=== PATIENT | male | born 1965 | race Caucasian/White ===

== ENCOUNTER 2017-06-20 19:58 | Inpatient (IN) | payer BC ==
[~2017-06-20] VITALS: Ht 188 cm; Wt 136.2 kg
[~2017-06-20 19:58] MED LIST: AMLO-110 PO; AVN4 PO; CEPH500C PO; DIABETIC MEDS; JANUMET; LISI-725 PO; LRT5 PO; OXYC1TAB3 PO; SIMV20TA2 PO
[2017-06-20] MEDS ORDERED: SODIUM CHLORIDE 0.9% 1000ML 1,000 ML IV STA (20:17)
[2017-06-20] MEDS ORDERED: ACETAMINOPHEN 500 MG TAB PO STA (20:17)
[2017-06-20] MEDS ORDERED: INSDGIPEN SC (20:24)
[2017-06-20] MEDS ORDERED: METF-384 PO (20:24)
[2017-06-20] MEDS ORDERED: LIRA18IN SC (20:24)
[2017-06-20] MEDS ORDERED: OPTIRAY 320 IV PRN (20:30)
[2017-06-20] MEDS ORDERED: PIPERACILLIN/TAZOBACTAM 4.5 GM/100ML D5W IV STA (20:34)
[2017-06-20] MEDS ORDERED: VANCOMYCIN IV 2,800 MG in SODIUM CHLORIDE 0.9% 500ML 500 ML IV STA (20:34)
[2017-06-20] MEDS ORDERED: VANCOMYCIN CONSULT ACTIVE PRN (20:45)
[2017-06-20] MEDS ORDERED: ESCI10TA17 PO (20:48)
[2017-06-20] MEDS ORDERED: LISI-725 PO (20:48)
[2017-06-20] MEDS ORDERED: METF500T5 PO (20:48)
[2017-06-20] MEDS ORDERED: REPA2TAB12 PO (20:48)
[2017-06-20] MEDS ORDERED: EMPA1TAB3 PO (20:48)
[2017-06-20] MEDS ORDERED: AMLO-110 PO (20:48)
[2017-06-20] MEDS ORDERED: PRAV20TA PO (20:48)
[2017-06-20] MEDS ORDERED: WARF3TAB6 PO (20:48)
[2017-06-20 20:58] LABS: INR 1.8 (0.9-1.1); PTT PATIENT 33.8 SECONDS (21.0-31.0)
--- NOTE | 2017-06-20 21:07 | EMERGENCY ROOM VISIT NOTE ---
History Report prepared by Radha: Daisy Bass Under the Supervision of: Dr. Gisele Barr M.D. First contact with patient: 20:17 Chief Complaint: CARDIAC ASSESSMENT Stated Complaint: L LEG SWOLLEN, NUMBNESS IN ARM Nursing Triage Summary: patient reports pain in bilateral arm pain radiating from shoulders,left sided chest pain radiating into neck and arms,patient reports hx of DVT of left leg,left leg swelling and calf redness since this weekend,left leg pain History of Present Illness The patient is a 52 year old male who presents to the Emergency Room for a cardiac assessment. The patient states that he has had intermittent chest pain that is shooting down both his arms and radiates into his back and neck starting today. He notes that this started at the same time the pain in his left leg started. He reports that it hurts from his ankle to his groin. He states that it became red as well. The patient complains of nausea and a blister on his left big toe. The patient denies chest pain right now, history of a heart attack, and has had a stress test in the past. The patient notes a history of blood clots, staph, and diabetes. He notes that he had his INR for his Coumadin checked recently, but does not know what the results were. 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 Source of History: patient Onset: today Position: chest Quality: other (radiating) Timing: intermittent Associated Symptoms: + neck pain, + nausea, + back pain, No chest pain Note: The patient complains of left leg pain and a blister on his left big toe. Review of Systems See HPI for pertinent positives & negatives. A total of 10 systems reviewed and were otherwise negative. Past Medical & Surgical Medical Problems: (1) Chest pain (2) Diabetes (3) HTN (hypertension) (4) Hx of blood clots Family History Cancer Diabetes mellitus Heart disease Hypertension Social History Smoking Status: Never Smoker Alcohol Use: none Marital Status: Housing Status: lives with roommate Occupation Status: employed Current/Historical Medications Scheduled Amlodipine (Norvasc), 5 MG PO DAILY Empagliflozin (Jardiance), 25 MG PO DAILY Escitalopram (Lexapro), 10 MG PO DAILY Insulin Glargine (Lantus Solostar), 50 UNITS SC QAM Liraglutide (Victoza), 1.8 MG SC DAILY Lisinopril (Zestril), 20 MG PO DAILY Metformin Hcl Er (Glucophage Er), 1,000 MG PO BID Pravastatin (Pravachol ), 20 MG PO HS Repaglinide (Prandin), 2 MG PO AC Warfarin Sod (Jantoven), 6-9 MG PO DIRECTED Allergies Coded Allergies: No Known Allergies (Verified , 06/20/17) Physical Exam Vital Signs Date Time Temp Pulse Resp B/P (MAP) Pulse Ox O2 Delivery O2 Flow Rate FiO2 06/20/17 22:59 109 18 122/65 91 Room Air 06/20/17 20:19 132 06/20/17 20:03 39.0 144 20 122/73 96 Room Air Physical Exam Vital signs reviewed. Noted to be febrile and tachycardic. General: Chronically ill-appearing, in no significant distress. HEENT: No scleral icterus, PERRLA, neck supple. Atraumatic. Cardiovascular: Regular rate and rhythm, no extra sounds. Pulmonary: Clear to auscultation bilaterally, normal work of breathing. Abdomen: Soft, obese abdomen, nontender, nondistended, positive bowel sounds. Musculoskeletal: Atraumatic, left lower extremity with erythema circumferentially to the distal lower extremity centrally to the patella. No lymphangitic streaking appreciated. Blister noted to the top of the right great toe that is with open skin to the plantar surface. Serosanguineous drainage noted. No tenderness or crepitus appreciated. Neurologic: Patient awake alert and oriented x 3, full strength in all 4 extremities. Cranial nerves 2 through 12 grossly intact. Skin: Left lower extremity skin changes as noted above, sunburn to the upper back. Otherwise warm to touch. Medical Decision & Procedures ER Provider Diagnostic Interpretation: Radiology results as stated below per my review and radiologist interpretation: L FOOT MIN 3 VIEWS ROUTINE HISTORY: 52 years-old Male L foot open wound great toe,osteo chronic left foot pain with open wound of the left great toe COMPARISON: None available TECHNIQUE: 3 views of the left foot FINDINGS: Moderate soft tissue swelling with deep tissue air about the distal great toe compatible with patient history of skin ulcer. No erosive changes to suggest osteomyelitis. No acute fracture or dislocation. 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 Peripheral vascular disease. No opaque foreign body. Small plantar and moderate Achilles enthesophytes about the calcaneus. IMPRESSION: 1. Moderate soft tissue swelling with skin ulcer of the great toe. No evidence of acute osteomyelitis at this time. 2. No acute fracture or dislocation. 3. Peripheral vascular disease. The above report was generated using voice recognition software. It may contain grammatical, syntax or spelling errors. Electronically signed by: Chris La M.D. 06/20/2017 9:06 PM Dictated Date/Time: 06/20/2017 9:04 PM (CHEST FOR PE) ANGIO WITH CT DOSE: 690.73 mGy.cm HISTORY: 52 years-old Male presents with acute fever, chest pain and shortness of breath TECHNIQUE: Multiple CTA images of the chest were obtained after the intravenous administration of 99 ml Optiray 320. Coronal and sagittal MIPS were obtained from the axial data set and were submitted for review. A dose lowering technique was utilized adhering to the principles of ALARA. COMPARISON: Chest radiograph 03/26/2014 FINDINGS: CTA: Heart is normal in size without pericardial effusion. Coronary arterial calcifications are present. Left vertebral artery emanates strictly from the aortic arch. Imaged great vessels are patent. Thoracic aorta is normal in course and caliber without aneurysm or dissection. Evaluation of the pulmonary bowden is very limited secondary to contrast bolus timing and respiratory motion. No central pulmonary embolus identified. The lobar, segmental and subsegmental branches are not well seen. CT CHEST: No dominant thyroid nodule or pathologic adenopathy identified. Respiratory motion limits evaluation of the lung parenchyma. There is no pneumothorax, pleural effusion or focal airspace consolidation. No suspicious pulmonary nodules or masses. Central airways are patent. Cholelithiasis without CT evidence of acute cholecystitis. No acute process of the imaged upper abdomen. Moderate symmetric bilateral gynecomastia. Bones appear intact. Multilevel endplate spurring about the spine. IMPRESSION: 1. Limited evaluation of the pulmonary arterial tree secondary to contrast bolus timing and respiratory motion. No central pulmonary embolus identified. 2. No focal airspace consolidation or pathologic adenopathy. 3. Cholelithiasis without CT evidence of acute cholecystitis. The above report was generated using voice recognition software. It may contain grammatical, syntax or spelling errors. Electronically signed by: Chris La M.D. 06/20/2017 10:01 PM Dictated Date/Time: 06/20/2017 9:52 PM Laboratory Results Test 06/20/17 20:17 06/20/17 20:20 06/20/17 20:29 06/20/17 20:30 Erythrocyte Sedimentation Rate 1 mm/hr (0-14) Platelet Estimate NORMAL Activated Partial Thromboplast Time 33.8 SECONDS (21.0-31.0) Partial Thromboplastin Ratio 1.3 Estimated Average Glucose 174 mg/dl Hemoglobin A1c 7.7 % (4.5-5.6) Magnesium Level 2.1 mg/dl (1.8-2.4) Total Bilirubin 1.3 mg/dl (0.2-1) Direct Bilirubin 0.3 mg/dl (0-0.2) Aspartate Amino Transf (AST/SGOT) 41 U/L (15-37) Alanine Aminotransferase (ALT/SGPT) 53 U/L (12-78) Alkaline Phosphatase 99 U/L (45-117) Total Creatine Kinase 146 U/L (39-308) C-Reactive Protein 3.08 mg/dl (0-0.29) Total Protein 8.0 gm/dl (6.4-8.2) Albumin 3.9 gm/dl (3.4-5.0) Lipase 175 U/L (73-393) Beta-Hydroxybutyric Acid 2.74 mg/dL (0.2-2.81) Thyroid Stimulating Hormone (TSH) 0.493 uIu/ml (0.300-4.500) Influenza Type A (RT-PCR) Neg for Influ A (NEG) Influenza Type B (RT-PCR) Neg for Influ B (NEG) Bedside Troponin I < 0.030 ng/ml (0-0.045) Test 06/20/17 21:54 06/20/17 23:13 Urine Color YELLOW Urine Appearance CLEAR (CLEAR) Urine pH 5.0 (4.5-7.5) Urine Specific [place] 1.037 (1.000-1.030) Urine Protein NEG (NEG) Urine Glucose (UA) 3+ (NEG) Urine Ketones NEG (NEG) Urine Occult Blood NEG (NEG) Urine Nitrite NEG (NEG) Urine Bilirubin NEG (NEG) Urine Urobilinogen NEG (NEG) Urine Leukocyte Esterase NEG (NEG) Lactic Acid Level 1.5 mmol/L (0.4-2.0) Laboratory results per my review. Medications Administered Medications (Trade) Dose Ordered Sig/Navjot Route Start Time Stop Time Status Last Admin Dose Admin Sodium Chloride 1,000 ml @ 999 mls/hr Q1H1M STAT IV 06/20/17 20:17 06/20/17 21:17 DC 06/20/17 20:31 999 MLS/HR Acetaminophen (Tylenol Tab) 1,000 mg NOW STAT PO 06/20/17 20:17 06/20/17 20:20 DC 06/20/17 20:55 1,000 MG Vancomycin HCl 2800 mg/Sodium Chloride 556 ml @ 200 mls/hr ONE STAT IV 06/20/17 20:34 06/20/17 23:20 DC 06/20/17 23:01 200 MLS/HR Piperacillin Sod/ Tazobactam Sod (Zosyn Iv) 4.5 gm NOW STAT IV 06/20/17 20:34 06/20/17 20:38 DC 06/20/17 20:55 4.5 GM Insulin Human Regular (novoLIN-R U-100 PER UNIT) 10 units NOW STAT SC 06/20/17 21:38 06/20/17 21:40 DC 06/20/17 23:12 10 UNITS Sodium Chloride 1,000 ml @ 500 mls/hr Q2H ONCE IV 06/20/17 22:45 06/21/17 00:44 DC 06/20/17 22:00 500 MLS/HR ECG Per My Interpretation Indication: chest pain Rate (beats per minute): 130 Rhythm: sinus tachycardia Findings: no acute ischemic change, no ectopy, other (previous inferior infarct , previous anterior infarct) ED Course 2016: Ordered Tylenol Tab 1000 mg PO, NSS 1000 ml @ 999 mls/hr IV. 2027: Past medical records reviewed. The patient was evaluated in room C8. A complete history and physical examination was performed. 2033: Ordered Zosyn Iv 4.5 gm IV, Vancomycin HCl 2800 mg/Sodium Chloride 556 ml @ 200 mls/hr IV. 2215: I reevaluated the patient and updated him on his results. I notified him of the treatment plan. He verbally expressed understanding and agreement. 2218: I reviewed the patient's case with Dr. Nuno Hospitalist. He will evaluate the patient for further management. Medical Decision Differential diagnosis: Influenza, other viral illness, pneumonia, urinary tract infection, metabolic abnormality, medication effect, cellulitis, meningitis, intra-abdominal source. This patient was evaluated and appeared to be in some discomfort. He is noted to be markedly febrile. Patient was given Tylenol p.o. IV fluids were initiated. Blood cultures and lactic acid were obtained. Patient was noted to have an elevated WBC. His tachycardia patient was started on IV vancomycin and IV and left great toe wound. X-ray of the foot reveal no evidence of acute fracture, no evidence of osteomyelitis at this time. Sed rate is normal, CRP is elevated. Ultrasound of the left lower extremity reveals likely chronic occlusive changes of the deep veins in the left lower extremity. INR is 1.8. CT scan of the chest reveals no evidence of central pulmonary embolus however the study is somewhat degraded. Patient is noted to be hyperglycemic with a glucose of 400. He was given 10 units of subcutaneous regular insulin. The patient was informed of the findings. He will be evaluated by the hospitalist service for admission and further management. Medication Reconcilliation Current Medication List: was personally reviewed by me Blood Pressure Screening Patient's blood pressure: Normal blood pressure Will be further monitored by the hospitalist. Consults Time Called: 2213 Consulting Physician: Dr. Nuno Hospitalist Returned Call: 2218 I reviewed the patient's case with Dr. Nuno Hospitalist. He will evaluate the patient for further management. Impression Primary Impression: Sepsis Additional Impressions: Cellulitis of left lower extremity Hyperglycemia Subtherapeutic international normalized ratio (INR) Scribe Attestation The scribe's documentation has been prepared under my direction and personally reviewed by me in its entirety. I confirm that the note above accurately reflects all work, treatment, procedures, and medical decision making performed by me. Departure Information Dispostion Being Evaluated By Hospitalist Referrals Linsey Mcguire N.P. (PCP) Patient Instructions My [facility] Problem Qualifiers
[2017-06-20 21:08] LABS: ALBUMIN 3.9 gm/dl (3.4-5.0); CALCIUM 9.6 mg/dl (8.5-10.1); CREATININE 1.35 mg/dl (0.60-1.40); POTASSIUM 4.4 mmol/L (3.5-5.1)
[2017-06-20 21:13] LABS: HEMATOCRIT 47.4 % (42-52); HEMOGLOBIN 16.6 g/dL (14.0-18.0); MEAN CELL VOLUME 95.6 fL (80-100); MEAN CORPUSCULAR HEMOGLOBIN 33.5 pg (25-34); MEAN PLATELET VOLUME 12.1 fL (7.4-10.4); PLATELET COUNT 118 K/uL (130-400); RED CELL DISTRIBUTION WIDTH CV 13.2 % (11.5-14.5); RED CELL DISTRIBUTION WIDTH SD 45.7 fL (36.4-46.3); WHITE BLOOD COUNT 19.45 K/uL (4.8-10.8)
[2017-06-20 21:15] LABS: BASO % 0.1 %; BASO ABS # 0.02 K/uL (0-0.2); IG# 0.07 K/uL (0.00-0.02); LYMPH ABS # 0.59 K/uL (1.2-3.4); MONO ABS # 0.97 K/uL (0.11-0.59); NEUT % 91.5 %
[2017-06-20 21:31] LABS: INFLUENZA A PCR Neg for Influ A (NEG); INFLUENZA B PCR Neg for Influ B (NEG)
[2017-06-20] MEDS ORDERED: NovoLIN-R INSULIN PER UNIT CHARGE SC STA (21:38)
--- NOTE | 2017-06-20 22:02 | DIAGNOSTIC IMAGING REPORT ---
(CHEST FOR PE) ANGIO WITH CT DOSE: 690.73 mGy.cm HISTORY: 52 years-old Male presents with acute fever, chest pain and shortness of breath TECHNIQUE: Multiple CTA images of the chest were obtained after the intravenous administration of 99 ml Optiray 320. Coronal and sagittal MIPS were obtained from the axial data set and were submitted for review. A dose lowering technique was utilized adhering to the principles of ALARA. COMPARISON: Chest radiograph 03/26/2014 FINDINGS: CTA: Heart is normal in size without pericardial effusion. Coronary arterial calcifications are present. Left vertebral artery emanates strictly from the aortic arch. Imaged great vessels are patent. Thoracic aorta is normal in course and caliber without aneurysm or dissection. Evaluation of the pulmonary bowden is very limited secondary to contrast bolus timing and respiratory motion. No central pulmonary embolus identified. The lobar, segmental and subsegmental branches are not well seen. CT CHEST: No dominant thyroid nodule or pathologic adenopathy identified. Respiratory motion limits evaluation of the lung parenchyma. There is no pneumothorax, pleural effusion or focal airspace consolidation. No suspicious pulmonary nodules or masses. Central airways are patent. Cholelithiasis without CT evidence of acute cholecystitis. No acute process of the imaged upper abdomen. Moderate symmetric bilateral gynecomastia. Bones appear intact. Multilevel endplate spurring about the spine. IMPRESSION: 1. Limited evaluation of the pulmonary arterial tree secondary to contrast bolus timing and respiratory motion. No central pulmonary embolus identified. 2. No focal airspace consolidation or pathologic adenopathy. 3. Cholelithiasis without CT evidence of acute cholecystitis. The above report was generated using voice recognition software. It may contain grammatical, syntax or spelling errors. Electronically signed by: Chris La M.D. 06/20/2017 10:01 PM Dictated Date/Time: 06/20/2017 9:52 PM
[2017-06-20] MEDS ORDERED: SODIUM CHLORIDE 0.9% 1000ML 1,000 ML IV ONE (22:45)
--- NOTE | 2017-06-20 22:54 | DIAGNOSTIC IMAGING REPORT ---
L VENOUS DOPP LOWER EXT UNILAT HISTORY: 52 years-old Male LLE DVT acute left lower extremity pain and swelling COMPARISON: None available TECHNIQUE: Multiple real-time sonographic images of the left lower extremity deep venous structures were obtained assessing grayscale appearance, color and spectral flow. FINDINGS: Common femoral vein is patent. Partially occlusive thrombus of the superficial femoral vein with patent adjacent collateral vessels noted. Partially occlusive thrombus is also seen within the popliteal vein with echogenic stranding. The calf veins are not well visualized. Areas of intermittent flow are noted within the posterior tibial and peroneal veins. Varicosities of the left calf. Left popliteal cyst measures up to 10.6 cm and is mildly complex. IMPRESSION: 1. Partially occlusive thrombus of the superficial femoral and popliteal veins with suggested adjacent collateral vessels suggests possible chronic etiology. 2. Intermittent flow within the posterior tibial and peroneal veins may also reflect partially occlusive thrombus. 3. Large left popliteal cyst. The above report was generated using voice recognition software. It may contain grammatical, syntax or spelling errors. Electronically signed by: Chris La M.D. 06/20/2017 10:53 PM Dictated Date/Time: 06/20/2017 10:49 PM
[2017-06-20] MEDS ORDERED: INSULIN GLARGINE SOLOSTAR 100 UNITS/ML 3 ML PEN SC STA (23:44)
[2017-06-20] MEDS ORDERED: WARFARIN SOD 5 MG TAB PO STA (23:46)
[2017-06-21] VITALS (7 sets, daily range): BP systolic 106–152; BP diastolic 65–89; PULSE 70–91; TEMP 36.9–38.1; O2SAT 92–98; Ht 188 cm; Wt 136.2 kg
[2017-06-21] MEDS ORDERED: GLUCAGON FOR INJ 1 MG VIAL SQ PRN (00:15)
[2017-06-21] MEDS ORDERED: MoRPHine SULFATE 2 MG/ML CARP IV PRN (00:15)
[2017-06-21] MEDS ORDERED: ACETAMINOPHEN 325 MG TAB PO PRN (00:15)
[2017-06-21] MEDS ORDERED: TRAMADOL HCL 50 MG TAB PO PRN (00:15)
[2017-06-21] MEDS ORDERED: CARBOHYDRATES FOR HYPOGLYCEMIA PO PRN (00:15)
[2017-06-21] MEDS ORDERED: DEXTROSE 50% 50 ML SYR IV PRN (00:15)
[2017-06-21] MEDS ORDERED: NITROGLYCERIN 0.4 MG SL PER TAB CHARGE SL PRN (00:15)
[2017-06-21] MEDS ORDERED: GLUCOSE 10 TABS/TUBE PO PRN (00:15)
[2017-06-21] MEDS ORDERED: GLUCOSE 40% GEL 15 GM TUBE PO PRN (00:15)
[2017-06-21] MEDS ORDERED: PROCHLORPERAZINE INJ 5 MG in SYRINGE 4 ML IV PRN (00:15)
[2017-06-21] MEDS ORDERED: INSULIN ASPART 100 UNITS/ML 3 ML PEN SC STA (00:16)
[2017-06-21] MEDS: CEFEPIME IV 2,000 MG in SYRINGE 7.5 ML IV SCH ×2 (04:00→16:31)
[2017-06-21 05:17] LABS: HEMATOCRIT 42.9 % (42-52); HEMOGLOBIN 15.3 g/dL (14.0-18.0); MEAN CELL VOLUME 94.9 fL (80-100); MEAN CORPUSCULAR HEMOGLOBIN 33.8 pg (25-34); MEAN CORPUSCULAR HGB CONC 35.7 g/dl (32-36); RED CELL DISTRIBUTION WIDTH CV 13.3 % (11.5-14.5); RED CELL DISTRIBUTION WIDTH SD 45.8 fL (36.4-46.3); WHITE BLOOD COUNT 11.39 K/uL (4.8-10.8)
[2017-06-21 05:18] LABS: MEAN PLATELET VOLUME 11.2 fL (7.4-10.4); PLATELET COUNT 95 K/uL (130-400)
[2017-06-21 05:23] LABS: INR 1.6 (0.9-1.1)
[2017-06-21 05:35] LABS: BASO % 0.2 %; BASO ABS # 0.02 K/uL (0-0.2); IG# 0.01 K/uL (0.00-0.02); LYMPH % 6.8 %; LYMPH ABS # 0.77 K/uL (1.2-3.4); MONO % 7.2 %; MONO ABS # 0.82 K/uL (0.11-0.59); NEUT % 85.7 %; NEUT ABS # 9.77 K/uL (1.4-6.5)
--- NOTE | 2017-06-21 05:44 | HISTORY & PHYSICAL EXAMINATION ---
DATE OF ADMISSION: 06/20/2017 PRIMARY CARE DOCTOR: Dr. Austin. CHIEF COMPLAINT: Chest pain, left leg swelling. HISTORY OF PRESENT ILLNESS: History obtained from patient and records. 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 chronic thrombocytopenia. Patient was not feeling well yesterday. He noticed a blister on the left great toe, which subsequently ruptured yielding yellow drainage. Had increased swelling in the left leg. Patient later noted achy stomach upset going to the chest and both arms. No cough. Some SOB. Fever, chills. At the Emergency Room. Patient received vancomycin and Zosyn for sepsis. Patient currently comfortable. MEDICAL HISTORY: As above. Blood sugar is 100-300 at home. SURGERIES: He has had orthopedic procedures. HOME MEDICATIONS: Include Glucophage, Pravachol, ranitidine, Coumadin, amlodipine, Lexapro, Lantus, Victoza, Zestril. ALLERGIES: No known drug allergies. FAMILY HISTORY: Diabetes, heart disease, stroke. PERSONAL AND SOCIAL HISTORY: Nonsmoker, no chronic intake of alcoholic beverages. farmworker field crop. REVIEW OF SYSTEMS: As per HPI, all 10 systems reviewed, all other ROS negative. PHYSICAL EXAMINATION: VITAL SIGNS: Blood pressure was noted to be 130/70, pulse rate 104, later 94, RR 26.9, sats 96 on room air. GENERAL: Noted to be obese, slightly uncomfortable, in no respiratory distress. SKIN: Normal color, warm. HEENT: [place] palpebral conjunctivae. No ptosis. Dry oral mucosa. NECK: Short, supple. CHEST: CTA, No tenderness. HEART: RRR, no murmur. ABDOMEN: Some distention, nontender. EXTREMITIES: Streaky induration, LLE, dressing on the left great toe. Minimal LLE tenderness NEUROLOGIC: Coherent. No gross focality. LABS: Hemoglobin 16.6, hematocrit noted to be 47, white cell count 19, platelets 118. Sodium 134, potassium 4.4, chloride 99, CO2 27, creatinine 1, glucose 402. Troponin 0.03. INR was 1.8. Hemoglobin A1c September 2016 was 8.7. Foot x-ray left, moderate soft swelling, skin ulcer L great toe. No osteomyelitis. L Lower extremity ultrasound, partially occlusive thrombus, L femoral popliteal vein, possible chronic; intermittent flow, posterior tibial and peroneal veins are partially occlusive thrombus. CTA no PE, cholelithiasis. ASSESSMENT: 1. Severe sepsis SIRS plus lactic acid elevation from diabetic foot infection, L w/ secondary LLE cellulitis 2. chest pain secondary to gastrointestinal upset, sinus tachycardia 2 to sepsis Patient currently comfortable. 3. HTN, stable 4. DM2, insulin requiring suboptimal controlled as of recent outpatient HgA1C from last year. 5. Recurrent deep venous thrombosis on Coumadin. INR slightly subtherapeutic. 6. chronic thrombocytopenia PLAN: PCU CS, Doxycycline, Cefepime for now Local measures for cellulitis, offload LLE IVF, Follow lactic acid Podiatry consult RE diabetic foot infection left ID consult pending CS results availability Follow troponin, TTE for chest pain. basal insulin, ISS BG goal 140-180, carb count coverage Patient due for hemoglobin A1c. Diabetic education. May benefit from pharmacy glycemic control consult. DVT prophylaxis, Coumadin INR 2-3. Full code. MTDD
[2017-06-21 05:51] LABS: BLOOD UREA NITROGEN 20 mg/dl (7-18); CALCIUM 8.7 mg/dl (8.5-10.1); CARBON DIOXIDE 30 mmol/L (21-32); CREATININE 1.07 mg/dl (0.60-1.40); GLUCOSE 147 mg/dl (70-99); POTASSIUM 4.3 mmol/L (3.5-5.1); SODIUM 137 mmol/L (136-145)
[2017-06-21] MEDS ORDERED: PERFLUTREN LIPID MICROSPHERE (DEFINITY) IV ONE (06:51)
[2017-06-21] MEDS: ESCITALOPRAM OXALATE 10 MG TAB PO SCH (07:45)
[2017-06-21 08:01] LABS: HEMOGLOBIN A1C 7.7 % (4.5-5.6)
[2017-06-21] MEDS: INSULIN ASPART 100 UNITS/ML 3 ML PEN SC SCH ×4 (08:07→21:29)
[2017-06-21] MEDS: ENOXAPARIN 150 MG/1ML SYR SQ SCH ×2 (08:09→19:58)
[2017-06-21] MEDS ORDERED: LISINOPRIL 20 MG TAB PO SCH (09:00)
[2017-06-21] MEDS ORDERED: DOXYCYCLINE IV 100 MG in DEXTROSE 5% 100ML 100 ML IV SCH (09:00)
[2017-06-21] MEDS ORDERED: CEFEPIME CONSULT ACTIVE PRN (09:00)
[2017-06-21] MEDS ORDERED: AMLODIPINE BESYLATE 5 MG TAB PO SCH (09:00)
--- NOTE | 2017-06-21 11:06 | ECHOCARDIOGRAM REPORT ---
*NOTICE TO RECEIVING REPUBLICAN AGENCY This information is strictly Confidential and protected under [place] law. [place] law prohibits you from making any further disclosure of this information unless further disclosure is expressly permitted by the written consent of the person to whom it pertains or is authorized by law. A general authorization for the release of medical or other information is not sufficient for this purpose. Hospital accepts no responsibility if the information is made available to any other person, INCLUDING THE PATIENT. Interpretation Summary * Name: LENARD HEAD Study Date: 06/21/2017 06:19 AM BP: 149/89 mmHg * Patient Location: [facility]\S\N288\S\2 HR: 91 * : 1965 (M/d/yyyy) Gender: Male Height: 74 in * Age: 52 yrs Ethnicity: [place] Weight: 309 lb * Ordering Physician: Parish Banda * Referring Physician: Self, Referred * Performed By: Clint Torrez RCS * * Reason For Study: Chest Pain * BSA: 2.6 m2 * -- Conclusions -- * Technically difficult study. * Mildly dilated LV chamber size with mild concentric LVH. * Low normal LV systolic function with borderline global hypokinesis, EF 50-55%. * Grade I diastolic dysfunction. * Poorly visualized valvular structures without significant stenosis or regurgitation by Doppler. Procedure Details * A complete two-dimensional transthoracic echocardiogram was performed (2D, M-mode, Doppler and color flow Doppler). * A contrast injection of Definity was performed to improve assessment of LV function. * Contrast was injected into an intravenous site in the left arm. * One vial of Definity ultrasound contrast was diluted in normal saline to a total volume of 10 ml. A total of '1' ml of solution was administered during imaging. * Lot # [id number] of Definity utilized for procedure. * Expiration date . * The attending nurse who injected the contrast agent was Bhavana Arellano RN. Left Ventricle * The left ventricle is normal in size. * There is no thrombus. * There is mild concentric left ventricular hypertrophy. * Ejection Fraction = 50-55%. * Left ventricular systolic function is low normal. * Left ventricular systolic function is borderline reduced. * There is borderline global hypokinesis of the left ventricle. Right Ventricle * The right ventricle is not well visualized. * The right ventricular systolic function is qualitatively normal. Atria * The left atrium is mildly dilated. * Right atrium not well visualized. Mitral Valve * The mitral valve is not well visualized. * There is mild to moderate mitral annular calcification. * There is no mitral valve stenosis. * There is no mitral regurgitation noted. Tricuspid Valve * The tricuspid valve is not well visualized. * There is no tricuspid stenosis. * No tricuspid regurgitation. Aortic Valve * The aortic valve is trileaflet. * The aortic valve opens well. * There is no significant aortic regurgitation. Pulmonic Valve * The pulmonary valve is not well seen, but the Doppler examination is normal without significant regurgitation or stenosis. Great Vessels * The aortic root and proximal ascending aorta are normal sized. Pericardium/Pleural * There is no pericardial effusion. Left Ventricular Diastolic Function * Grade I diastolic dysfunction, (abnormal relaxation pattern). MMode 2D Measurements and Calculations IVSd 1.2 cm IVSs 1.5 cm LVIDd 5.3 cm LVIDs 3.8 cm LVPWd 1.1 cm LVPWs 1.6 cm IVS/LVPW 1.0 FS 29.1 % EDV(Teich) 135.6 ml ESV(Teich) 60.4 ml EF(Teich) 55.5 % EDV(cubed) 149.2 ml ESV(cubed) 53.1 ml EF(cubed) 64.4 % % IVS thick 26.5 % % LVPW thick 35.9 % LV mass(C)d 244.0 grams LV mass(C)dI 93.3 grams/m\S\2 LV mass(C)s 217.1 grams LV mass(C)sI 83.0 grams/m\S\2 SV(Teich) 75.2 ml SI(Teich) 28.8 ml/m\S\2 SV(cubed) 96.1 ml SI(cubed) 36.7 ml/m\S\2 Ao root diam 3.9 cm Ao root area 12.1 cm\S\2 ACS 1.9 cm LA dimension 4.4 cm asc Aorta Diam 3.5 cm LA/Ao 1.1 EDV(MOD-sp4) 288.0 ml ESV(MOD-sp4) 146.9 ml EF(MOD-sp4) 49.0 % EDV(MOD-sp2) 150.4 ml ESV(MOD-sp2) 75.2 ml EF(MOD-sp2) 50.0 % SV(MOD-sp4) 141.1 ml SI(MOD-sp4) 54.0 ml/m\S\2 SV(MOD-sp2) 75.2 ml SI(MOD-sp2) 28.8 ml/m\S\2 Doppler Measurements and Calculations MV E max layton 83.8 cm/sec MV A max layton 84.8 cm/sec MV E/A 0.99 MV P1/2t max [place] 95.3 cm/sec MV P1/2t 71.0 msec MVA(P1/2t) 3.1 cm\S\2 MV dec slope 393.1 cm/sec\S\2 MV dec time 0.23 sec Ao V2 max 121.6 cm/sec Ao max PG 5.9 mmHg Ao max PG (full) 1.9 mmHg LV V1 max PG 4.0 mmHg LV V1 max 99.7 cm/sec PA V2 max 75.9 cm/sec PA max PG 2.3 mmHg
--- NOTE | 2017-06-21 16:27 | Progress Note ---
Internal Med Progress Note Date of Service: June 21, 2017. Provider Documentation: SUBJECTIVE: Patient seen and examined at bedside. He was seem by podiatry and the application architect performed Debridement of left hallux sloughing and ulcerative area to the level of subcutaneous tissue, dressed with Adaptic and dry sterile dressing. Patient is ambulatory. Not in acute pain OBJECTIVE: GENERAL: No acute distress. HEENT: EOMI NECK: No JVD CHEST: CTABL, no wheezing, breathing on room air HEART: Regular, no murmur. ABDOMEN: truncal obesity, positive bowel sounds, nontender EXTREMITIES: erythema on the left lower leg with the dressing on the left great toe. NEUROLOGIC: awake, alert, ambulatory ASSESSMENT & PLAN: On admission patient presented with sepsis - SIRS with lactic acid elevation - which was secondary to diabetic left foot ( ulcerative area to the level of subcutaneous tissue of the left hallux) -Left foot X ray: Moderate soft tissue swelling with skin ulcer of the great toe. No evidence of acute osteomyelitis at this time. No acute fracture or dislocation. Peripheral vascular disease. -started on doxycycline and cefepime -follow up blood cultures -Podiatry 06/21/17: Debridement of left hallux sloughing and ulcerative area to the level of subcutaneous tissue, dressed with Adaptic and dry sterile dressing. -Wound specimen GRAM STAIN Final, NO WBCs SEEN, NO ORGANISMS SEEN, SURFACE WOUND CULTURE PENDING Chest pain secondary to gastrointestinal upset, sinus tachycardia 2 to sepsis -Admission CTA 1. Limited evaluation of the pulmonary arterial tree secondary to contrast bolus timing and respiratory motion. No central pulmonary embolus identified. 2. No focal airspace consolidation or pathologic adenopathy. 3. Cholelithiasis without CT evidence of acute cholecystitis -Echocardiogram: Technically difficult study. Mildly dilated LV chamber size with mild concentric LVH. Low normal LV systolic function with borderline global hypokinesis, EF 50-55%. Grade I diastolic dysfunction. Poorly visualized valvular structures without significant stenosis or regurgitation by Doppler. Recurrent deep venous thrombosis on Coumadin. -1. Partially occlusive thrombus of the superficial femoral and popliteal veins with suggested adjacent collateral vessels suggests possible chronic etiology. 2. Intermittent flow within the posterior tibial and peroneal veins may also reflect partially occlusive thrombus. 3. Large left popliteal cyst. -INR 1.8 to 1.6, Full dose Lovenox bridge started and continue coumadin until therapeutic INR DM2, insulin requiring. HBA1c 7.7 -Lantus and Novolog as per protocol HTN - jayla DVT prophylaxis: Lovenox 141 mg BID and coumadin, continue combination until INR of 2 and then continue coumadin only Full code. Vital Signs: Date Time Temp Pulse Resp B/P (MAP) Pulse Ox O2 Delivery O2 Flow Rate FiO2 06/21/17 15:11 37.0 70 18 106/68 (81) 92 Room Air 06/21/17 13:09 37.7 06/21/17 11:56 38.1 81 18 120/70 (87) 95 Room Air 06/21/17 11:50 Room Air 06/21/17 07:45 Room Air 06/21/17 05:01 37.4 91 16 149/89 92 Room Air 06/21/17 04:00 37.3 73 18 148/65 (92) 92 Room Air 06/21/17 00:46 36.8 06/21/17 00:28 94 20 114/58 94 Room Air 06/21/17 00:26 93 06/20/17 22:59 109 18 122/65 91 Room Air 06/20/17 20:19 132 06/20/17 20:03 39.0 144 20 122/73 96 Room Air Lab Results: Results Past 24 Hours Test 06/20/17 20:17 06/20/17 20:20 06/20/17 20:29 06/20/17 20:30 Range/Units Erythrocyte Sedimentation Rate 1 0-14 mm/hr White Blood Count 19.45 4.8-10.8 K/uL Red Blood Count 4.96 4.7-6.1 M/uL Hemoglobin 16.6 14.0-18.0 g/dL Hematocrit 47.4 42-52 % Mean Corpuscular Volume 95.6 80-100 fL Mean Corpuscular Hemoglobin 33.5 25-34 pg Mean Corpuscular Hemoglobin Concent 35.0 32-36 g/dl Platelet Count 118 130-400 K/uL Mean Platelet Volume 12.1 7.4-10.4 fL Neutrophils (%) (Auto) 91.5 % Lymphocytes (%) (Auto) 3.0 % Monocytes (%) (Auto) 5.0 % Eosinophils (%) (Auto) 0.0 % Basophils (%) (Auto) 0.1 % Neutrophils # (Auto) 17.80 1.4-6.5 K/uL Lymphocytes # (Auto) 0.59 1.2-3.4 K/uL Monocytes # (Auto) 0.97 0.11-0.59 K/uL Eosinophils # (Auto) 0.00 0-0.5 K/uL Basophils # (Auto) 0.02 0-0.2 K/uL RDW Standard Deviation 45.7 36.4-46.3 fL RDW Coefficient of Variation 13.2 11.5-14.5 % Immature Granulocyte % (Auto) 0.4 % Immature Granulocyte # (Auto) 0.07 0.00-0.02 K/uL Platelet Estimate NORMAL Prothrombin Time 18.7 9.0-12.0 SECONDS Prothromb Time International Ratio 1.8 0.9-1.1 Activated Partial Thromboplast Time 33.8 21.0-31.0 SECONDS Partial Thromboplastin Ratio 1.3 Sodium Level 134 136-145 mmol/L Potassium Level 4.4 3.5-5.1 mmol/L Chloride Level 99 98-107 mmol/L Carbon Dioxide Level 27 21-32 mmol/L Anion Gap 8.0 3-11 mmol/L Blood Urea Nitrogen 25 7-18 mg/dl Creatinine 1.35 0.60-1.40 mg/dl Est Creatinine Clear Calc Drug Dose 94.4 ml/min Estimated GFR () 69.0 Estimated GFR (Non- 59.5 BUN/Creatinine Ratio 18.2 10-20 Random Glucose 402 70-99 mg/dl Estimated Average Glucose 174 mg/dl Hemoglobin A1c 7.7 4.5-5.6 % Calcium Level 9.6 8.5-10.1 mg/dl Magnesium Level 2.1 1.8-2.4 mg/dl Total Bilirubin 1.3 0.2-1 mg/dl Direct Bilirubin 0.3 0-0.2 mg/dl Aspartate Amino Transf (AST/SGOT) 41 15-37 U/L Alanine Aminotransferase (ALT/SGPT) 53 12-78 U/L Alkaline Phosphatase 99 45-117 U/L Total Creatine Kinase 146 39-308 U/L C-Reactive Protein 3.08 0-0.29 mg/dl Total Protein 8.0 6.4-8.2 gm/dl Albumin 3.9 3.4-5.0 gm/dl Lipase 175 73-393 U/L Beta-Hydroxybutyric Acid 2.74 0.2-2.81 mg/dL Thyroid Stimulating Hormone (TSH) 0.493 0.300-4.500 uIu/ml Influenza Type A (RT-PCR) Neg for Influ A NEG Influenza Type B (RT-PCR) Neg for Influ B NEG Bedside Troponin I < 0.030 0-0.045 ng/ml Test 06/20/17 20:47 06/20/17 21:54 06/20/17 23:13 06/21/17 00:26 Range/Units Lactic Acid Level 2.7 1.5 0.4-2.0 mmol/L Urine Color YELLOW Urine Appearance CLEAR CLEAR Urine pH 5.0 4.5-7.5 Urine Specific [place] 1.037 1.000-1.030 Urine Protein NEG NEG Urine Glucose (UA) 3+ NEG Urine Ketones NEG NEG Urine Occult Blood NEG NEG Urine Nitrite NEG NEG Urine Bilirubin NEG NEG Urine Urobilinogen NEG NEG Urine Leukocyte Esterase NEG NEG Bedside Glucose 230 70-99 mg/dl Test 06/21/17 01:18 06/21/17 05:09 06/21/17 07:43 06/21/17 11:21 Range/Units Bedside Glucose 199 134 160 70-99 mg/dl White Blood Count 11.39 4.8-10.8 K/uL Red Blood Count 4.52 4.7-6.1 M/uL Hemoglobin 15.3 14.0-18.0 g/dL Hematocrit 42.9 42-52 % Mean Corpuscular Volume 94.9 80-100 fL Mean Corpuscular Hemoglobin 33.8 25-34 pg Mean Corpuscular Hemoglobin Concent 35.7 32-36 g/dl Platelet Count 95 130-400 K/uL Mean Platelet Volume 11.2 7.4-10.4 fL Neutrophils (%) (Auto) 85.7 % Lymphocytes (%) (Auto) 6.8 % Monocytes (%) (Auto) 7.2 % Eosinophils (%) (Auto) 0.0 % Basophils (%) (Auto) 0.2 % Neutrophils # (Auto) 9.77 1.4-6.5 K/uL Lymphocytes # (Auto) 0.77 1.2-3.4 K/uL Monocytes # (Auto) 0.82 0.11-0.59 K/uL Eosinophils # (Auto) 0.00 0-0.5 K/uL Basophils # (Auto) 0.02 0-0.2 K/uL RDW Standard Deviation 45.8 36.4-46.3 fL RDW Coefficient of Variation 13.3 11.5-14.5 % Immature Granulocyte % (Auto) 0.1 % Immature Granulocyte # (Auto) 0.01 0.00-0.02 K/uL Red Blood Cell Morphology Unremarkable Prothrombin Time 17.1 9.0-12.0 SECONDS Prothromb Time International Ratio 1.6 0.9-1.1 Sodium Level 137 136-145 mmol/L Potassium Level 4.3 3.5-5.1 mmol/L Chloride Level 106 98-107 mmol/L Carbon Dioxide Level 30 21-32 mmol/L Anion Gap 1.0 3-11 mmol/L Blood Urea Nitrogen 20 7-18 mg/dl Creatinine 1.07 0.60-1.40 mg/dl Est Creatinine Clear Calc Drug Dose 118.2 ml/min Estimated GFR () 91.4 Estimated GFR (Non- 78.8 BUN/Creatinine Ratio 18.7 10-20 Random Glucose 147 70-99 mg/dl Calcium Level 8.7 8.5-10.1 mg/dl Troponin I < 0.015 0-0.045 ng/ml Hepatitis C Antibody Screen NEG NEG Test 06/21/17 16:21 Range/Units Bedside Glucose 158 70-99 mg/dl Microbiology Results 06/20/17 Blood Culture, Received Pending 06/20/17 Blood Culture, Received Pending 06/21/17 Gram Stain - Final, Resulted 06/21/17 Wound Culture, Resulted Pending
[2017-06-21] MEDS: WARFARIN SOD 5 MG TAB PO SCH (16:28)
[2017-06-21] MEDS: DOXYCYCLINE IV 100 MG in DEXTROSE 5% 100ML 100 ML IV SCH (19:58)
[2017-06-21] MEDS ORDERED: INSULIN GLARGINE SOLOSTAR 100 UNITS/ML 3 ML PEN SC SCH (21:00)
[2017-06-21] MEDS: PRAVASTATIN SOD 20 MG TAB PO SCH (22:38)
[2017-06-22 03:47] VITALS: BP 121/76; PULSE 84; TEMP 36.9; O2SAT 95
[2017-06-22] MEDS: CEFEPIME IV 2,000 MG in SYRINGE 7.5 ML IV SCH ×2 (04:16→15:59)
[2017-06-22 04:43] LABS: HEMATOCRIT 42.9 % (42-52); HEMOGLOBIN 14.8 g/dL (14.0-18.0); MEAN CELL VOLUME 95.5 fL (80-100); MEAN CORPUSCULAR HGB CONC 34.5 g/dl (32-36); RED CELL DISTRIBUTION WIDTH CV 13.3 % (11.5-14.5); WHITE BLOOD COUNT 5.69 K/uL (4.8-10.8)
[2017-06-22 04:48] LABS: MEAN PLATELET VOLUME 11.7 fL (7.4-10.4); PLATELET COUNT 95 K/uL (130-400)
[2017-06-22 04:54] LABS: INR 1.6 (0.9-1.1)
[2017-06-22 05:00] LABS: ALBUMIN 2.9 gm/dl (3.4-5.0); CALCIUM 8.1 mg/dl (8.5-10.1); CREATININE 1.04 mg/dl (0.60-1.40); POTASSIUM 4.4 mmol/L (3.5-5.1)
[2017-06-22 05:03] LABS: TOTAL PROTEIN 6.7 gm/dl (6.4-8.2)
[2017-06-22 05:09] LABS: BASO % 0.4 %; BASO ABS # 0.02 K/uL (0-0.2); EOS ABS # 0.17 K/uL (0-0.5); IG# 0.01 K/uL (0.00-0.02); LYMPH % 22.7 %; LYMPH ABS # 1.29 K/uL (1.2-3.4); MONO % 14.1 %; NEUT % 59.6 %
[2017-06-22] MEDS ORDERED: METOPROLOL SUCC 25MG EXT REL TAB PO ONE (06:04)
--- NOTE | 2017-06-22 06:05 | Progress Note ---
Internal Med Progress Note Date of Service: June 22, 2017. Provider Documentation: Made aware by RN of run of NSVT. median SBP 120s Patient asymptomatic. Serum electrolytes okay. AP NSVT Hypokinesis on TTE Initiate beta-dong to suppress NSVT Continue home lisinopril. DC Norvasc to avoid hypotension. Will relay to AM provider. Vital Signs: Date Time Temp Pulse Resp B/P (MAP) Pulse Ox O2 Delivery O2 Flow Rate FiO2 06/22/17 11:27 37.1 68 16 120/73 (89) 95 Room Air 06/22/17 08:00 Room Air 06/22/17 07:43 37.1 18 116/73 (87) 94 Room Air 06/22/17 04:00 Room Air 06/22/17 03:47 36.9 84 18 121/76 (91) 95 Room Air 06/22/17 00:00 Room Air 06/21/17 23:58 37.2 20 129/75 (93) 94 Room Air 06/21/17 20:08 36.9 76 20 152/80 (104) 98 Room Air 06/21/17 20:00 Room Air 06/21/17 16:00 Room Air 06/21/17 15:11 37.0 70 18 106/68 (81) 92 Room Air 06/21/17 13:09 37.7 Lab Results: Results Past 24 Hours Test 06/21/17 16:21 06/21/17 20:53 06/22/17 04:28 06/22/17 11:44 Range/Units Bedside Glucose 158 187 201 70-99 mg/dl White Blood Count 5.69 4.8-10.8 K/uL Red Blood Count 4.49 4.7-6.1 M/uL Hemoglobin 14.8 14.0-18.0 g/dL Hematocrit 42.9 42-52 % Mean Corpuscular Volume 95.5 80-100 fL Mean Corpuscular Hemoglobin 33.0 25-34 pg Mean Corpuscular Hemoglobin Concent 34.5 32-36 g/dl Platelet Count 95 130-400 K/uL Mean Platelet Volume 11.7 7.4-10.4 fL Neutrophils (%) (Auto) 59.6 % Lymphocytes (%) (Auto) 22.7 % Monocytes (%) (Auto) 14.1 % Eosinophils (%) (Auto) 3.0 % Basophils (%) (Auto) 0.4 % Neutrophils # (Auto) 3.40 1.4-6.5 K/uL Lymphocytes # (Auto) 1.29 1.2-3.4 K/uL Monocytes # (Auto) 0.80 0.11-0.59 K/uL Eosinophils # (Auto) 0.17 0-0.5 K/uL Basophils # (Auto) 0.02 0-0.2 K/uL RDW Standard Deviation 46.0 36.4-46.3 fL RDW Coefficient of Variation 13.3 11.5-14.5 % Immature Granulocyte % (Auto) 0.2 % Immature Granulocyte # (Auto) 0.01 0.00-0.02 K/uL Prothrombin Time 17.1 9.0-12.0 SECONDS Prothromb Time International Ratio 1.6 0.9-1.1 Sodium Level 138 136-145 mmol/L Potassium Level 4.4 3.5-5.1 mmol/L Chloride Level 104 98-107 mmol/L Carbon Dioxide Level 30 21-32 mmol/L Anion Gap 4.0 3-11 mmol/L Blood Urea Nitrogen 16 7-18 mg/dl Creatinine 1.04 0.60-1.40 mg/dl Est Creatinine Clear Calc Drug Dose 121.6 ml/min Estimated GFR () 94.6 Estimated GFR (Non- 81.6 BUN/Creatinine Ratio 15.1 10-20 Random Glucose 156 70-99 mg/dl Calcium Level 8.1 8.5-10.1 mg/dl Magnesium Level 2.1 1.8-2.4 mg/dl Total Bilirubin 0.8 0.2-1 mg/dl Aspartate Amino Transf (AST/SGOT) 26 15-37 U/L Alanine Aminotransferase (ALT/SGPT) 40 12-78 U/L Alkaline Phosphatase 69 45-117 U/L Total Protein 6.7 6.4-8.2 gm/dl Albumin 2.9 3.4-5.0 gm/dl Globulin 3.8 2.5-4.0 gm/dl Albumin/Globulin Ratio 0.8 0.9-2
[2017-06-22 07:43] VITALS: BP 116/73; TEMP 37.1; O2SAT 94
[2017-06-22] MEDS: ENOXAPARIN 150 MG/1ML SYR SQ SCH ×2 (08:59→21:07)
[2017-06-22] MEDS: ESCITALOPRAM OXALATE 10 MG TAB PO SCH (08:59)
[2017-06-22] MEDS: DOXYCYCLINE IV 100 MG in DEXTROSE 5% 100ML 100 ML IV SCH ×2 (08:59→21:09)
[2017-06-22] MEDS: INSULIN ASPART 100 UNITS/ML 3 ML PEN SC SCH ×4 (09:08→21:16)
[2017-06-22] MEDS: INSULIN GLARGINE SOLOSTAR 100 UNITS/ML 3 ML PEN SC SCH (09:08)
[2017-06-22 11:27] VITALS: BP 120/73; PULSE 68; TEMP 37.1; O2SAT 95
[2017-06-22] MEDS: LISINOPRIL 20 MG TAB PO SCH (12:24)
[2017-06-22 15:16] VITALS: BP 120/73; PULSE 74; TEMP 36.9; O2SAT 94
--- NOTE | 2017-06-22 15:38 | Progress Note ---
Medicine Progress Note Date & Time of Visit: June 22, 2017 at 15:05 . Subjective CC: Follow-up visit for cellulitis and other problems.. HPI: Left leg feels better, but still has persistent discomfort and erythema. No fever. 35 beat run of nonsustained ventricular tachycardia noted around 3:00 this morning. Patient was sleeping at the time. Arrhythmia was not associated with chest pain, palpitations, or other symptoms. ROS: General- no fever, no chills Resp- no cough; no shortness of breath Cardiac- as noted above in HPI GI- no nausea, no vomiting, no diarrhea, no constipation - no dysuria, no difficulty voiding . Objective Last 8 Hrs Date Time Temp Pulse Resp B/P (MAP) Pulse Ox O2 Delivery O2 Flow Rate FiO2 06/22/17 15:16 36.9 74 18 120/73 (89) 94 06/22/17 12:15 Room Air 06/22/17 11:27 37.1 68 16 120/73 (89) 95 Room Air 06/22/17 08:00 Room Air 06/22/17 07:43 37.1 18 116/73 (87) 94 Room Air Physical Exam: General-lying in bed, no distress Lungs- clear to auscultation; no respiratory distress Cardiovascular- RRR; no murmur or gallop appreciated ; no JVD; trace pretibial edema Abdomen- + bowel sounds, soft, nontender Extremities- no cyanosis; no calf tenderness; ulceration left great toe; moderate erythema left lower extremity below the knee Neuro- alert, oriented Skin- warm & dry . Laboratory Results: Last 24 Hours Test 06/21/17 16:21 06/21/17 20:53 06/22/17 04:28 06/22/17 11:44 Bedside Glucose 158 mg/dl 187 mg/dl 201 mg/dl White Blood Count 5.69 K/uL Red Blood Count 4.49 M/uL Hemoglobin 14.8 g/dL Hematocrit 42.9 % Mean Corpuscular Volume 95.5 fL Mean Corpuscular Hemoglobin 33.0 pg Mean Corpuscular Hemoglobin Concent 34.5 g/dl Platelet Count 95 K/uL Mean Platelet Volume 11.7 fL Neutrophils (%) (Auto) 59.6 % Lymphocytes (%) (Auto) 22.7 % Monocytes (%) (Auto) 14.1 % Eosinophils (%) (Auto) 3.0 % Basophils (%) (Auto) 0.4 % Neutrophils # (Auto) 3.40 K/uL Lymphocytes # (Auto) 1.29 K/uL Monocytes # (Auto) 0.80 K/uL Eosinophils # (Auto) 0.17 K/uL Basophils # (Auto) 0.02 K/uL RDW Standard Deviation 46.0 fL RDW Coefficient of Variation 13.3 % Immature Granulocyte % (Auto) 0.2 % Immature Granulocyte # (Auto) 0.01 K/uL Prothrombin Time 17.1 SECONDS Prothromb Time International Ratio 1.6 Sodium Level 138 mmol/L Potassium Level 4.4 mmol/L Chloride Level 104 mmol/L Carbon Dioxide Level 30 mmol/L Anion Gap 4.0 mmol/L Blood Urea Nitrogen 16 mg/dl Creatinine 1.04 mg/dl Est Creatinine Clear Calc Drug Dose 121.6 ml/min Estimated GFR () 94.6 Estimated GFR (Non- 81.6 BUN/Creatinine Ratio 15.1 Random Glucose 156 mg/dl Calcium Level 8.1 mg/dl Magnesium Level 2.1 mg/dl Total Bilirubin 0.8 mg/dl Aspartate Amino Transf (AST/SGOT) 26 U/L Alanine Aminotransferase (ALT/SGPT) 40 U/L Alkaline Phosphatase 69 U/L Total Protein 6.7 gm/dl Albumin 2.9 gm/dl Globulin 3.8 gm/dl Albumin/Globulin Ratio 0.8 Assessment & Plan SEPSIS / FOOT ULCER / CELLULITIS LLE Met criteria for sepsis at time of admission per Sepsis-1 definition and current CMS guidelines. Source = left foot ulcer + cellulitis left lower extremity. Serum lactate 2.7, repeat 1.5. Hemodynamically stable. Blood cultures obtained and placed on broad-spectrum antibiotic coverage, initially with piperacillin/tazobactam and vancomycin. Now afebrile. Cultures negative. Podiatry consulted; debridement left great toe ulcer performed. Currently receiving IV doxycycline and cefepime. Consult ID for recommendations. NONSUSTAINED VENTRICULAR TACHYCARDIA Occurred during sleep. Potassium and magnesium normal. Echocardiogram 06/21 demonstrated mild global hypokinesis with LVEF 50-55%. Started on metoprolol. Continue cardiac monitoring. Cardiology consulted. Consider sleep apnea; check nocturnal pulse oximetry and eventual sleep study if not recently performed. HYPERTENSION Continue lisinopril. Metoprolol initiated for ventricular tachycardia and hypertension. Amlodipine discontinued with initiation of metoprolol. DM TYPE 2 Fairly well controlled. Hemoglobin A1c 7.7. Hold oral agents during hospital stay. Lantus/NovoLog per protocol. VTE PROPHYLAXIS / HISTORY DVT Continue warfarin. Receiving enoxaparin until INR therapeutic. DISPOSITION Expected discharge to home. Family Medicine follow-up with Dr. Verito Austin. . Current Inpatient Medications: Current Inpatient Medications Medications (Trade) Dose Ordered Sig/Navjot Route Start Time Stop Time Status Last Admin Dose Admin Ioversol (Optiray 320) 100 ml UD PRN IV 06/20/17 20:30 06/24/17 20:29 Acetaminophen (Tylenol Tab) 650 mg Q4H PRN PO 06/21/17 00:15 07/21/17 00:14 06/21/17 12:01 650 MG Nitroglycerin (Nitrostat Tab) 0.4 mg UD PRN SL 06/21/17 00:15 07/21/17 00:14 Insulin Aspart (novoLOG ASPART) SLIDING SCALE If C... ACHS SC 06/21/17 06:30 07/21/17 06:59 06/22/17 12:27 5 UNITS Glucose (Glucose 40% Gel) 15-30 GRAMS 15 GRAMS... UD PRN PO 06/21/17 00:15 07/21/17 00:14 Glucose (Glucose Chew Tab) 4-8 Tablets 4 Tabl... UD PRN PO 06/21/17 00:15 07/21/17 00:14 Dextrose (Dextrose 50% 50ML Syringe) 25-50ML 25ML FOR ... UD PRN IV 06/21/17 00:15 07/21/17 00:14 Glucagon (Glucagon Inj) 1 mg UD PRN SQ 06/21/17 00:15 07/21/17 00:14 Carbohydrates (Carbohydrates For Hypoglycemia) 15-30 GRAMS 15 grams if BSG 54-69... UD PRN PO 06/21/17 00:15 07/21/17 00:14 Prochlorperazine Edisylate 5 mg/ Syringe 5 ml @ 5 mls/min Q6H PRN IV 06/21/17 00:15 07/21/17 00:14 Tramadol HCl (Ultram Tab) not relieved by tylenol @ Q6H PRN PO 06/21/17 00:15 07/21/17 00:14 Escitalopram Oxalate (Lexapro Tab) 10 mg DAILY PO 06/21/17 09:00 07/21/17 08:59 06/22/17 08:59 10 MG Pravastatin Sodium (Pravachol Tab) 20 mg HS PO 06/21/17 21:00 07/21/17 20:59 06/21/17 22:38 20 MG Morphine Sulfate (MoRPHine SULFATE INJ) 4 mg Q3H PRN IV 06/21/17 00:15 07/05/17 00:14 Warfarin Sodium (Coumadin Tab) 5 mg DAILY@16 PO 06/21/17 16:00 07/21/17 15:59 06/21/17 16:28 5 MG Cefepime HCl (Consult) 1 ea DAILY PRN N/A 06/21/17 09:00 07/21/17 08:59 Cefepime HCl 2000 mg/Syringe 20 ml @ 5 mls/min Q12H IV 06/21/17 04:00 07/01/17 03:59 06/22/17 04:16 5 MLS/MIN Enoxaparin Sodium (Lovenox Inj) 141 mg Q12H SQ 06/21/17 07:30 07/21/17 07:29 06/22/17 08:59 141 MG Insulin Glargine (Lantus Solostar Pen) 50 units QAM SC 06/22/17 09:00 07/22/17 08:59 06/22/17 09:08 50 UNITS Doxycycline Hyclate 100 mg/ Dextrose 110 ml @ 50 mls/hr Q12H IV 06/21/17 20:00 07/01/17 19:59 06/22/17 08:59 50 MLS/HR Metoprolol Succinate (Toprol Xl Tab) 12.5 mg QAM PO 06/23/17 09:00 07/23/17 08:59 Lisinopril (Zestril Tab) 20 mg DAILY@1200 PO 06/22/17 12:00 07/22/17 11:59 06/22/17 12:24 20 MG
[2017-06-22] MEDS: WARFARIN SOD 5 MG TAB PO SCH (15:57)
[2017-06-22 19:01] VITALS: BP 139/78; PULSE 73; TEMP 37; O2SAT 96
--- NOTE | 2017-06-22 20:55 | CARDIOLOGY CONSULTATION ---
DATE OF CONSULTATION: 06/22/2017 CONSULTATION REQUESTED BY: Fran Blanco MD. REASON FOR CONSULTATION: Nonsustained paroxysmal supraventricular tachycardia. HISTORY OF PRESENT ILLNESS: Mr. Villagomez is a very pleasant 52-year-old gentleman who presented to [facility] on 06/20/2017 with a complaint of leg swelling and toe blister. He states he was not feeling well for several days, feeling feverish, having some myalgias and some nausea. At one point when he was retching, he had some shooting pain down both arms, but he notes that this is not unusual given his chronic shoulder problems. He was admitted to the hospital and started on appropriate antibiotics for possible sepsis, and while on telemetry, occurring at 3:43 a.m. on 06/22/2017, he had a nonsustained run of supraventricular tachycardia while sleeping. The patient denies experiencing any palpitations and states he is feeling better since admission. Upon further questioning, the patient admits that he does snore a lot at night. He remarks that it is so bad that his friends make him sleep in another [place]. Otherwise, he does feel tired throughout the day and notes that he will fall asleep if he sits down for a few minutes. He did have a sleep study several years ago; however, he never followed up with the results. PAST SURGICAL HISTORY: Orthopedic surgeries. PAST MEDICAL HISTORY: 1. History of DVT, on chronic Coumadin therapy. 2. Diabetes. 3. Hypertension. 4. Obesity. 5. Chronic thrombocytopenia. FAMILY HISTORY: Remarkable for father who developed coronary artery disease in his 60s. Denies any premature coronary artery disease or sudden cardiac . ALLERGIES: No known drug allergies. REVIEW OF SYSTEMS: As per HPI. All other review of systems reviewed and negative at this time. OUTPATIENT MEDICATIONS: 1. Amlodipine 5 mg daily. 2. Lisinopril 20 mg daily. 3. Pravastatin 20 mg daily. 4. Coumadin 6 to 9 mg as directed. 5. Prandin with meals. 6. Glucophage b.i.d. 7. Victoza daily. 8. Lantus daily. 9. Jardiance daily. 10. Lexapro daily. PHYSICAL EXAMINATION: VITAL SIGNS: Temperature 36.9, pulse 74, respiratory rate 12, blood pressure 120/73. GENERAL: Awake, alert, oriented x3, in no acute distress. HEENT: Normocephalic and atraumatic. Pupils equal, round, and reactive to light and accommodation. Extraocular muscles intact. Anicteric sclerae. Moist mucous membranes. NECK: No JVD, no bruit. CARDIOVASCULAR: Regular. Positive S4. Normal S1 and S2. No S3. No murmurs, rubs, or gallops. PULMONARY: Clear to auscultation bilaterally. No rales, rhonchi, or wheezing. ABDOMEN: Bowel sounds x4, soft. No rebound, guarding, tenderness. No organomegaly. EXTREMITIES: No clubbing, cyanosis, or edema. Pedal pulses +2 bilaterally. SKIN: Warm and dry. TEST RESULTS: A 2D echocardiogram performed on 06/21/2017 was read as technically difficult study, mildly dilated LV chamber size with mild concentric LVH, low normal LV systolic function with borderline global hypokinesis, EF 50%-55%, grade 1 diastolic dysfunction, poorly visualized valvular structures, without significant stenosis or regurgitation by Doppler. IMPRESSION: 1. Nonsustained paroxysmal supraventricular tachycardia. 2. High likelihood of obstructive sleep apnea. 3. Mildly reduced left ventricular systolic function, with borderline global hypokinesis. 4. Diabetes. 5. Hypertension. RECOMMENDATIONS: It is my pleasure to see Mr. Villagomez in consultation today. From the cardiac standpoint, the patient was counseled that his nonsustained supraventricular tachycardia while sleeping most likely represents underlying obstructive sleep apnea, and given his body habitus and symptoms, I do believe this is a high likelihood, so the patient will undergo a nocturnal pulse oximetry tonight and be referred to our sleep medicine colleagues as an outpatient. Otherwise, the patient was counseled that given the clinical setting, I believe his mild global hypokinesis is most likely due to metabolic derangement and stressor from infection. Given his lack of cardiac symptoms, I believe the most prudent course of action will be to complete the course of treatment for his infection and perform a stress test as an outpatient once he is medically stabilized. Otherwise, his beta dong has already been changed to metoprolol succinate, which I agree with and no further medication changes are necessary at this time.
[2017-06-22] MEDS: PRAVASTATIN SOD 20 MG TAB PO SCH (21:06)
[2017-06-23] VITALS (7 sets, daily range): BP systolic 103–127; BP diastolic 64–81; PULSE 58–71; TEMP 36.5–37.2; O2SAT 94–97
[2017-06-23] MEDS: CEFEPIME IV 2,000 MG in SYRINGE 7.5 ML IV SCH ×2 (04:29→15:45)
[2017-06-23 07:30] LABS: INR 1.3 (0.9-1.1)
[2017-06-23] MEDS: METOPROLOL SUCC 25MG EXT REL TAB PO SCH (08:13)
[2017-06-23] MEDS: ENOXAPARIN 150 MG/1ML SYR SQ SCH ×2 (08:13→19:22)
[2017-06-23] MEDS: ESCITALOPRAM OXALATE 10 MG TAB PO SCH (08:13)
[2017-06-23] MEDS: INSULIN ASPART 100 UNITS/ML 3 ML PEN SC SCH ×4 (08:18→21:01)
[2017-06-23] MEDS: INSULIN GLARGINE SOLOSTAR 100 UNITS/ML 3 ML PEN SC SCH (08:19)
[2017-06-23] MEDS: DOXYCYCLINE IV 100 MG in DEXTROSE 5% 100ML 100 ML IV SCH (08:23)
--- NOTE | 2017-06-23 10:06 | INTERNAL MEDICINE CONSULTATION ---
DATE: 06/21/2017 SUBJECTIVE: A 52-year-old male seen at bedside due to a left hallux problem. He was admitted through the ER yesterday due to stomach pain involving his chest and his arms with history of a blister rupturing on his left foot. The patient notes on Wednesday he was wearing new socks that were quite tight and thinks the blister may have been secondary to the tight socks and loose shoes. The patient has no history of previous foot problems, has had diabetes and peripheral neuropathy; however, has not been followed for any foot and ankle problems in the past. The patient notes mild discomfort over the left hallux. Denies fevers, chills, and night sweats. He notes no problems with his left foot prior to 06/19/2017. PAST SURGICAL HISTORY: Orthopedic surgeries per chart. PAST MEDICAL HISTORY: Recurrent DVT, hypertension, insulin-dependent diabetic type 2, chronic thrombocytopenia. MEDICATIONS: Per chart. ALLERGIES: No known drug allergies. FAMILY HISTORY: Diabetes, heart disease, stroke, cancer, hypertension. SOCIAL HISTORY: Denies smoking. PHYSICAL EXAMINATION: VITAL SIGNS: Stable and afebrile. LOWER EXTREMITY: Vascular: DP 1/4, PT 1/4. Good cap refill noted in digits distally on the left foot. There is sloughing of the left hallux with focal swelling to the hallux and to the leg, to the knee level. DERMATOLOGIC: Sloughing of the left hallux approximately a 2 x 3 cm area with no active drainage. Upon removal of the slough tissue, red, necrotic looking base, not penetrating the deep dermal tissue, moderate swelling and redness, erythema which is blanchable noted to the lower two-thirds of the left tibia. No active drainage is present. No malodor. NEUROLOGIC: Epicritic sensation per [place] monofilament 5.07 decreased bilateral lower extremities. MUSCULOSKELETAL: Mild tenderness on the left hallux. LABORATORY: X-ray of left foot, report shows negative. No evidence of osteo; however, there is on review of the films, a questionable density, medial aspect of the distal phalanx. Does not appear to be a periosteal reaction; however, increased density is noted over the left hallux, medial. Left venous Doppler shows partial occlusive clot in the superficial femoral and questionable clots in the posterior tibial and peroneal veins. Blood cultures are pending. Wound culture showed no organisms, no white blood cells. Blood work today is 11.35 down from 19.45, WBCs on admission with a shift to left with increased band cells noted. ESR is 1, hemoglobin A1c on 06/20/2017 was 7.7. IMPRESSION: 1. Cellulitis, left lower extremity ulceration, left hallux, grade 1. 2. Insulin-dependent diabetes mellitus with peripheral neuropathy, history of recurrent deep venous thrombosis and popliteal cyst per venous Doppler. TREATMENT: 1. Debridement of left hallux sloughing and ulcerative area to the level of subcutaneous tissue, dressed with Adaptic and dry sterile dressing. 2. ID consult is pending. Continue empiric antibiotics for now. Deferred further wound cultures. Previous one was negative and there is no active drainage. We will continue to monitor the patient. There is a questionable lucency noted medially in the left hallux film, not noted on the radiological report; can consider MRI if cellulitis fails to improve due to the high white blood count. Interesting enough, the ESR is only 1 on the chart. Questionable underlying leukocytosis clinically overall improved per patient and per the chart as well as white blood count. We will continue to follow the patient. Thank you for this consult.
--- NOTE | 2017-06-23 10:08 | PROGRESS NOTE ---
DICTATED BY: Martine Blood D.P.M. DATE: 06/22/17 SUBJECTIVE: A 52-year-old male seen at bedside for followup. Notes overall mild amount of pain in his foot. Denies fevers, chills or night sweats. He notes some chest discomfort over the evening. PHYSICAL EXAMINATION: VITAL SIGNS: She is afebrile. LOWER EXTREMITY: Vasculature: DP and PT palpable left foot. Swelling improved left leg. DERM: Redness improved left calf; however, the distal one-third of the leg still appears erythematous, overall improved from yesterday's visit. Distal aspect of the left hallux shows a central area of necrotic eschar. Good cap refill noted to the digit. Mild erythema distal hallux. No open draining wound deeper than the subcutaneous tissue. No tracking. No malodor noted. NEUROLOGIC: Epicritic sensation decreased. MUSCULOSKELETAL: Pain on palpation left calf. IMPRESSION: 1. Cellulitis, left lower extremity, improved. 2. Sepsis, rule out sepsis. Blood culture still pending. 3. Salgado grade 1 ulceration distal left hallux secondary to blister formation. 4. Insulin-dependent diabetes mellitus type 2 with history of poor control with peripheral neuropathy. TREATMENT RECOMMENDATIONS: Continue local wound care. Continue empiric antibiotics. We will follow while an inpatient.
--- NOTE | 2017-06-23 10:55 | Progress Note ---
Progress Note Date of Service June 23, 2017. Progress Note ID Consult Dictated #[id number] A/P: 1. Diabetic foot infection -Continue cefepime, await final cultures -Continue local wound care -thank you
[2017-06-23] MEDS: LISINOPRIL 20 MG TAB PO SCH (12:10)
--- NOTE | 2017-06-23 13:04 | INFECT. DISEASE CONSULTATION ---
DATE OF CONSULTATION: 06/21/2017 HISTORY OF PRESENT ILLNESS: This is a 52-year-old gentleman who was admitted to the hospital secondary to a blister on his left great toe. He states that he has had intermittent lesions on this area, but has never had any blistering or opening. He did have x-rays in the ER which were negative for osteomyelitis. His sed rate is 1. He was placed empirically on cefepime and intravenous doxycycline. He has been afebrile since admission to the hospital. His initial leukocytosis was 19,000. This has improved to 5. A wound culture was obtained on 06/21/2017 is growing coagulase-negative staph and Gram negative rods. Blood cultures are negative. He denies any pain in the area. On my examination, he states he is anxious to be discharged to home. He denies any drainage or bleeding. He denies any fevers or chills. He has no chest pain, cough, shortness of breath, nausea, vomiting, or diarrhea. His remaining review of systems is unremarkable. MEDICAL HISTORY: DVT, on Coumadin, hypertension, type 2 diabetes with insulin, and thrombocytopenia. SURGICAL HISTORY: Includes orthopedic procedures. FAMILY HISTORY: Noncontributory. ALLERGIES: He has no known drug allergies. MEDICATIONS: Topral-XL, lisinopril, Lantus, Pravachol, doxycycline, Coumadin, Lexapro, Lovenox, cefepime, Tylenol, tramadol, morphine. PHYSICAL EXAMINATION: VITAL SIGNS: He is afebrile, pulse 65, respiratory rate 16, blood pressure 115/73, oxygen saturation is 97% on room air. GENERAL: He is awake, alert, and oriented x3. He is in no acute distress. HEENT: Mucous membranes are moist. Extraocular muscles are intact. HEART: Regular. LUNGS: Clear. ABDOMEN: Soft. EXTREMITIES: There is no edema. Examination of the left foot reveals a superficial ulceration. There was some dried blood on the dressing. This was changed on my examination. There is no surrounding erythema, tenderness, or induration. There is no purulent drainage. LABORATORY STUDIES: CBC yesterday, white blood cell count 5.6, hemoglobin 14.8, platelets 95. Sed rate was 1 on admission. Chemistry panel on 06/22/2017, sodium 138, potassium 4.4, chloride 104, bicarbonate 30, BUN 16, creatinine 1.0, glucose 156. LFTs are within normal limits. The UA was negative in the ER. Flu swab was negative. Hep C antibody is negative. Blood cultures from 06/20/2017, there are no growth to date x2 sets. Superficial culture from 06/21/2017 is growing Gram negative rods. Imaging is as above. ASSESSMENT AND PLAN: Left toe ulceration with cellulitis. He will be maintained on cefepime. His doxycycline can be discontinued from an infectious diseases standpoint. Further antibiotic suggestions will be given based on final culture results.
[2017-06-23] MEDS: WARFARIN SOD 5 MG TAB PO SCH (15:44)
[2017-06-23] MEDS: DOXYCYCLINE HYCLATE 100 MG CAP PO SCH (20:57)
[2017-06-23] MEDS: PRAVASTATIN SOD 20 MG TAB PO SCH (20:57)
--- NOTE | 2017-06-23 22:27 | Progress Note ---
Medicine Progress Note Date & Time of Visit: June 23, 2017 at 13:50 . Subjective CC: Follow-up visit for cellulitis and other problems.. HPI: Still has persistent discomfort LLE. No fever. No further ventricular tachycardia. ROS: General- no fever, no chills Resp- no cough; no shortness of breath Cardiac- no chest pain GI- no nausea, no vomiting, no diarrhea, no constipation - no dysuria, no difficulty voiding . Objective Last 8 Hrs Date Time Temp Pulse Resp B/P (MAP) Pulse Ox O2 Delivery O2 Flow Rate FiO2 06/23/17 20:13 36.9 71 18 119/76 (90) 95 Room Air 06/23/17 20:00 Room Air 06/23/17 16:00 Room Air 06/23/17 15:44 36.7 68 16 124/75 (91) 96 Physical Exam: General-lying in bed, no distress Lungs- clear to auscultation; no respiratory distress Cardiovascular- RRR; no murmur or gallop appreciated ; no JVD; trace pretibial edema Abdomen- + bowel sounds, soft, nontender Extremities- no cyanosis; no calf tenderness; ulceration left great toe; moderate erythema left lower extremity below the knee Neuro- alert, oriented Skin- warm & dry . Laboratory Results: Last 24 Hours Test 06/23/17 07:09 06/23/17 07:33 06/23/17 11:35 06/23/17 16:38 Prothrombin Time 14.0 SECONDS Prothromb Time International Ratio 1.3 Bedside Glucose 182 mg/dl 221 mg/dl 164 mg/dl Test 06/23/17 20:22 Bedside Glucose 185 mg/dl Assessment & Plan SEPSIS / FOOT ULCER / CELLULITIS LLE Met criteria for sepsis at time of admission per Sepsis-1 definition and current CMS guidelines. Source = left foot ulcer + cellulitis left lower extremity. Serum lactate 2.7, repeat 1.5. Hemodynamically stable. Blood cultures obtained and placed on broad-spectrum antibiotic coverage, initially with piperacillin/tazobactam and vancomycin. Now afebrile. Cultures negative. Podiatry consulted; debridement left great toe ulcer performed. Currently receiving IV doxycycline and cefepime. ID consulted. NONSUSTAINED VENTRICULAR TACHYCARDIA Occurred during sleep 06/22. Potassium and magnesium normal. Echocardiogram 06/21 demonstrated mild global hypokinesis with LVEF 50-55%. Started on metoprolol. Cardiology consulted. Consider sleep apnea. No significant hypoxia during nocturnal pulse oximetry last night. Eventual sleep study if not recently performed. Continue cardiac monitoring. HYPERTENSION Continue lisinopril. Metoprolol initiated for ventricular tachycardia and hypertension. Amlodipine discontinued with initiation of metoprolol. DM TYPE 2 Fairly well controlled. Hemoglobin A1c 7.7. Hold oral agents during hospital stay. Fasting blood sugar today = 182. Lantus/NovoLog per protocol. VTE PROPHYLAXIS / HISTORY DVT Continue warfarin. Receiving enoxaparin until INR therapeutic. DISPOSITION Expected discharge to home. Family Medicine follow-up with Dr. Vreito Austin. . Current Inpatient Medications: Current Inpatient Medications Medications (Trade) Dose Ordered Sig/Navjot Route Start Time Stop Time Status Last Admin Dose Admin Ioversol (Optiray 320) 100 ml UD PRN IV 06/20/17 20:30 06/24/17 20:29 Acetaminophen (Tylenol Tab) 650 mg Q4H PRN PO 06/21/17 00:15 07/21/17 00:14 06/21/17 12:01 650 MG Nitroglycerin (Nitrostat Tab) 0.4 mg UD PRN SL 06/21/17 00:15 07/21/17 00:14 Insulin Aspart (novoLOG ASPART) SLIDING SCALE If C... ACHS SC 06/21/17 06:30 07/21/17 06:59 06/23/17 21:01 2 UNITS Glucose (Glucose 40% Gel) 15-30 GRAMS 15 GRAMS... UD PRN PO 06/21/17 00:15 07/21/17 00:14 Glucose (Glucose Chew Tab) 4-8 Tablets 4 Tabl... UD PRN PO 06/21/17 00:15 07/21/17 00:14 Dextrose (Dextrose 50% 50ML Syringe) 25-50ML 25ML FOR ... UD PRN IV 06/21/17 00:15 07/21/17 00:14 Glucagon (Glucagon Inj) 1 mg UD PRN SQ 06/21/17 00:15 07/21/17 00:14 Carbohydrates (Carbohydrates For Hypoglycemia) 15-30 GRAMS 15 grams if BSG 54-69... UD PRN PO 06/21/17 00:15 07/21/17 00:14 Prochlorperazine Edisylate 5 mg/ Syringe 5 ml @ 5 mls/min Q6H PRN IV 06/21/17 00:15 07/21/17 00:14 Tramadol HCl (Ultram Tab) not relieved by tylenol @ Q6H PRN PO 06/21/17 00:15 07/21/17 00:14 Escitalopram Oxalate (Lexapro Tab) 10 mg DAILY PO 06/21/17 09:00 07/21/17 08:59 06/23/17 08:13 10 MG Pravastatin Sodium (Pravachol Tab) 20 mg HS PO 06/21/17 21:00 07/21/17 20:59 06/23/17 20:57 20 MG Morphine Sulfate (MoRPHine SULFATE INJ) 4 mg Q3H PRN IV 06/21/17 00:15 07/05/17 00:14 Warfarin Sodium (Coumadin Tab) 5 mg DAILY@16 PO 06/21/17 16:00 07/21/17 15:59 06/23/17 15:44 5 MG Cefepime HCl (Consult) 1 ea DAILY PRN N/A 06/21/17 09:00 07/21/17 08:59 Cefepime HCl 2000 mg/Syringe 20 ml @ 5 mls/min Q12H IV 06/21/17 04:00 07/01/17 03:59 06/23/17 15:45 5 MLS/MIN Enoxaparin Sodium (Lovenox Inj) 141 mg Q12H SQ 06/21/17 07:30 07/21/17 07:29 06/23/17 19:22 141 MG Insulin Glargine (Lantus Solostar Pen) 50 units QAM SC 06/22/17 09:00 07/22/17 08:59 06/23/17 08:19 50 UNITS Metoprolol Succinate (Toprol Xl Tab) 12.5 mg QAM PO 06/23/17 09:00 07/23/17 08:59 06/23/17 08:13 12.5 MG Lisinopril (Zestril Tab) 20 mg DAILY@1200 PO 06/22/17 12:00 07/22/17 11:59 06/23/17 12:10 20 MG Doxycycline Hyclate (Vibramycin Cap) 100 mg BID PO 06/23/17 21:00 07/01/17 20:59 06/23/17 20:57 100 MG
[2017-06-24 04:00] VITALS: BP 116/75; PULSE 66; TEMP 36.7; O2SAT 97
[2017-06-24] MEDS: CEFEPIME IV 2,000 MG in SYRINGE 7.5 ML IV SCH ×2 (04:15→15:44)
[2017-06-24 07:31] LABS: BASO % 0.4 %; BASO ABS # 0.02 K/uL (0-0.2); EOS % 4.1 %; HEMATOCRIT 43.9 % (42-52); HEMOGLOBIN 15.2 g/dL (14.0-18.0); IG# 0.02 K/uL (0.00-0.02); LYMPH % 30.2 %; LYMPH ABS # 1.49 K/uL (1.2-3.4); MEAN CELL VOLUME 94.2 fL (80-100); MEAN CORPUSCULAR HEMOGLOBIN 32.6 pg (25-34); MEAN CORPUSCULAR HGB CONC 34.6 g/dl (32-36); MEAN PLATELET VOLUME 11.8 fL (7.4-10.4); MONO % 10.3 %; MONO ABS # 0.51 K/uL (0.11-0.59); NEUT % 54.6 %; NEUT ABS # 2.69 K/uL (1.4-6.5); PLATELET COUNT 111 K/uL (130-400); RED CELL DISTRIBUTION WIDTH CV 13.3 % (11.5-14.5); RED CELL DISTRIBUTION WIDTH SD 45.9 fL (36.4-46.3); WHITE BLOOD COUNT 4.93 K/uL (4.8-10.8)
[2017-06-24 07:32] VITALS: BP 126/76; PULSE 57; TEMP 36.7; O2SAT 96
[2017-06-24 07:37] LABS: INR 1.2 (0.9-1.1)
[2017-06-24] MEDS: DOXYCYCLINE HYCLATE 100 MG CAP PO SCH ×2 (08:11→21:03)
[2017-06-24] MEDS: METOPROLOL SUCC 25MG EXT REL TAB PO SCH (08:12)
[2017-06-24] MEDS: ESCITALOPRAM OXALATE 10 MG TAB PO SCH (08:12)
[2017-06-24] MEDS: LISINOPRIL 20 MG TAB PO SCH (08:12)
[2017-06-24] MEDS: ENOXAPARIN 150 MG/1ML SYR SQ SCH ×2 (08:13→19:25)
[2017-06-24] MEDS ORDERED: WARFARIN SOD 5 MG TAB PO ONE (08:15)
[2017-06-24] MEDS: INSULIN ASPART 100 UNITS/ML 3 ML PEN SC SCH ×4 (08:19→21:07)
[2017-06-24] MEDS: INSULIN GLARGINE SOLOSTAR 100 UNITS/ML 3 ML PEN SC SCH (08:20)
--- NOTE | 2017-06-24 10:55 | Progress Note ---
Subjective Date of Service: June 24, 2017. Subjective Patient remains on empiric antibiotics. He is tolerating these well. His doxycycline was changed to oral. His wound culture is growing coag-negative staph and a gram-negative sveta which is yet to be identified. His cultures remain negative. He is afebrile overnight. His white blood cell count today is 4.9. His inflammatory markers are unremarkable. He continues with local wound care. Problem List Medical Problems: (1) Cellulitis of left lower extremity Status: Acute (2) Hyperglycemia Status: Acute (3) Sepsis Status: Acute (4) Subtherapeutic international normalized ratio (INR) Status: Acute Objective Vital Signs Date Time Temp Pulse Resp B/P (MAP) Pulse Ox O2 Delivery O2 Flow Rate FiO2 06/24/17 08:00 Room Air 06/24/17 07:32 36.7 57 16 126/76 (93) 96 Room Air 06/24/17 04:00 Room Air 06/24/17 04:00 36.7 66 16 116/75 (89) 97 Room Air 06/24/17 00:00 Room Air 06/23/17 23:49 36.9 69 18 103/64 (77) 94 Room Air 06/23/17 20:13 36.9 71 18 119/76 (90) 95 Room Air 06/23/17 20:00 Room Air 06/23/17 16:00 Room Air 06/23/17 15:44 36.7 68 16 124/75 (91) 96 06/23/17 12:00 Room Air 06/23/17 11:20 36.7 65 16 127/81 (96) 95 Laboratory Results Item Value Date Time Gram Stain - Final Resulted 06/21/17 0411 Drainage - Surface Toe Left 1 Blood Culture - Preliminary Resulted 06/20/172043 Blood NO GROWTH TO DATE. Blood Culture - Preliminary Resulted 06/20/172019 Blood NO GROWTH TO DATE. Last 24 Hours Test 06/23/17 11:35 06/23/17 16:38 06/23/17 20:22 06/24/17 07:17 Bedside Glucose 221 mg/dl 164 mg/dl 185 mg/dl White Blood Count 4.93 K/uL Red Blood Count 4.66 M/uL Hemoglobin 15.2 g/dL Hematocrit 43.9 % Mean Corpuscular Volume 94.2 fL Mean Corpuscular Hemoglobin 32.6 pg Mean Corpuscular Hemoglobin Concent 34.6 g/dl Platelet Count 111 K/uL Mean Platelet Volume 11.8 fL Neutrophils (%) (Auto) 54.6 % Lymphocytes (%) (Auto) 30.2 % Monocytes (%) (Auto) 10.3 % Eosinophils (%) (Auto) 4.1 % Basophils (%) (Auto) 0.4 % Neutrophils # (Auto) 2.69 K/uL Lymphocytes # (Auto) 1.49 K/uL Monocytes # (Auto) 0.51 K/uL Eosinophils # (Auto) 0.20 K/uL Basophils # (Auto) 0.02 K/uL RDW Standard Deviation 45.9 fL RDW Coefficient of Variation 13.3 % Immature Granulocyte % (Auto) 0.4 % Immature Granulocyte # (Auto) 0.02 K/uL Prothrombin Time 12.3 SECONDS Prothromb Time International Ratio 1.2 Test 06/24/17 07:48 Bedside Glucose 195 mg/dl Assessment and Plan (1) Diabetic foot infection Assessment & Plan: Patient will continue on empiric antibiotics pending final identification of gram-negative sveta from his wound cultures. At that time additional recommendations will be made.
[2017-06-24 12:10] VITALS: BP 130/84; PULSE 63; TEMP 36.5; O2SAT 98
[2017-06-24 15:41] VITALS: BP 140/84; PULSE 67; TEMP 37.1; O2SAT 96
[2017-06-24] MEDS: WARFARIN SOD 5 MG TAB PO SCH (15:43)
[2017-06-24 18:55] VITALS: BP 126/75; PULSE 71; TEMP 37; O2SAT 97
[2017-06-24] MEDS: PRAVASTATIN SOD 20 MG TAB PO SCH (21:03)
[2017-06-24 22:48] VITALS: BP 135/90; PULSE 68; TEMP 36.5; O2SAT 96
--- NOTE | 2017-06-24 23:41 | Progress Note ---
Medicine Progress Note Date & Time of Visit: June 24, 2017 at 15:05 . Subjective CC: Follow-up visit for cellulitis and other problems.. HPI: Less discomfort LLE. No fever. Nursing staff noticed discoloration of the tip of the left great toe today. ROS: General- no fever, no chills Resp- no cough; no shortness of breath Cardiac- no chest pain or palpitations GI- no nausea, no vomiting, no diarrhea, no constipation - no dysuria, no difficulty voiding . Objective Last 8 Hrs Date Time Temp Pulse Resp B/P (MAP) Pulse Ox O2 Delivery O2 Flow Rate FiO2 06/24/17 22:48 36.5 68 18 135/90 (105) 96 Room Air 06/24/17 20:00 Room Air 06/24/17 18:55 37.0 71 20 126/75 (92) 97 Room Air 06/24/17 16:00 Room Air Physical Exam: General-lying in bed, no distress Lungs- clear to auscultation; no respiratory distress Cardiovascular- RRR; no murmur or gallop appreciated ; no JVD; trace pretibial edema Abdomen- + bowel sounds, soft, nontender Extremities- no cyanosis; no calf tenderness; less erythema left lower extremity below the knee; left pedal pulses intact, capillary refill toes less than 2 seconds; superficial ulceration distal aspect of left great toe with ~ 1 cm darkened eschar Neuro- alert, oriented Skin- warm & dry . Laboratory Results: Last 24 Hours Test 06/24/17 07:17 06/24/17 07:48 06/24/17 11:56 06/24/17 16:39 White Blood Count 4.93 K/uL Red Blood Count 4.66 M/uL Hemoglobin 15.2 g/dL Hematocrit 43.9 % Mean Corpuscular Volume 94.2 fL Mean Corpuscular Hemoglobin 32.6 pg Mean Corpuscular Hemoglobin Concent 34.6 g/dl Platelet Count 111 K/uL Mean Platelet Volume 11.8 fL Neutrophils (%) (Auto) 54.6 % Lymphocytes (%) (Auto) 30.2 % Monocytes (%) (Auto) 10.3 % Eosinophils (%) (Auto) 4.1 % Basophils (%) (Auto) 0.4 % Neutrophils # (Auto) 2.69 K/uL Lymphocytes # (Auto) 1.49 K/uL Monocytes # (Auto) 0.51 K/uL Eosinophils # (Auto) 0.20 K/uL Basophils # (Auto) 0.02 K/uL RDW Standard Deviation 45.9 fL RDW Coefficient of Variation 13.3 % Immature Granulocyte % (Auto) 0.4 % Immature Granulocyte # (Auto) 0.02 K/uL Prothrombin Time 12.3 SECONDS Prothromb Time International Ratio 1.2 Bedside Glucose 195 mg/dl 221 mg/dl 182 mg/dl Test 06/24/17 20:54 Bedside Glucose 298 mg/dl Assessment & Plan SEPSIS / FOOT ULCER / CELLULITIS LLE Met criteria for sepsis at time of admission per Sepsis-1 definition and current CMS guidelines. Source = left foot ulcer + cellulitis left lower extremity. Serum lactate 2.7, repeat 1.5. Hemodynamically stable. Blood cultures obtained and placed on broad-spectrum antibiotic coverage, initially with piperacillin/tazobactam and vancomycin. Now afebrile. Cultures negative. Podiatry consulted; debridement left great toe ulcer performed. Examination left great toe today as noted above. Continue local care; will need wound follow-up with Podiatry and/or [facility]. ID consulted. Wound culture from 06/21 growing coag negative Staphylococcus and gram-negative bacilli. Identification of gram-negative bacilli still pending. Currently receiving oral doxycycline and IV cefepime. Continue current antibiotics pending final identification of gram-negative rods. NONSUSTAINED VENTRICULAR TACHYCARDIA ~ 35 run of nonsustained ventricular tachycardia occurred during sleep 06/22 with subsequent shorter runs. Potassium and magnesium normal. Echocardiogram 06/21 demonstrated mild global hypokinesis with LVEF 50-55%. Started on metoprolol. Cardiology consulted. Consider sleep apnea. No significant hypoxia during nocturnal pulse oximetry last night. Eventual sleep study if not recently performed. Continue cardiac monitoring. HYPERTENSION Continue lisinopril. Metoprolol initiated for ventricular tachycardia and hypertension. Amlodipine discontinued with initiation of metoprolol. DM TYPE 2 Fairly well controlled. Hemoglobin A1c 7.7. Hold oral agents during hospital stay. Fasting blood sugar today = 195. Lantus/NovoLog per protocol. VTE PROPHYLAXIS / HISTORY DVT Prior history of DVT. Venous duplex during this hospital stay demonstrated chronic appearing thrombus in the superficial femoral, popliteal, and calf veins. INRs have been low, titrating warfarin. Receiving enoxaparin until INR therapeutic. DISPOSITION Expected discharge to home. Family Medicine follow-up with Dr. Verito Austin. . Current Inpatient Medications: Current Inpatient Medications Medications (Trade) Dose Ordered Sig/Navjot Route Start Time Stop Time Status Last Admin Dose Admin Acetaminophen (Tylenol Tab) 650 mg Q4H PRN PO 06/21/17 00:15 07/21/17 00:14 06/21/17 12:01 650 MG Nitroglycerin (Nitrostat Tab) 0.4 mg UD PRN SL 06/21/17 00:15 07/21/17 00:14 Insulin Aspart (novoLOG ASPART) SLIDING SCALE If C... ACHS SC 06/21/17 06:30 07/21/17 06:59 06/24/17 21:07 8 UNITS Glucose (Glucose 40% Gel) 15-30 GRAMS 15 GRAMS... UD PRN PO 06/21/17 00:15 07/21/17 00:14 Glucose (Glucose Chew Tab) 4-8 Tablets 4 Tabl... UD PRN PO 06/21/17 00:15 07/21/17 00:14 Dextrose (Dextrose 50% 50ML Syringe) 25-50ML 25ML FOR ... UD PRN IV 06/21/17 00:15 07/21/17 00:14 Glucagon (Glucagon Inj) 1 mg UD PRN SQ 06/21/17 00:15 07/21/17 00:14 Carbohydrates (Carbohydrates For Hypoglycemia) 15-30 GRAMS 15 grams if BSG 54-69... UD PRN PO 06/21/17 00:15 07/21/17 00:14 Prochlorperazine Edisylate 5 mg/ Syringe 5 ml @ 5 mls/min Q6H PRN IV 06/21/17 00:15 07/21/17 00:14 Tramadol HCl (Ultram Tab) not relieved by tylenol @ Q6H PRN PO 06/21/17 00:15 07/21/17 00:14 Escitalopram Oxalate (Lexapro Tab) 10 mg DAILY PO 06/21/17 09:00 07/21/17 08:59 06/24/17 08:12 10 MG Pravastatin Sodium (Pravachol Tab) 20 mg HS PO 06/21/17 21:00 07/21/17 20:59 06/24/17 21:03 20 MG Morphine Sulfate (MoRPHine SULFATE INJ) 4 mg Q3H PRN IV 06/21/17 00:15 07/05/17 00:14 Warfarin Sodium (Coumadin Tab) 5 mg DAILY@16 PO 06/21/17 16:00 07/21/17 15:59 06/24/17 15:43 5 MG Cefepime HCl (Consult) 1 ea DAILY PRN N/A 06/21/17 09:00 07/21/17 08:59 Cefepime HCl 2000 mg/Syringe 20 ml @ 5 mls/min Q12H IV 06/21/17 04:00 07/01/17 03:59 06/24/17 15:44 5 MLS/MIN Enoxaparin Sodium (Lovenox Inj) 141 mg Q12H SQ 06/21/17 07:30 07/21/17 07:29 06/24/17 19:25 141 MG Metoprolol Succinate (Toprol Xl Tab) 12.5 mg QAM PO 06/23/17 09:00 07/23/17 08:59 06/24/17 08:12 12.5 MG Lisinopril (Zestril Tab) 20 mg DAILY@1200 PO 06/22/17 12:00 07/22/17 11:59 06/24/17 08:12 20 MG Doxycycline Hyclate (Vibramycin Cap) 100 mg BID PO 06/23/17 21:00 07/01/17 20:59 06/24/17 21:03 100 MG Insulin Glargine (Lantus Solostar Pen) 60 units QAM SC 06/24/17 09:00 07/22/17 08:59 06/24/17 08:20 60 UNITS
[2017-06-25] VITALS (7 sets, daily range): BP systolic 117–137; BP diastolic 64–80; PULSE 62–70; TEMP 36.7–36.9; O2SAT 95–97
[2017-06-25] MEDS: CEFEPIME IV 2,000 MG in SYRINGE 7.5 ML IV SCH ×2 (03:54→15:18)
[2017-06-25 06:09] LABS: HEMATOCRIT 44.3 % (42-52); HEMOGLOBIN 15.7 g/dL (14.0-18.0); MEAN CELL VOLUME 94.1 fL (80-100); MEAN CORPUSCULAR HEMOGLOBIN 33.3 pg (25-34); MEAN CORPUSCULAR HGB CONC 35.4 g/dl (32-36); MEAN PLATELET VOLUME 11.7 fL (7.4-10.4); PLATELET COUNT 118 K/uL (130-400); RED CELL DISTRIBUTION WIDTH CV 12.9 % (11.5-14.5); RED CELL DISTRIBUTION WIDTH SD 44.8 fL (36.4-46.3); WHITE BLOOD COUNT 5.67 K/uL (4.8-10.8)
[2017-06-25 06:16] LABS: INR 1.2 (0.9-1.1)
[2017-06-25 06:49] LABS: CALCIUM 8.5 mg/dl (8.5-10.1); CREATININE 0.95 mg/dl (0.60-1.40); POTASSIUM 4.2 mmol/L (3.5-5.1)
--- NOTE | 2017-06-25 07:59 | ORTHOPEDICS PROGRESS NOTE ---
DATE: 06/24/2017 HISTORY OF PRESENT ILLNESS: A 52-year-old male seen at bedside for followup of cellulitis. He notes redness and tenderness is greatly resolved. He had concerns regarding shoe gear and returning to work. PHYSICAL EXAMINATION: VITAL SIGNS: Afebrile. LOWER EXTREMITY: Edema and erythema have resolved to the left lower extremity. Digital pulses on the left foot. DP 1/4, PT 1/4. There is cap refill surrounding the black eschar distally and the left hallux feels warm. DERMATOLOGIC: There is an area of black necrosis/eschar distally over the previous blister site. This does not appear to be ischemic, but more trauma related. Tissue around the area appears to be perfused well. Erythema is all but nearly resolved. There is no active drainage. NEUROLOGIC: Epicritic sensation diminished. MUSCULOSKELETAL: Minimal pain noted over the left hallux. LABORATORY DATA: Culture results, blood cultures are pending. Wound cultures, gram negative bacilli, staph aureus. IMPRESSION: 1. Cellulitis, left lower extremity. 2. Ulceration, distal left hallux, preulcerative area with history of blister formation, questionable etiology. 3. 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 TREATMENT RECOMMENDATIONS: From a podiatry standpoint, patient could be discharged home on oral antibiotics. Agree with ID. Consider adding Cipro, was concerned about gram negative coverage, 500 mg b.i.d. Long discussion with the patient regarding the etiology to the blister formation, cold injury, friction blister, and possible low probability of a tissue necrosis from a small vessel disease. At this time, it does not appear to be showing acute ischemic changes around the area of necrosis. We will consider BERTO with digital toe pressures if it fails to improve over the next few weeks. Discussed small vessel disease and possible etiologies of the discoloration at length with the patient. To continue oral antibiotics for 7-10 days upon discharge. Will follow up with the patient on Wednesday and will work through shoe gear and various areas to offload the ulceration as patient is requiring shoes. Reconsult if needed.
[2017-06-25] MEDS: METOPROLOL SUCC 25MG EXT REL TAB PO SCH (08:42)
[2017-06-25] MEDS: DOXYCYCLINE HYCLATE 100 MG CAP PO SCH ×2 (08:42→20:12)
[2017-06-25] MEDS: ESCITALOPRAM OXALATE 10 MG TAB PO SCH (08:42)
[2017-06-25] MEDS: ENOXAPARIN 150 MG/1ML SYR SQ SCH ×3 (08:43→20:11)
[2017-06-25] MEDS: INSULIN ASPART 100 UNITS/ML 3 ML PEN SC SCH ×4 (08:49→20:16)
[2017-06-25] MEDS: WARFARIN SOD 10 MG TAB PO ONE ×2 (09:16→09:22)
[2017-06-25] MEDS: INSULIN GLARGINE SOLOSTAR 100 UNITS/ML 3 ML PEN SC SCH (09:23)
[2017-06-25] MEDS: LISINOPRIL 20 MG TAB PO SCH (15:11)
[2017-06-25] MEDS: PRAVASTATIN SOD 20 MG TAB PO SCH (20:11)
--- NOTE | 2017-06-25 22:44 | Progress Note ---
Medicine Progress Note Date & Time of Visit: June 25, 2017 at 18:15 . Subjective CC: Follow-up visit for toe ulcer, cellulitis and other problems.. HPI: Less discomfort LLE. No fever. No further runs of ventricular tachycardia. Hoping to be discharged soon. ROS: General- no fever, no chills Resp- no cough; no shortness of breath Cardiac- no chest pain or palpitations GI- no nausea, no vomiting, no diarrhea, no constipation - no dysuria, no difficulty voiding . Objective Last 8 Hrs Date Time Temp Pulse Resp B/P (MAP) Pulse Ox O2 Delivery O2 Flow Rate FiO2 06/25/17 20:00 Room Air 06/25/17 19:02 36.9 66 18 137/78 (97) 95 Room Air 06/25/17 16:00 Room Air 06/25/17 15:13 36.8 63 18 125/80 (95) 96 Room Air Physical Exam: General-lying in bed, no distress Lungs- clear to auscultation; no respiratory distress Cardiovascular- RRR; no murmur or gallop appreciated ; no JVD; trace pretibial edema Abdomen- + bowel sounds, soft, nontender Extremities- no cyanosis; no calf tenderness; less erythema left lower extremity below the knee; left great toe bandaged. Neuro- alert, oriented Skin- warm & dry . Laboratory Results: Last 24 Hours Test 06/25/17 05:36 06/25/17 07:37 06/25/17 11:41 06/25/17 16:27 White Blood Count 5.67 K/uL Red Blood Count 4.71 M/uL Hemoglobin 15.7 g/dL Hematocrit 44.3 % Mean Corpuscular Volume 94.1 fL Mean Corpuscular Hemoglobin 33.3 pg Mean Corpuscular Hemoglobin Concent 35.4 g/dl RDW Standard Deviation 44.8 fL RDW Coefficient of Variation 12.9 % Platelet Count 118 K/uL Mean Platelet Volume 11.7 fL Prothrombin Time 12.2 SECONDS Prothromb Time International Ratio 1.2 Sodium Level 139 mmol/L Potassium Level 4.2 mmol/L Chloride Level 105 mmol/L Carbon Dioxide Level 31 mmol/L Anion Gap 3.0 mmol/L Blood Urea Nitrogen 17 mg/dl Creatinine 0.95 mg/dl Est Creatinine Clear Calc Drug Dose 131.8 ml/min Estimated GFR () 105.5 Estimated GFR (Non- 91.0 BUN/Creatinine Ratio 17.4 Random Glucose 118 mg/dl Calcium Level 8.5 mg/dl Bedside Glucose 126 mg/dl 189 mg/dl 157 mg/dl Test 06/25/17 20:05 Bedside Glucose 201 mg/dl Assessment & Plan SEPSIS / FOOT ULCER / CELLULITIS LLE Met criteria for sepsis at time of admission per Sepsis-1 definition and current CMS guidelines. Source = left foot ulcer + cellulitis left lower extremity. Serum lactate 2.7, repeat 1.5. Hemodynamically stable. Blood cultures obtained and placed on broad-spectrum antibiotic coverage, initially with piperacillin/tazobactam and vancomycin. Now afebrile. Cultures negative. Podiatry consulted; debridement left great toe ulcer performed. Examination left great toe today as noted above. Continue local care; will need wound follow-up with Podiatry and/or Wound Care Center. ID consulted. Wound culture from 06/21 growing coag negative Staphylococcus and gram-negative bacilli. Identification of gram-negative bacilli still pending. Currently receiving oral doxycycline and IV cefepime. Continue current antibiotics pending final identification of gram-negative rods. NONSUSTAINED VENTRICULAR TACHYCARDIA ~ 35 run of nonsustained ventricular tachycardia occurred during sleep 06/22 with subsequent shorter runs. Potassium and magnesium normal. Echocardiogram 06/21 demonstrated mild global hypokinesis with LVEF 50-55%. Started on metoprolol. Cardiology consulted. Consider sleep apnea. No significant hypoxia during nocturnal pulse oximetry last night. Eventual sleep study if not recently performed. Outpatient stress testing recommended. Continue cardiac monitoring. HYPERTENSION Continue lisinopril. Metoprolol initiated for ventricular tachycardia and hypertension. Amlodipine discontinued with initiation of metoprolol. DM TYPE 2 Fairly well controlled. Hemoglobin A1c 7.7. Hold oral agents during hospital stay. Fasting blood sugar today = 126. Lantus/NovoLog per protocol. VTE PROPHYLAXIS / HISTORY DVT Prior history of DVT. Venous duplex during this hospital stay demonstrated chronic appearing thrombus in the superficial femoral, popliteal, and calf veins. INRs have been low, titrating warfarin. Receiving enoxaparin until INR therapeutic. DISPOSITION Expected discharge to home. Family Medicine follow-up with Dr. Verito Austin. . Current Inpatient Medications: Current Inpatient Medications Medications (Trade) Dose Ordered Sig/Navjot Route Start Time Stop Time Status Last Admin Dose Admin Acetaminophen (Tylenol Tab) 650 mg Q4H PRN PO 06/21/17 00:15 07/21/17 00:14 06/21/17 12:01 650 MG Nitroglycerin (Nitrostat Tab) 0.4 mg UD PRN SL 06/21/17 00:15 07/21/17 00:14 Insulin Aspart (novoLOG ASPART) SLIDING SCALE If C... ACHS SC 06/21/17 06:30 07/21/17 06:59 06/25/17 20:16 1 UNITS Glucose (Glucose 40% Gel) 15-30 GRAMS 15 GRAMS... UD PRN PO 06/21/17 00:15 07/21/17 00:14 Glucose (Glucose Chew Tab) 4-8 Tablets 4 Tabl... UD PRN PO 06/21/17 00:15 07/21/17 00:14 Dextrose (Dextrose 50% 50ML Syringe) 25-50ML 25ML FOR ... UD PRN IV 06/21/17 00:15 07/21/17 00:14 Glucagon (Glucagon Inj) 1 mg UD PRN SQ 06/21/17 00:15 07/21/17 00:14 Carbohydrates (Carbohydrates For Hypoglycemia) 15-30 GRAMS 15 grams if BSG 54-69... UD PRN PO 06/21/17 00:15 07/21/17 00:14 Prochlorperazine Edisylate 5 mg/ Syringe 5 ml @ 5 mls/min Q6H PRN IV 06/21/17 00:15 07/21/17 00:14 Tramadol HCl (Ultram Tab) not relieved by tylenol @ Q6H PRN PO 06/21/17 00:15 07/21/17 00:14 Escitalopram Oxalate (Lexapro Tab) 10 mg DAILY PO 06/21/17 09:00 07/21/17 08:59 06/25/17 08:42 10 MG Pravastatin Sodium (Pravachol Tab) 20 mg HS PO 06/21/17 21:00 07/21/17 20:59 06/25/17 20:11 20 MG Morphine Sulfate (MoRPHine SULFATE INJ) 4 mg Q3H PRN IV 06/21/17 00:15 07/05/17 00:14 Warfarin Sodium (Coumadin Tab) 5 mg DAILY@16 PO 06/21/17 16:00 07/21/17 15:59 Future Hold 06/24/17 15:43 5 MG Cefepime HCl (Consult) 1 ea DAILY PRN N/A 06/21/17 09:00 07/21/17 08:59 Cefepime HCl 2000 mg/Syringe 20 ml @ 5 mls/min Q12H IV 06/21/17 04:00 07/01/17 03:59 06/25/17 15:18 5 MLS/MIN Enoxaparin Sodium (Lovenox Inj) 141 mg Q12H SQ 06/21/17 07:30 07/21/17 07:29 06/25/17 20:11 141 MG Metoprolol Succinate (Toprol Xl Tab) 12.5 mg QAM PO 06/23/17 09:00 07/23/17 08:59 06/25/17 08:42 12.5 MG Lisinopril (Zestril Tab) 20 mg DAILY@1200 PO 06/22/17 12:00 07/22/17 11:59 06/25/17 15:11 20 MG Doxycycline Hyclate (Vibramycin Cap) 100 mg BID PO 06/23/17 21:00 07/01/17 20:59 06/25/17 20:12 100 MG Insulin Glargine (Lantus Solostar Pen) 50 units QAM SC 06/26/17 09:00 07/22/17 08:59
[2017-06-26] MEDS: CEFEPIME IV 2,000 MG in SYRINGE 7.5 ML IV SCH ×2 (03:42→17:29)
[2017-06-26 03:47] VITALS: BP 123/74; PULSE 58; TEMP 36.6; O2SAT 97
[2017-06-26 06:27] LABS: HEMATOCRIT 44.2 % (42-52); HEMOGLOBIN 15.6 g/dL (14.0-18.0); MEAN CELL VOLUME 93.4 fL (80-100); MEAN CORPUSCULAR HGB CONC 35.3 g/dl (32-36); MEAN PLATELET VOLUME 11.6 fL (7.4-10.4); PLATELET COUNT 109 K/uL (130-400); RED CELL DISTRIBUTION WIDTH SD 44.5 fL (36.4-46.3); WHITE BLOOD COUNT 5.96 K/uL (4.8-10.8)
[2017-06-26 06:33] LABS: INR 1.1 (0.9-1.1)
[2017-06-26 07:21] VITALS: BP 122/74; PULSE 62; TEMP 37; O2SAT 95
[2017-06-26] MEDS: ENOXAPARIN 150 MG/1ML SYR SQ SCH (08:24)
[2017-06-26] MEDS: ESCITALOPRAM OXALATE 10 MG TAB PO SCH (08:24)
[2017-06-26] MEDS: DOXYCYCLINE HYCLATE 100 MG CAP PO SCH (08:25)
[2017-06-26] MEDS: METOPROLOL SUCC 25MG EXT REL TAB PO SCH (08:25)
[2017-06-26] MEDS: INSULIN ASPART 100 UNITS/ML 3 ML PEN SC SCH ×3 (08:37→17:26)
[2017-06-26] MEDS ORDERED: WARFARIN SOD 5 MG TAB PO ONE (09:00)
[2017-06-26] MEDS ORDERED: INSULIN GLARGINE SOLOSTAR 100 UNITS/ML 3 ML PEN SC SCH (09:00)
[2017-06-26] MEDS: LISINOPRIL 20 MG TAB PO SCH (12:08)
[2017-06-26 12:10] VITALS: BP 123/77; PULSE 64; TEMP 36.8; O2SAT 97
[2017-06-26 14:41] VITALS: BP 146/84; PULSE 83; TEMP 37; O2SAT 97
[2017-06-26] MEDS ORDERED: WARF-246 PO (17:21)
[2017-06-26] MEDS ORDERED: DOXY-300 PO (17:27)
[2017-06-26] MEDS ORDERED: CMD5 PO (17:27)
[2017-06-26] MEDS ORDERED: CIPR-255 PO (17:27)
--- NOTE | 2017-06-26 17:36 | Discharge Instructions ---
Discharge Instructions Date of Service June 26, 2017. Admission Reason for Admission: toe ulcer and cellulitis (leg infection) . Discharge Discharge Diagnosis / Problem: toe ulcer and cellulitis (leg infection) Discharge Goals Goal(s): Decrease discomfort, Improve disease control Activity Recommendations Activity Limitations: as noted below Lifting Limitations: gradually increase as tolerated keep left leg elevated when able . . Instructions / Follow-Up Instructions / Follow-Up APPOINTMENTS: PODIATRY Dr. Blood 06/28/17 as scheduled [facility] Please call clinic on Wednesday to schedule an INR to be done that day. FAMILY MEDICINE 07/01/2017 9:40 AM Giuliana Bobby PA-C (covering for Dr. Austin) [facility] OTHER INSTRUCTIONS: Take the following antibiotics as instructed for foot and leg infection: doxycycline 100 mg twice a day ciprofloxacin (Cipro) 500 mg twice a day Avoid excessive sun exposure while taking doxycycline. Antibiotics can interact with warfarin (Coumadin). You received 15 mg of warfarin on Wednesday. Take 15 mg on Wednesday. Get your INR checked on Wednesday and await further instructions from the Anticoagulation Clinic. Avoid pressure on your toes. Discuss best shoes with Dr. Blood. Dressing changes for left big toe: cleanse gently with mild soap and water apply Adaptic cover with sterile gauze dressing You had episodes where your heart was racing (ventricular tachycardia). We started metoprolol succinate (Toprol XL) and things got better. Please ask Dr. Austin to arrange for an outpatient heart monitor as well as a stress test in the future. Please ask for a sleep study to be scheduled as well. Seek medical attention if you have: * temperature above 101 * chest pain or trouble breathing * abdominal pain, nausea, vomiting * diarrhea, dark stools or bloody stools * worsening pain, redness, swelling, drainage of toe, foot, leg * any unanswered questions or concerns Call [phone] if symptoms are severe. Call if you have any questions or problems. My cell # is [phone]. You can also reach a [facility] hospitalist on duty at [facility] 24 hours a day by calling [phone]. Please take good care of yourself. Fran Blanco . Current Hospital Diet Patient's current hospital diet: Diabetes Type 2 Diet, AHA Diet (Heart Healthy) Discharge Diet Recommended Diet: AHA Diet (Heart Healthy), Diabetes Type 2 Diet Pending Studies Studies pending at discharge: no Laboratory Results Hemoglobin A1c Test 06/20/17 20:20 Range/Units Estimated Average Glucose 174 mg/dl Hemoglobin A1c 7.7 H 4.5-5.6 % Work Instructions Return To Work: after follow-up Additional Instructions: Jeane Villagomez has been absent from work since around 06/20/17 because of illness. Return to work date to be determined after recheck in office. Medical Emergencies . Who to Call and When: Medical Emergencies: If at any time you feel your situation is an emergency, please call 911 immediately. . Non-Emergent Contact Non-Emergency issues call your: Primary Care Provider, Hospital Doctor, Specialist ([employer]) . . "Provider Documentation" section prepared by Fran Blanco. .
[2017-06-26] MEDS ORDERED: TPRSR25 PO (17:39)
[2017-06-26 18:27] VITALS: BP 146/84; PULSE 83; TEMP 37; O2SAT 97
--- NOTE | 2017-06-26 19:03 | Progress Note ---
Medicine Progress Note Date & Time of Visit: June 26, 2017 at 19:03 . Subjective CC: Follow-up visit for toe ulcer, cellulitis and other problems.. HPI: Less erythema and discomfort LLE. No fever. No further runs of ventricular tachycardia. ROS: General- no fever, no chills Resp- no cough; no shortness of breath Cardiac- no chest pain or palpitations GI- no nausea, no vomiting, no diarrhea, no constipation - no dysuria, no difficulty voiding . Objective Last 8 Hrs Date Time Temp Pulse Resp B/P (MAP) Pulse Ox O2 Delivery O2 Flow Rate FiO2 06/26/17 18:27 37.0 83 20 97 Room Air 06/26/17 16:00 Room Air 06/26/17 14:41 37.0 83 20 146/84 (104) 97 Room Air 06/26/17 12:10 36.8 64 22 123/77 (92) 97 Room Air 06/26/17 12:00 Room Air Physical Exam: General-lying in bed, no distress Lungs- clear to auscultation; no respiratory distress Cardiovascular- RRR; no murmur or gallop appreciated ; no JVD; trace pretibial edema Abdomen- + bowel sounds, soft, nontender Extremities- no cyanosis; no calf tenderness; less erythema left lower extremity below the knee; left great toe with superficial ulceration and eschar Neuro- alert, oriented Skin- warm & dry . Laboratory Results: Last 24 Hours Test 06/25/17 20:05 06/26/17 06:13 06/26/17 07:29 06/26/17 11:48 Bedside Glucose 201 mg/dl 181 mg/dl 219 mg/dl White Blood Count 5.96 K/uL Red Blood Count 4.73 M/uL Hemoglobin 15.6 g/dL Hematocrit 44.2 % Mean Corpuscular Volume 93.4 fL Mean Corpuscular Hemoglobin 33.0 pg Mean Corpuscular Hemoglobin Concent 35.3 g/dl RDW Standard Deviation 44.5 fL RDW Coefficient of Variation 13.0 % Platelet Count 109 K/uL Mean Platelet Volume 11.6 fL Prothrombin Time 12.0 SECONDS Prothromb Time International Ratio 1.1 C-Reactive Protein 0.71 mg/dl Test 06/26/17 16:33 Bedside Glucose 204 mg/dl Assessment & Plan SEPSIS / FOOT ULCER / CELLULITIS LLE Met criteria for sepsis at time of admission per Sepsis-1 definition and current CMS guidelines. Source = left foot ulcer + cellulitis left lower extremity. Serum lactate 2.7, repeat 1.5. Hemodynamically stable. Blood cultures obtained and placed on broad-spectrum antibiotic coverage, initially with piperacillin/tazobactam and vancomycin. Now afebrile. Cultures negative. Podiatry consulted; debridement left great toe ulcer performed. Examination left great toe today as noted above. Continue local care; will need wound follow-up with Podiatry and/or Wound Care Center. ID consulted. Wound culture from 06/21 growing coag negative Staphylococcus and gram-negative bacilli. Identification of gram-negative bacilli still pending. Transitioned to oral doxycycline and IV cefepime. Microbiology department unable to identify gram-negative rods seen on wound culture, but sensitivities indicated that the organism was sensitive to cefepime and quinolones. Discharged on doxycycline and ciprofloxacin for 7 days. Importance of proper fitting footwear discussed. Podiatry follow-up with Dr. Blood. NONSUSTAINED VENTRICULAR TACHYCARDIA ~ 35 run of nonsustained ventricular tachycardia occurred during sleep 06/22 with subsequent shorter runs. Potassium and magnesium normal. Echocardiogram 06/21 demonstrated mild global hypokinesis with LVEF 50-55%. Started on metoprolol. Cardiology consulted. Consider sleep apnea. No significant hypoxia during nocturnal pulse oximetry last night. Eventual sleep study recommended. Check outpatient cardiac tech (ZIO patch). Check outpatient stress test. HYPERTENSION Metoprolol initiated for ventricular tachycardia and hypertension. Discharged on amlodipine, lisinopril, metoprolol. Follow and titrate therapy. DM TYPE 2 Fairly well controlled. Hemoglobin A1c 7.7. Held oral agents during hospital stay. Blood sugars fluctuated due to infection, relative immobility, etc. Fasting blood sugar today = 181. Received Lantus/NovoLog per protocol. Discharge on usual regimen. VTE PROPHYLAXIS / HISTORY DVT Prior history of DVT. Venous duplex during this hospital stay demonstrated chronic appearing thrombus in the superficial femoral, popliteal, and calf veins. INRs have been low, titrating warfarin. Received enoxaparin until INR therapeutic. Received warfarin 15 mg day of discharge. Patient instructed to take 15 mg on 06/27. To have INR checked on 06/28 with further instructions per Anticoagulation Clinic. DISPOSITION Discharge to home. Family Medicine follow-up with Dr. Verito Austin. Podiatry follow-up with Dr. Blood. . Current Inpatient Medications: Current Inpatient Medications Medications (Trade) Dose Ordered Sig/Navjot Route Start Time Stop Time Status Last Admin Dose Admin Acetaminophen (Tylenol Tab) 650 mg Q4H PRN PO 06/21/17 00:15 07/21/17 00:14 06/21/17 12:01 650 MG Nitroglycerin (Nitrostat Tab) 0.4 mg UD PRN SL 06/21/17 00:15 07/21/17 00:14 Insulin Aspart (novoLOG ASPART) SLIDING SCALE If C... ACHS SC 06/21/17 06:30 07/21/17 06:59 06/26/17 17:26 8 UNITS Glucose (Glucose 40% Gel) 15-30 GRAMS 15 GRAMS... UD PRN PO 06/21/17 00:15 07/21/17 00:14 Glucose (Glucose Chew Tab) 4-8 Tablets 4 Tabl... UD PRN PO 06/21/17 00:15 07/21/17 00:14 Dextrose (Dextrose 50% 50ML Syringe) 25-50ML 25ML FOR ... UD PRN IV 06/21/17 00:15 07/21/17 00:14 Glucagon (Glucagon Inj) 1 mg UD PRN SQ 06/21/17 00:15 07/21/17 00:14 Carbohydrates (Carbohydrates For Hypoglycemia) 15-30 GRAMS 15 grams if BSG 54-69... UD PRN PO 06/21/17 00:15 07/21/17 00:14 Prochlorperazine Edisylate 5 mg/ Syringe 5 ml @ 5 mls/min Q6H PRN IV 06/21/17 00:15 07/21/17 00:14 Tramadol HCl (Ultram Tab) not relieved by tylenol @ Q6H PRN PO 06/21/17 00:15 07/21/17 00:14 Escitalopram Oxalate (Lexapro Tab) 10 mg DAILY PO 06/21/17 09:00 07/21/17 08:59 06/26/17 08:24 10 MG Pravastatin Sodium (Pravachol Tab) 20 mg HS PO 06/21/17 21:00 07/21/17 20:59 06/25/17 20:11 20 MG Morphine Sulfate (MoRPHine SULFATE INJ) 4 mg Q3H PRN IV 06/21/17 00:15 07/05/17 00:14 Warfarin Sodium (Coumadin Tab) 5 mg DAILY@16 PO 06/21/17 16:00 07/21/17 15:59 Future Hold 06/24/17 15:43 5 MG Cefepime HCl (Consult) 1 ea DAILY PRN N/A 06/21/17 09:00 07/21/17 08:59 Cefepime HCl 2000 mg/Syringe 20 ml @ 5 mls/min Q12H IV 06/21/17 04:00 07/01/17 03:59 06/26/17 17:29 5 MLS/MIN Enoxaparin Sodium (Lovenox Inj) 141 mg Q12H SQ 06/21/17 07:30 07/21/17 07:29 Future hold 06/26/17 08:24 141 MG Metoprolol Succinate (Toprol Xl Tab) 12.5 mg QAM PO 06/23/17 09:00 07/23/17 08:59 06/26/17 08:25 12.5 MG Lisinopril (Zestril Tab) 20 mg DAILY@1200 PO 06/22/17 12:00 07/22/17 11:59 06/26/17 12:08 20 MG Doxycycline Hyclate (Vibramycin Cap) 100 mg BID PO 06/23/17 21:00 07/01/17 20:59 06/26/17 08:25 100 MG Insulin Glargine (Lantus Solostar Pen) 50 units QAM SC 06/26/17 09:00 07/22/17 08:59 06/26/17 08:37 50 UNITS Enoxaparin Sodium (Lovenox Inj) 80 mg Q12H SQ 06/26/17 19:30 06/28/17 07:31 06/26/17 18:20 80 MG Enoxaparin Sodium (Lovenox Inj) 60 mg Q12H SQ 06/26/17 19:30 06/28/17 07:31 06/26/17 18:20 60 MG
--- NOTE | 2017-06-26 19:04 | Discharge Summary ---
Discharge Summary Date of Service June 26, 2017. Discharge Summary Admission Date: June 20, 2017 at 23:43 Discharge Date: June 26, 2017 Discharge Disposition: Home Principal Diagnosis: sepsis cellulitis left lower extremity diabetic ulcer left great toe OTHER ACUTE/SECONDARY DIAGNOSES: chest pain nonsustained ventricular tachycardia . Secondary Diagnoses/Problems: Chronic and Resolved Medical Problems: (1) Anticoagulated on warfarin Status: Chronic (2) Diabetes mellitus, type 2 Status: Chronic (3) Diabetic neuropathy Status: Chronic (4) History of DVT (deep vein thrombosis) Status: Chronic (5) Hypertension Status: Chronic . Procedures: CTA chest venous duplex lower extremity IV meds echocardiogram nocturnal pulse oximetry . Consultations: Podiatry ID . Pending Studies/Follow-Up: Please arrange for the following outpatient studies: sleep study re: nonsustained ventricular tachycardia ZIO patch re: nonsustained ventricular tachycardia Cardiac stress test to be arranged; specific study to be determined by Cardiology . Medication Reconciliation New Medications: Ciprofloxacin Hcl (Cipro) 500 Mg Tab 500 MG PO BID, #14 TAB Doxycycline (Monohydrate) (Doxycycline) 100 Mg Cap 100 MG PO BID, #14 CAP Warfarin Sod (Coumadin) 5 Mg Tab 0 PO UD for 30 Days Tuesday 06/27- take 3 pills (15 mg) Wednesday 06/28- get INR checked in Anticoagulation Clinic and follow their intructions Metoprolol Succinate (Metoprolol Succinate ER) 25 Mg Tabcr 25 MG PO QAM, #30 TAB 5 Refills Continued Medications: Amlodipine (Norvasc) 5 Mg Tab 5 MG PO DAILY Empagliflozin (Jardiance) 25 Mg Tab 25 MG PO DAILY Escitalopram (Lexapro) 10 Mg Tab 10 MG PO DAILY Insulin Glargine (Lantus Solostar) 100 Unit/Ml Inj 50 UNITS SC QAM, PEN Liraglutide (Victoza) 18 Mg/3 Ml Inj 1.8 MG SC DAILY Lisinopril (Zestril) 20 Mg Tab 20 MG PO DAILY Metformin Hcl Er (Glucophage Er) 500 Mg Tab 1000 MG PO BID Pravastatin (Pravachol ) 20 Mg Tab 20 MG PO HS Repaglinide (Prandin) 2 Mg Tab 2 MG PO AC Discontinued Medications: Warfarin Sodium (Warfarin Sodium) 5 Mg Tab 0 PO UD, TAB Dose as of 06/10/17: 10 mg Bdn-Vtf-Dse-Thu-Sat-Sun / 15 mg Wed Admission Information HPI (per Admitting provider): History obtained from patient and records. 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 chronic thrombocytopenia. Patient was not feeling well yesterday. He noticed a blister on the left great toe, which subsequently ruptured yielding yellow drainage. Had increased swelling in the left leg. Patient later noted achy stomach upset going to the chest and both arms. No cough. Some SOB. Fever, chills. At the Emergency Room. Patient received vancomycin and Zosyn for sepsis. Patient currently comfortable. . Physical Exam (per Admitting): VITAL SIGNS: Blood pressure was noted to be 130/70, pulse rate 104, later 94, RR 26.9, sats 96 on room air. GENERAL: Noted to be obese, slightly uncomfortable, in no respiratory distress. SKIN: Normal color, warm. HEENT: [place] palpebral conjunctivae. No ptosis. Dry oral mucosa. NECK: Short, supple. CHEST: CTA, No tenderness. HEART: RRR, no murmur. ABDOMEN: Some distention, nontender. EXTREMITIES: Streaky induration, LLE, dressing on the left great toe. Minimal LLE tenderness NEUROLOGIC: Coherent. No gross focality. . Hospital Course SEPSIS / FOOT ULCER / CELLULITIS LLE Met criteria for sepsis at time of admission per Sepsis-1 definition and current CMS guidelines. Source = left foot ulcer + cellulitis left lower extremity. Serum lactate 2.7, repeat 1.5. Hemodynamically stable. Blood cultures obtained and placed on broad-spectrum antibiotic coverage, initially with piperacillin/tazobactam and vancomycin. Blood cultures negative. Podiatry consulted; debridement left great toe ulcer performed. ID consulted. Wound culture from 06/21 grew coag negative Staphylococcus and gram-negative bacilli. Transitioned to oral doxycycline and IV cefepime. Microbiology department unable to identify gram-negative rods seen on wound culture, but sensitivities indicated that the organism was sensitive to cefepime and quinolones. Discharged on doxycycline and ciprofloxacin for 7 days. Importance of proper fitting footwear discussed. Podiatry follow-up with Dr. Blood. NONSUSTAINED VENTRICULAR TACHYCARDIA ~ 35 run of nonsustained ventricular tachycardia occurred during sleep 06/22 with subsequent shorter runs. Potassium and magnesium normal. Echocardiogram 06/21 demonstrated mild global hypokinesis with LVEF 50-55%. Started on metoprolol. Cardiology consulted. Consider sleep apnea. No significant hypoxia during nocturnal pulse oximetry 06/22. Outpatient sleep study recommended. Check outpatient telemetry monitor (ZIO patch). Check outpatient stress test- study modality per Cardiology. HYPERTENSION Metoprolol initiated for ventricular tachycardia and hypertension. Discharged on amlodipine, lisinopril, metoprolol. Follow and titrate therapy. DM TYPE 2 Fairly well controlled. Hemoglobin A1c 7.7. Held oral agents during hospital stay. Blood sugars fluctuated due to infection, relative immobility, etc. Received Lantus/NovoLog per protocol. Fasting blood sugar day of discharge was 181. Discharged on usual regimen. VTE PROPHYLAXIS / HISTORY DVT Prior history of DVT. Venous duplex during this hospital stay demonstrated chronic appearing thrombus in the superficial femoral, popliteal, and calf veins. INRs have been low, titrating warfarin. Received enoxaparin until INR therapeutic. Received warfarin 15 mg day of discharge. Patient instructed to take 15 mg on 06/27. To have INR checked on 06/28 with further instructions per Anticoagulation Clinic. Consider DOAC if INR's continue to be hard to maintain in therapeutic range. DISPOSITION Discharged to home. Family Medicine follow-up with Dr. Verito Austin. Podiatry follow-up with Dr. Blood. . Total time spent on discharge = 45 min. This includes examination of the patient, discharge planning, medication reconciliation, and communication with other providers. . Discharge Instructions Date of Service June 26, 2017. Admission Reason for Admission: toe ulcer and cellulitis (leg infection) . Discharge Discharge Diagnosis / Problem: toe ulcer and cellulitis (leg infection) Discharge Goals Goal(s): Decrease discomfort, Improve disease control Activity Recommendations Activity Limitations: as noted below Lifting Limitations: gradually increase as tolerated keep left leg elevated when able . . Instructions / Follow-Up Instructions / Follow-Up APPOINTMENTS: PODIATRY Dr. Blood 06/28/17 as scheduled [facility] Please call clinic on Wednesday to schedule an INR to be done that day. FAMILY MEDICINE 07/01/2017 9:40 AM Giuliana Bobby PA-C (covering for Dr. Austin) [facility] OTHER INSTRUCTIONS: Take the following antibiotics as instructed for foot and leg infection: doxycycline 100 mg twice a day ciprofloxacin (Cipro) 500 mg twice a day Avoid excessive sun exposure while taking doxycycline. Antibiotics can interact with warfarin (Coumadin). You received 15 mg of warfarin on Wednesday. Take 15 mg on Wednesday. Get your INR checked on Wednesday and await further instructions from the Anticoagulation Clinic. Avoid pressure on your toes. Discuss best shoes with Dr. Blood. Dressing changes for left big toe: cleanse gently with mild soap and water apply Adaptic cover with sterile gauze dressing You had episodes where your heart was racing (ventricular tachycardia). We started metoprolol succinate (Toprol XL) and things got better. Please ask Dr. Austin to arrange for an outpatient heart monitor as well as a stress test in the future. Please ask for a sleep study to be scheduled as well. Seek medical attention if you have: * temperature above 101 * chest pain or trouble breathing * abdominal pain, nausea, vomiting * diarrhea, dark stools or bloody stools * worsening pain, redness, swelling, drainage of toe, foot, leg * any unanswered questions or concerns Call 911 if symptoms are severe. Call if you have any questions or problems. My cell # is [phone]. You can also reach a [facility] hospitalist on duty at [facility] 24 hours a day by calling [phone]. Please take good care of yourself. Fran Blanco . Current Hospital Diet Patient's current hospital diet: Diabetes Type 2 Diet, AHA Diet (Heart Healthy) Discharge Diet Recommended Diet: AHA Diet (Heart Healthy), Diabetes Type 2 Diet Pending Studies Studies pending at discharge: no Laboratory Results Hemoglobin A1c Test 06/20/17 20:20 Range/Units Estimated Average Glucose 174 mg/dl Hemoglobin A1c 7.7 H 4.5-5.6 % Work Instructions Return To Work: after follow-up Additional Instructions: Jeane Villagomez has been absent from work since around 06/20/17 because of illness. Return to work date to be determined after recheck in office. Medical Emergencies . Who to Call and When: Medical Emergencies: If at any time you feel your situation is an emergency, please call 911 immediately. . Non-Emergent Contact Non-Emergency issues call your: Primary Care Provider, Hospital Doctor, Specialist ([employer]) . . "Provider Documentation" section prepared by Fran Blanco. .. Additional Copies To Verito Austin D.O.; Martine Blood D.PSantos.
[2017-06-26] MEDS ORDERED: ENOXAPARIN 80 MG/0.8 ML SYR SQ SCH (19:30)
[2017-06-26] MEDS ORDERED: ENOXAPARIN 60 MG/0.6 ML SYR SQ SCH (19:30)
== END 2017-06-26 19:00 | disposition home or self-care (01) | DRG 872 ==
LOC: C.EDB 19:58 → C.MED 23:43 → ENRESERV 06-21 00:30
PROVIDERS: ADMIT Internal Medicine; ATTEND Hospitalist
PROC: 0HDNXZZ Extraction of Left Foot Skin, External Approach (ICD-10-PCS; principal; 2017-06-21)
DX: A41.9 Sepsis, unspecified organism (principal); L03.116 Cellulitis of left lower limb; I82.442 Acute embolism and thrombosis of left tibial vein; I82.512 Chronic embolism and thrombosis of left femoral vein; I82.532 Chronic embolism and thrombosis of left popliteal vein; I47.2 Ventricular tachycardia; B95.8 Unspecified staphylococcus as the cause of diseases classified elsewhere; R65.20 Severe sepsis without septic shock; E11.621 Type 2 diabetes mellitus with foot ulcer; L97.521 Non-pressure chronic ulcer of other part of left foot limited to breakdown of skin; K30 Functional dyspepsia; I10 Essential (primary) hypertension; D69.6 Thrombocytopenia, unspecified; E11.42 Type 2 diabetes mellitus with diabetic polyneuropathy; G47.33 Obstructive sleep apnea (adult) (pediatric); E66.9 Obesity, unspecified; Z68.39 Body mass index [BMI] 39.0-39.9, adult; Z86.718 Personal history of other venous thrombosis and embolism; Z79.01 Long term (current) use of anticoagulants; Z79.4 Long term (current) use of insulin; Z79.899 Other long term (current) drug therapy; Z82.49 Family history of ischemic heart disease and other diseases of the circulatory system; Z83.3 Family history of diabetes mellitus; Z82.3 Family history of stroke

== ENCOUNTER → 2017-10-06 | Outpatient (CLI) | payer BC ==
[~2017-10-06] MED LIST changes: -AMLO-110 PO; +AMLO5TAB3 PO; -AVN4 PO; -CEPH500C PO; +CIPR-255 PO; +CMD5 PO; -DIABETIC MEDS; +DOXY-300 PO; +EMPA1TAB3 PO; +ESCI10TA17 PO; +INSDGIPEN SC; -JANUMET; +LIRA18IN SC; -LRT5 PO; +METF500T5 PO; -OXYC1TAB3 PO; +PRAV20TA PO; +REPA2TAB12 PO; -SIMV20TA2 PO; +TPRSR25 PO
== END | disposition home or self-care (01) ==
LOC: C.LABSPEC 17:10
PROVIDERS: ATTEND Podiatrist Foot & Ankle Surgery
DX: L97.509 Non-pressure chronic ulcer of other part of unspecified foot with unspecified severity (principal)

== ENCOUNTER 2019-11-19 10:42 | Inpatient (IN) ==
[2019-11-19] MEDS ORDERED: SODIUM CHLORIDE 0.9% 1000ML 1,000 ML IV ONE ×2 (11:07→13:48)
[2019-11-19] MEDS ORDERED: ACETAMINOPHEN 500 MG TAB PO STA (11:07)
[2019-11-19] MEDS ORDERED: SODIUM CHLORIDE 0.9% 1000ML 1,000 ML IV SCH (11:15)
--- NOTE | 2019-11-19 11:16 | Emergency Department Note ---
History of Present Illness General Chief complaint: Congestion Stated complaint: SINUS PRESSURE,CHEST PRESSURE,TROUBLE STANDING Time Seen by Provider: 11/19/19 10:53 History of Present Illness Maximum Pain Intensity: 4 This is a 54-year-old male that presents to the emergency department via private vehicle with complaints of "sinus pressure, chest pressure, trouble standing, fever". The patient states that he was doing well up until this past Wednesday when all of a sudden he noticed sinus pressure, lightheadedness, sore throat/upper chest discomfort and notes that when he takes a deep breath he has a cough. There is associated nausea. No true chest pain. No vomiting. He denies any close contacts but notes that he does work locally for [employer]. He notes that there may have been employee there that tested positive but he did not have exposure to them that he is aware of. He does feel short of breath. Current discomfort 05/25. He did take his diabetic medication today but no other antipyretics. Home Medications Home Medications Medication Instructions Recorded Confirmed Type Jardiance 25 mg PO QAM 11/29/17 11/19/19 History amlodipine 5 mg PO QAM 11/29/17 11/19/19 History escitalopram oxalate [Lexapro] 10 mg PO QAM 11/29/17 11/19/19 History liraglutide (weight loss) 1.8 mg SUBCUT HS 11/29/17 11/19/19 History lisinopril 20 mg PO QAM 11/29/17 11/19/19 History metformin 1,000 mg PO BID 11/29/17 11/19/19 History metoprolol succinate 25 mg PO QAM 11/29/17 11/19/19 History repaglinide 2 mg PO AC 11/29/17 11/19/19 History insulin glargine [Lantus Solostar 50 unit SUBCUT QAM 08/12/18 11/19/19 History U-100 Insulin] pravastatin 20 mg PO HS 11/19/19 11/19/19 History warfarin See Rx Instructions .ROUTE .COMPLEX 11/19/19 11/19/19 History Allergies Allergy/AdvReac Type Severity Reaction Status Date / Time No Known Allergies Allergy Verified 11/19/19 12:39 Past Med/Surg History Medical History Chronic deep vein thrombosis (DVT) of distal vein of left lower extremity Chronic idiopathic thrombocytopenia Diabetic neuropathy Diastolic CHF, chronic 2D echocardiogram performed on 06/21/2017: mMldly dilated LV chamber size with mild concentric LVH, low normal LV systolic function with borderline globalhypokinesis, EF 50%-55%, grade 1 diastolic dysfunction, poorly visualizedvalvular structures, without significant stenosis or regurgitation DVT (deep venous thrombosis) HTN (hypertension) Hyperlipidemia NSVT (nonsustained ventricular tachycardia) Obesities, morbid Osteomyelitis of toe of left foot Sleep apnea syndrome T2DM (type 2 diabetes mellitus) Surgical History Hx of foot surgery Family History Father , of [place] in 60s Myocardial infarction Diabetes Mother Myocardial infarction Diabetes Social History Smoking Status: Never smoker Do You Dip or Chew Tobacco: Yes; Tobacco Cessation Education Requested by Patient: No Hx Alcohol Use: Yes Alcohol type: beer and hard liquor Hx Substance Use: No Preferred Language: Luxembourger Communication Ability: Effective Visual Impairment: No Limitations Automatic Line Set Up Mechanic Required: No Beliefs That Will Affect Care: None marital status: Current Living Situation: Spouse current occupational status: employed Other Information That Helps Us Care for You: No Feels Safe at Home: Yes Safety Concerns: Feels Safe At This Time Assistive Devices: Glasses Review of Systems A total of 10 systems reviewed and were otherwise negative Physical Exam Vital Signs Vital Signs - 24 hr 11/19/19 10:47 11/19/19 11:27 11/19/19 11:29 Temperature 39.3 C H Temperature Source Oral Pulse Rate 145 H 124 H 123 H Pulse Rate from SpO2 Sensor 124 H 123 H Respiratory Rate 28 H 27 H 24 Respiratory Effort / Characteristics Spontaneous Blood Pressure 152/87 H 131/81 Blood Pressure Mean 108 102 Pulse Oximetry 93 92 92 Oxygen Delivery Method Room Air Sepsis Recent Fever Within 48 Hours Yes Sepsis New/Unexplained Change in Mental Status No Sepsis Action Taken by Nursing No Action Required 11/19/19 11:30 11/19/19 11:31 11/19/19 12:00 Temperature Temperature Source Pulse Rate 122 H 123 H 113 H Pulse Rate from SpO2 Sensor 123 H 124 H 113 H Respiratory Rate 23 25 H 19 Respiratory Effort / Characteristics Blood Pressure 130/84 138/72 Blood Pressure Mean 99 85 Pulse Oximetry 92 92 90 Oxygen Delivery Method Sepsis Recent Fever Within 48 Hours Sepsis New/Unexplained Change in Mental Status Sepsis Action Taken by Nursing 11/19/19 12:01 11/19/19 12:30 11/19/19 12:31 Temperature Temperature Source Pulse Rate 112 H 63 59 L Pulse Rate from SpO2 Sensor 112 H 110 H 109 H Respiratory Rate 22 25 H 22 Respiratory Effort / Characteristics Blood Pressure 110/76 Blood Pressure Mean 82 Pulse Oximetry 91 93 93 Oxygen Delivery Method Sepsis Recent Fever Within 48 Hours Sepsis New/Unexplained Change in Mental Status Sepsis Action Taken by Nursing 11/19/19 13:00 Temperature Temperature Source Pulse Rate 107 H Pulse Rate from SpO2 Sensor 107 H Respiratory Rate 24 Respiratory Effort / Characteristics Blood Pressure 105/72 Blood Pressure Mean 82 Pulse Oximetry 92 Oxygen Delivery Method Sepsis Recent Fever Within 48 Hours Sepsis New/Unexplained Change in Mental Status Sepsis Action Taken by Nursing VITAL SIGNS - Vital signs and nursing notes were reviewed. Patient is tachycardic, hypertensive, tachypneic and febrile. He is saturating well on room air. GENERAL -54-year-old male appearing his stated age who is in no acute distress but does show increased work of breathing. Communicates well with provider and answers questions appropriately. SKIN - Without rashes. HEAD - NC/AT. EYES - PERRL with EOMI bilaterally. Sclera anicteric. Patient is wearing glasses. EARS - No deformities of external structures noted on gross examination bilaterally. NOSE - Midline and without cyanosis. No epistaxis or purulent drainage noted. Septum midline without deviation or septal hematoma noted. MOUTH/OROPHARYNX - Without perioral cyanosis. Buccal mucosa pink and moist and without leukoplakia. Tongue midline with equal elevation of palate bilaterally. No tonsillar hypertrophy, erythema, or exudates noted. Good dentition noted. NECK - Neck with FROM. Supple to palpation. No lymphadenopathy noted. No nuchal rigidity. LUNGS - Chest wall symmetric without accessory muscle use, intercostals retractions, or central cyanosis. Normal vesicular breath sounds CTA B/L. No wheezes, rales, or rhonchi appreciated. Mildly tachypneic. CARDIAC -tachycardic with S1/S2. No murmur, rubs, or gallops appreciated. ABDOMEN - Abdominal contour normal without pulsations or visible masses. BS normoactive all four quadrants. No tenderness, palpable masses, hepatosplenomegaly, or ascites noted. EXTREMITIES - No clubbing or peripheral cyanosis. No pretibial edema present. +5/5 strength noted in UE/LE bilaterally. NEUROLOGIC - Cranial nerves II through XII grossly intact. PSYCH - A&Ox3 and cooperates fully with examiner. Pt is very pleasant and interacts well with examiner. Course Administered Medications Acetaminophen (Acetaminophen 325 Mg Tab) 325 mg PO Q6H PRN PRN Reason: Pain or Fever Stop: 12/19/19 12:59 Last Admin: 11/19/19 17:58 Dose: 325 mg Documented by: [id number] Insulin Aspart (Insulin Aspart 100 Units/Ml 3 Ml Pen) 0 units SC ACHS YO Stop: 12/19/19 16:59 Last Admin: 11/19/19 17:53 Dose: 2 units Documented by: [id number] Cosigned by: [id number] Warfarin Sodium (Warfarin Sod 10 Mg Tab) 10 mg PO [id number] YO Stop: 12/19/19 16:59 Last Admin: 11/19/19 17:53 Dose: 10 mg Documented by: [id number] Discontinued Medications Acetaminophen (Acetaminophen 500 Mg Tab) 1,000 mg PO NOW STA Stop: 11/19/19 11:08 Last Admin: 11/19/19 11:25 Dose: 1,000 mg Documented by: [id number] Azithromycin (Azithromycin 250 Mg Tab) 500 mg PO NOW ONE Stop: 11/19/19 12:25 Last Admin: 11/19/19 13:05 Dose: 500 mg Documented by: [id number] Sodium Chloride (Nss 1000ml) 1,000 mls @ 999 mls/hr IV .Q1H1M YO Stop: 11/19/19 12:15 Last Infusion: 11/19/19 12:44 Dose: 0 mls/hr Documented by: [id number] Admin: 11/19/19 11:35 Dose: 999 mls/hr Documented by: [id number] Sodium Chloride (Nss 1000ml) 1,000 mls @ 999 mls/hr IV .Q1H1M ONE Stop: 11/19/19 12:07 Last Infusion: 11/19/19 12:44 Dose: 0 mls/hr Documented by: [id number] Admin: 11/19/19 11:35 Dose: 999 mls/hr Documented by: [id number] Ceftriaxone Sodium (Rocephin) 2,000 mg in 70 mls @ 140 mls/hr IV NOW STA Stop: 11/19/19 12:53 Last Infusion: 11/19/19 14:13 Dose: 0 mls/hr Documented by: [id number] Admin: 11/19/19 13:05 Dose: 140 mls/hr Documented by: [id number] Sodium Chloride (Nss 1000ml) 500 mls @ 999 mls/hr IV .Q31M ONE Stop: 11/19/19 13:45 Last Infusion: 11/19/19 14:13 Dose: 0 mls/hr Documented by: [id number] Admin: 11/19/19 13:18 Dose: 999 mls/hr Documented by: [id number] Sodium Chloride (Nss 1000ml) 1,000 mls @ 999 mls/hr IV .Q1H1M ONE Stop: 11/19/19 14:48 Last Infusion: 11/19/19 16:41 Dose: 0 mls/hr Documented by: [id number] Admin: 11/19/19 15:28 Dose: 999 mls/hr Documented by: [id number] Piperacillin Sod/Tazobactam (Sod 4.5 gm/ Dextrose) 120 mls @ 200 mls/hr IV ONE ONE; Protocol Stop: 11/19/19 17:35 Last Admin: 11/19/19 17:49 Dose: 200 mls/hr Documented by: [id number] Medical Decision Making Laboratory Data Result diagrams: 11/19/19 11:30 11/19/19 13:24 Lab Results 11/19/19 11/19/19 11/19/19 Range/Units 11:25 11:30 11:30 WBC 11.30 H (4.8-10.8) K/uL RBC 5.33 (4.7-6.1) M/uL Hgb 17.6 (14.0-18.0) g/dL Hct 51.0 (42-52) % MCV 95.7 (80-100) fL MCH 33.0 (25-34) pg MCHC 34.5 (32-36) g/dL RDW Std Deviation 46.7 H (36.4-46.3) fL RDW Coeff of Cassandra 13.3 (11.5-14.5) % Plt Count 118 L (130-400) K/uL MPV 12.0 H (7.4-10.4) fL Immature Gran % (Auto) 0.2 % Neut % (Auto) 86.0 % Lymph % (Auto) 4.3 % [place] % (Auto) 9.3 % Eos % (Auto) 0.1 % Baso % (Auto) 0.1 % Neut # (Auto) 9.72 H (1.4-6.5) K/uL Lymph # (Auto) 0.49 L (1.2-3.4) K/uL [place] # (Auto) 1.05 H (0.11-0.59) K/uL Eos # (Auto) 0.01 (0-0.5) K/uL Baso # (Auto) 0.01 (0-0.2) K/uL Immature Gran # (Auto) 0.02 (0.00-0.02) K/uL PT 18.2 H (9.0-12.0) Seconds INR 1.8 H (0.9-1.1) APTT 36.2 H (21.0-31.0) Seconds PTT Ratio 1.3 Sodium (136-145) mmol/L Potassium (3.5-5.1) mmol/L Chloride (98-107) mmol/L Carbon Dioxide (21-32) mmol/L Anion Gap (3-11) BUN (7-18) mg/dl Creatinine (0.6-1.4) mg/dl Est Cr Clr Drug Dosing ml/min Est GFR ( Amer) Est GFR (Non-Af Amer) BUN/Creatinine Ratio (10-20) Glucose (70-99) mg/dl Lactate (0.4-2.0) mmol/L Calcium (8.5-10.1) mg/dl Magnesium (1.8-2.4) mg/dl Total Bilirubin (0.2-1) mg/dl AST (15-37) U/L ALT (12-78) U/L Alkaline Phosphatase (45-117) U/L Troponin I (0-0.045) ng/ml Total Protein (6.4-8.2) gm/dl Albumin (3.4-5.0) gm/dl Globulin (2.5-4.0) gm/dl Albumin/Globulin Ratio (0.9-2) Beta-Hydroxybutyric Acd (0.2-2.81) mg/dl TSH (0.300-4.500) uIu/ml Urine Color Yellow Urine Appearance Clear (Clear) Urine pH 5.0 (4.5-7.5) Ur Specific Raven 1.034 H (1.000-1.030) Urine Protein Negative (Negative) Urine Glucose (UA) 3+ H (Negative) Urine Ketones Trace H (Negative) Urine Blood Negative (Negative) Urine Nitrite Negative (Negative) Urine Bilirubin Negative (Negative) Urine Urobilinogen Negative (Negative) Ur Leukocyte Esterase Negative (Negative) COVID-19 Eval Order COVID-19 PCR (Negative) Influenza Type A (PCR) (Neg) Influenza Type B (PCR) (Neg) 11/19/19 11/19/19 11/19/19 Range/Units 11:30 11:30 11:30 WBC (4.8-10.8) K/uL RBC (4.7-6.1) M/uL Hgb (14.0-18.0) g/dL Hct (42-52) % MCV (80-100) fL MCH (25-34) pg MCHC (32-36) g/dL RDW Std Deviation (36.4-46.3) fL RDW Coeff of Cassandra (11.5-14.5) % Plt Count (130-400) K/uL MPV (7.4-10.4) fL Immature Gran % (Auto) % Neut % (Auto) % Lymph % (Auto) % [place] % (Auto) % Eos % (Auto) % Baso % (Auto) % Neut # (Auto) (1.4-6.5) K/uL Lymph # (Auto) (1.2-3.4) K/uL [place] # (Auto) (0.11-0.59) K/uL Eos # (Auto) (0-0.5) K/uL Baso # (Auto) (0-0.2) K/uL Immature Gran # (Auto) (0.00-0.02) K/uL PT (9.0-12.0) Seconds INR (0.9-1.1) APTT (21.0-31.0) Seconds PTT Ratio Sodium 131 L (136-145) mmol/L Potassium 4.5 (3.5-5.1) mmol/L Chloride 99 (98-107) mmol/L Carbon Dioxide 24 (21-32) mmol/L Anion Gap 8.0 (3-11) BUN 21 H (7-18) mg/dl Creatinine 1.30 (0.6-1.4) mg/dl Est Cr Clr Drug Dosing 98.1 ml/min Est GFR ( Amer) 71.2 Est GFR (Non-Af Amer) 61.4 BUN/Creatinine Ratio 16.5 (10-20) Glucose 351 H* (70-99) mg/dl Lactate 2.3 H* (0.4-2.0) mmol/L Calcium 9.5 (8.5-10.1) mg/dl Magnesium 2.2 (1.8-2.4) mg/dl Total Bilirubin 2.0 H (0.2-1) mg/dl AST 41 H (15-37) U/L ALT 60 (12-78) U/L Alkaline Phosphatase 105 (45-117) U/L Troponin I < 0.015 (0-0.045) ng/ml Total Protein 7.9 (6.4-8.2) gm/dl Albumin 3.2 L (3.4-5.0) gm/dl Globulin 4.7 H (2.5-4.0) gm/dl Albumin/Globulin Ratio 0.7 L (0.9-2) Beta-Hydroxybutyric Acd 9.44 H (0.2-2.81) mg/dl TSH 0.306 (0.300-4.500) uIu/ml Urine Color Urine Appearance (Clear) Urine pH (4.5-7.5) Ur Specific Raven (1.000-1.030) Urine Protein (Negative) Urine Glucose (UA) (Negative) Urine Ketones (Negative) Urine Blood (Negative) Urine Nitrite (Negative) Urine Bilirubin (Negative) Urine Urobilinogen (Negative) Ur Leukocyte Esterase (Negative) COVID-19 Eval Order COVID-19 PCR (Negative) Influenza Type A (PCR) Neg for Influ A (Neg) Influenza Type B (PCR) Neg for Influ B (Neg) 11/19/19 11/19/19 Range/Units 11:30 11:30 WBC (4.8-10.8) K/uL RBC (4.7-6.1) M/uL Hgb (14.0-18.0) g/dL Hct (42-52) % MCV (80-100) fL MCH (25-34) pg MCHC (32-36) g/dL RDW Std Deviation (36.4-46.3) fL RDW Coeff of Cassandra (11.5-14.5) % Plt Count (130-400) K/uL MPV (7.4-10.4) fL Immature Gran % (Auto) % Neut % (Auto) % Lymph % (Auto) % [place] % (Auto) % Eos % (Auto) % Baso % (Auto) % Neut # (Auto) (1.4-6.5) K/uL Lymph # (Auto) (1.2-3.4) K/uL [place] # (Auto) (0.11-0.59) K/uL Eos # (Auto) (0-0.5) K/uL Baso # (Auto) (0-0.2) K/uL Immature Gran # (Auto) (0.00-0.02) K/uL PT (9.0-12.0) Seconds INR (0.9-1.1) APTT (21.0-31.0) Seconds PTT Ratio Sodium (136-145) mmol/L Potassium (3.5-5.1) mmol/L Chloride (98-107) mmol/L Carbon Dioxide (21-32) mmol/L Anion Gap (3-11) BUN (7-18) mg/dl Creatinine (0.6-1.4) mg/dl Est Cr Clr Drug Dosing ml/min Est GFR ( Amer) Est GFR (Non-Af Amer) BUN/Creatinine Ratio (10-20) Glucose (70-99) mg/dl Lactate (0.4-2.0) mmol/L Calcium (8.5-10.1) mg/dl Magnesium (1.8-2.4) mg/dl Total Bilirubin (0.2-1) mg/dl AST (15-37) U/L ALT (12-78) U/L Alkaline Phosphatase (45-117) U/L Troponin I (0-0.045) ng/ml Total Protein (6.4-8.2) gm/dl Albumin (3.4-5.0) gm/dl Globulin (2.5-4.0) gm/dl Albumin/Globulin Ratio (0.9-2) Beta-Hydroxybutyric Acd (0.2-2.81) mg/dl TSH (0.300-4.500) uIu/ml Urine Color Urine Appearance (Clear) Urine pH (4.5-7.5) Ur Specific [place] (1.000-1.030) Urine Protein (Negative) Urine Glucose (UA) (Negative) Urine Ketones (Negative) Urine Blood (Negative) Urine Nitrite (Negative) Urine Bilirubin (Negative) Urine Urobilinogen (Negative) Ur Leukocyte Esterase (Negative) COVID-19 Eval Order Covid19 Done at [facility] COVID-19 PCR NEGATIVE (Negative) Influenza Type A (PCR) (Neg) Influenza Type B (PCR) (Neg) Imaging Data Radiologist's Impression: XR chest 1V portable CLINICAL HISTORY: dyspnea, fever COMPARISON STUDY: No previous studies for comparison. FINDINGS: The heart is mildly enlarged. There are low lung volumes. There are right basilar airspace opacities, atelectasis versus pneumonia. There are no pleural effusions. There is no overt failure.[ IMPRESSION: 1. Cardiomegaly 2. Low lung volumes 3. Right basilar opacities likely atelectatic although an infectious/inflammatory processes could appear similar ACT 112: Negative or not required by law. Electronically signed by: Cesar Moreno M.D. 11/19/2019 12:01 PM MDM Narrative Patient was seen and evaluated as above in room C5. Review was performed of nursing notes and vital signs. I did review pertinent previous visits and patient history. After obtaining a thorough history and physical examination the above work up was performed. He presents to us today with what appear to be abrupt onset of sinus pressure, lightheadedness, sore throat. He has associated nausea. I will note that this is during the COVID-19 pandemic. The patient's abrupt onset of symptoms certainly could come from this. However, the patient does have elevated heart rate as well as increased respiratory rate and is febrile. There is leukocytosis white blood cell count 11.30 without anemia. INR 1.8. Patient is hyperglycemic. There is elevation of the lactate. Urinalysis does not suggest infection. There is elevation of the beta hydroxybutyric acid. No emergent metabolic abnormality. No gap. Urinalysis does not suggest infection. Influenza testing negative. COVID negative. Chest x-ray as above. With the chest x-ray finding, the patient's vital signs and negative COVID antibiotics were added. I covered for respiratory agents. IV Rocephin and p.o. azithromycin ordered. I believe that further evaluation and management in the inpatient setting is warranted. Patient was given 2 L of normal saline. A full 30/kg was not provided noting the patient lactate is under 4 and he is not hypotensive. Patient was amenable to staying. Case discussed with the hospitalist. Please refer to further documentation regarding his stay Case was discussed with the attending physician. EKG per my interpretation reveals sinus tachycardia rate of 120 bpm. QTc 424. There is no ST elevation. An order was placed for continuous cardiac monitoring. The monitor shows a rate of 117 bpm with sinus rhythm. I attest that I have personally reviewed the patient medication list. I attest that I have reviewed the patient's blood pressure and it was found to be elevated on arrival and not hypotensive. GCS: 15 In the evaluation and treatment of this patient the following differential diagnoses were entertained: PA, PE, pericarditis, sepsis, COVID, influenza, dehydration, DKA, among others. Impression & Plan Sepsis, Fever Discharge Plan Visit Data Chief Complaint: Congestion Stated Complaint: SINUS PRESSURE,CHEST PRESSURE,TROUBLE STANDING ED Provider: Frederick Gamble ED Midlevel Provider: Hany Kay Discharge Problem: Sepsis, Fever Patient Disposition: Admitted As Inpatient Condition: Good Discharge Instructions Interventions: ED Discharge Assessment Last Done: 11/19/19 15:39
[2019-11-19 12:02] LABS: Appearance Urine Clear (Clear); Bilirubin Urine Negative (Negative); Blood Urine Negative (Negative); Color Urine Yellow; Glucose Urine UA 3+ (Negative); Ketones Urine Trace (Negative); Leukocyte Esterase Urine Negative (Negative); Nitrite Urine Negative (Negative); Protein Urine Negative (Negative); Specific Gravity Urine 1.034 (1.000-1.030); Urobilinogen Urine Negative (Negative)
--- NOTE | 2019-11-19 12:02 | XRay Report ---
XR chest 1V portable CLINICAL HISTORY: dyspnea, fever COMPARISON STUDY: No previous studies for comparison. FINDINGS: The heart is mildly enlarged. There are low lung volumes. There are right basilar airspace opacities, atelectasis versus pneumonia. There are no pleural effusions. There is no overt failure.[ IMPRESSION: 1. Cardiomegaly 2. Low lung volumes 3. Right basilar opacities likely atelectatic although an infectious/inflammatory processes could keshav ear similar ACT 112: Negative or not required by law. Electronically signed by: Cesar Moreno M.D. 11/19/2019 12:01 PM
[2019-11-19 12:09] LABS: INR 1.8 (0.9-1.1); Partial Thromboplastin Ratio 1.3; Partial Thromboplastin Time 36.2 Seconds (21.0-31.0); Prothrombin Time 18.2 Seconds (9.0-12.0)
[2019-11-19 12:17] LABS: Alanine Aminotransferase 60 U/L (12-78); Albumin Level 3.2 gm/dl (3.4-5.0); Aspartate Aminotransferase 41 U/L (15-37); BUN Creatinine Ratio 16.5 (10-20); Blood Urea Nitrogen 21 mg/dl (7-18); Calcium 9.5 mg/dl (8.5-10.1); Carbon Dioxide 24 mmol/L (21-32); Chloride 99 mmol/L (98-107); Creatinine Clr Calc Pharmacy 98.1 ml/min; Est GFR (African American) 71.2; Est GFR (Non-African American) 61.4; Glucose 351 mg/dl (70-99); Magnesium 2.2 mg/dl (1.8-2.4); Potassium 4.5 mmol/L (3.5-5.1); Sodium 131 mmol/L (136-145)
[2019-11-19] MEDS ORDERED: AZITHROMYCIN 250 MG TAB PO ONE (12:24)
[2019-11-19] MEDS ORDERED: cefTRIAXone SODIUM 2,000 MG/70 ML BAG IV STA (12:24)
[2019-11-19 12:33] LABS: Albumin Globulin Ratio 0.7 (0.9-2); Alkaline Phosphatase 105 U/L (45-117); Beta-Hydroxybutyrate 9.44 mg/dl (0.2-2.81); Globulin 4.7 gm/dl (2.5-4.0); Thyroid Stimulating Hormone 0.306 uIu/ml (0.300-4.500); Total Protein 7.9 gm/dl (6.4-8.2); Troponin I < 0.015 ng/ml (0-0.045)
[2019-11-19 12:40] LABS: Hemoglobin 17.6 g/dL (14.0-18.0); Mean Corpuscular Hgb Conc 34.5 g/dL (32-36); Mean Corpuscular Volume 95.7 fL (80-100); Platelet Count 118 K/uL (130-400); RDW Coefficient of Variation 13.3 % (11.5-14.5); RDW Standard Deviation 46.7 fL (36.4-46.3); Red Blood Count 5.33 M/uL (4.7-6.1)
[2019-11-19 12:41] LABS: Influenza A virus by PCR Neg for Influ A (Neg); Influenza B virus by PCR Neg for Influ B (Neg)
[2019-11-19 12:42] LABS: Basophils # (auto) 0.01 K/uL (0-0.2); Basophils % (auto) 0.1 %; Eosinophils # (auto) 0.01 K/uL (0-0.5); Eosinophils % (auto) 0.1 %; Immature Granulocytes # (auto) 0.02 K/uL (0.00-0.02); Immature Granulocytes % (auto) 0.2 %; Lymphocytes # (auto) 0.49 K/uL (1.2-3.4); Lymphocytes % (auto) 4.3 %; Monocytes # (auto) 1.05 K/uL (0.11-0.59); Monocytes % (auto) 9.3 %; Neutrophils # (auto) 9.72 K/uL (1.4-6.5)
[2019-11-19] MEDS ORDERED: GLUCAGON FOR INJ 1 MG VIAL SQ PRN (12:46)
[2019-11-19] MEDS ORDERED: GLUCOSE 10 TABS/TUBE PO PRN (12:46)
[2019-11-19] MEDS ORDERED: CARBOHYDRATES FOR HYPOGLYCEMIA PO PRN (12:46)
[2019-11-19] MEDS ORDERED: DEXTROSE 50% 50 ML SYRINGE IV PRN (12:46)
[2019-11-19] MEDS ORDERED: GLUCOSE 40% GEL 15 GM TUBE PO PRN (12:46)
[2019-11-19] MEDS ORDERED: ACETAMINOPHEN 325 MG TAB PO PRN (12:49)
[2019-11-19] MEDS ORDERED: PROMETHAZINE HCL 6.25 MG in SODIUM CHLORIDE 0.9% 50 ML IV PRN (12:50)
[2019-11-19] MEDS ORDERED: PIPERACILLIN/TAZOBACTAM 3.375 GM in DEXTROSE 5% 100 ML IV SCH (13:00)
[2019-11-19] MEDS ORDERED: PIPERACILL/TAZOBAC CONSULT ACTIVE PRN (13:00)
--- NOTE | 2019-11-19 13:09 | History & Physical Report ---
Date of Service November 19, 2019 Assessment & Plan (1) Sepsis: -This is a 54 year old male with type 2 diabetes mellitus and on coumadin -symptoms of headache, sore throat, and nausea, coughing x 1 week and patient reported fever 1 day prior to presentation to the ED on 11/19/2019 -admission WBC of 11,300 and elevated lactic acid of 2.3 with fever and tachycardia that patient meets sepsis criteria -admission CXR: The heart is mildly enlarged. There are low lung volumes. There are right basilar airspace opacities, atelectasis versus pneumonia. There are no pleural effusions. There is no overt failure -COVID-19 and Influenza tests were performed and are negative -patient was empirically given ceftriaxone 2000 mg and azithromycin 500 mg in the ED and 2000 ml IV fluids, 2nd lactic acid level pending -Given it is unclear whether patient's source of fever is from respiratory tract or elsewhere, additional IV fluids of 1.5 liters to be given and patient to be upgraded to Zosyn and Doxycycline instead (to avoid azithromycin interaction on coumadin or home escitalopram -patient is obese and is 143.4 kg so adjusted body weight would have to be used to calculate fluid resuscitation and that would be 108 kg x 30 cc/kg in first 3 hours as per CMS sepsis criteria -follow the blood cultures, procalcitonin levels, BNP -because of IV fluids given for the sepsis a follow up CXR will be ordered as scheduled on 11/20/2019 (2) Fever: -antibiotics and prn acetaminophen (3) HTN (hypertension): -patient is normotensive despite the sepsis -hold home dose lisinopril, monitor the creatinine -continue home dose amlodipine and metoprolol (4) Diabetes mellitus with hyperglycemia: Type 2 diabetes mellitus with buttermaker helper current use of insulin with hyperglycemia -admission serum glucose of 351 with elevated Beta-Hydroxybutyrate, but normal anion gap -check hemoglobin A1c -given IV fluids -sliding scale insulin as needed based on finger stick glucose, continue home dose Lantus 50 units qhs, diabetic diet. hold home dose jardiance for now (5) Obesities, morbid: Obesity with BMI of 39.5 in adult -patient is 6 foor 3 inches tall (75 inches tall) with actual weight of 143.4 kg (315 lbs), adjusted body weight would have to be used to calculate fluid resuscitation and that would be 108 kg -continue home dose statin (6) Tobacco use: -patient reports he takes snuff tobacco -he declines nicotine patch while in hospital (7) DVT prophylaxis: History of chronic deep vein thrombosis of distal vein of left lower extremities -admission INR mildly subtherapeutic of 1.8 -continue home dose warfarin of 15 mg every Wednesday and every Wednesday and 10 mg daily on other days of the week (/Wednesday/Wednesday//Wednesday) -goal INR is between 2 to 3, place on SCDs for now in addition Full Code Katie [phone] Aguilar will be hospitalist for the patient starting on 11/20/2019 History of Present Illness -This is a 54 year old male with type 2 diabetes mellitus and on coumadin -symptoms of headache, sore throat, and nausea, coughing x 1 week and patient reported fever 1 day prior to presentation to the ED on 11/19/2019 -admission WBC of 11,300 and elevated lactic acid of 2.3 with fever and tachycardia that patient meets sepsis criteria -admission CXR: The heart is mildly enlarged. There are low lung volumes. There are right basilar airspace opacities, atelectasis versus pneumonia. There are no pleural effusions. There is no overt failure -COVID-19 and Influenza tests were performed and are negative -patient was empirically given ceftriaxone 2000 mg and azithromycin 500 mg in the ED and 2000 ml IV fluids, 2nd lactic acid level pending Other Review of systems are negative Family History of Mother with history of cancer and strong family history fo Diabetes Mellitus Type 2 and Hypertension Primary Care Provider: Giuliana Bobby PA-C Allergies Allergy/AdvReac Type Severity Reaction Status Date / Time No Known Allergies Allergy Verified 11/19/19 12:39 Home Medications Home Medications Medication Instructions Recorded Confirmed Type Jardiance 25 mg PO QAM 11/29/17 11/19/19 History amlodipine 5 mg PO QAM 11/29/17 11/19/19 History escitalopram oxalate [Lexapro] 10 mg PO QAM 11/29/17 11/19/19 History liraglutide (weight loss) 1.8 mg SUBCUT HS 11/29/17 11/19/19 History lisinopril 20 mg PO QAM 11/29/17 11/19/19 History metformin 1,000 mg PO BID 11/29/17 11/19/19 History metoprolol succinate 25 mg PO QAM 11/29/17 11/19/19 History repaglinide 2 mg PO AC 11/29/17 11/19/19 History insulin glargine [Lantus Solostar 50 unit SUBCUT QAM 08/12/18 11/19/19 History U-100 Insulin] pravastatin 20 mg PO HS 11/19/19 11/19/19 History warfarin See Rx Instructions .ROUTE .COMPLEX 11/19/19 11/19/19 History Past Med/Surg History Medical History Chronic deep vein thrombosis (DVT) of distal vein of left lower extremity Chronic idiopathic thrombocytopenia Diabetic neuropathy Diastolic CHF, chronic 2D echocardiogram performed on 06/21/2017: mMldly dilated LV chamber size with mild concentric LVH, low normal LV systolic function with borderline globalhypokinesis, EF 50%-55%, grade 1 diastolic dysfunction, poorly visualizedvalvular structures, without significant stenosis or regurgitation DVT (deep venous thrombosis) HTN (hypertension) Hyperlipidemia NSVT (nonsustained ventricular tachycardia) Obesities, morbid Osteomyelitis of toe of left foot Sleep apnea syndrome T2DM (type 2 diabetes mellitus) Surgical History Hx of foot surgery Family History Father , of [place] in 60s Myocardial infarction Diabetes Mother Myocardial infarction Diabetes Social History Smoking Status: Never smoker Hx Alcohol Use: Yes Alcohol type: beer and wine Hx Substance Use: No Preferred Language: Libyan Communication Ability: Effective Visual Impairment: No Limitations Beliefs That Will Affect Care: None marital status: Current Living Situation: Spouse current occupational status: employed Feels Safe at Home: Yes Assistive Devices: Glasses Review of Systems Review of Systems: All systems reviewed & are unremarkable except as noted in Subjective Physical Exam Constitutional: + morbidly obese Eyes: PERRL, conjunctivae normal, anicteric sclerae EOM intact bilaterally ENMT: external ear and nose normal, oropharynx normal Neck: trachea midline, no thyromegaly normal visual inspection Respiratory: normal respiratory effort no wheezing Cardiovascular: Rate/Rhythm: + tachycardic Gastrointestinal (Abdomen): normal bowel sounds, soft, nontender, no hepatosplenomegaly Musculoskeletal: Head/Neck/Chest: normocephalic and head atraumatic Neurologic: PERRL, EOMI, accommodation nl, no face palsy, no dysarthria CN's II-XI intact bilaterally Psychiatric: A+Ox3, euthymic affect Results & Data Results & Data ([facility]) Vital Signs (Past 12 Hours) Vital Signs Temp Pulse Resp BP Pulse Ox 11/19/19 12:01 112 H 22 91 11/19/19 12:00 113 H 19 138/72 90 11/19/19 11:31 123 H 25 H 92 11/19/19 11:30 122 H 23 130/84 92 11/19/19 11:29 123 H 24 92 11/19/19 11:27 124 H 27 H 131/81 92 11/19/19 10:47 39.3 C H 145 H 28 H 152/87 H 93 Code Status & VTE Plan VTE Prophylaxis Plan VTE Prophylaxis will be ordered: Yes
[2019-11-19] MEDS ORDERED: SODIUM CHLORIDE 0.9% 1000ML 500 ML IV ONE (13:15)
[2019-11-19 14:04] LABS: Albumin Level 2.7 gm/dl (3.4-5.0); BUN Creatinine Ratio 18.9 (10-20); Calcium 8.2 mg/dl (8.5-10.1); Creatinine Clr Calc Pharmacy 114.9 ml/min; Est GFR (African American) 86.2; Est GFR (Non-African American) 74.4; Potassium 4.3 mmol/L (3.5-5.1)
[2019-11-19 14:13] LABS: Albumin Globulin Ratio 0.7 (0.9-2); Bilirubin,Total 1.1 mg/dl (0.2-1); Globulin 3.8 gm/dl (2.5-4.0); Total Protein 6.5 gm/dl (6.4-8.2)
--- NOTE | 2019-11-19 16:37 | CT Scan Report ---
CT head/brain wo con CLINICAL HISTORY: Severe headache COMPARISON STUDY: 08/12/2018 TECHNIQUE: Axial CT of the brain is performed from the vertex to the skull base. IV contrast was not administered for this examination. A dose lowering technique was utilized adhering to the principles of ALARA. CT DOSE: 774.51 mGycm FINDINGS: No intra or extra-axial mass lesions are visualized. There is no CT evidence of acute cortical infarc tion. There is no evidence of midline shift. There is no acute hemorrhage. No calvarial fractures ar e visualized. There are minimal white matter hypodensities likely on a small vessel basis. There is no evidence of pathologic ventricular dilatation. There is no evidence of acute sinusitis IMPRESSION: No acute intracranial findings ACT 112: Negative or not required by law. Electronically signed by: Cesar Moreno M.D. 11/19/2019 4:36 PM
--- NOTE | 2019-11-19 16:42 | CT Scan Report ---
CT sinus wo con CLINICAL HISTORY: Headache. Possible acute sinusitis. COMPARISON STUDY: None. TECHNIQUE: CT scan of the paranasal sinuses was performed in the axial plane. Coronal reconstructed images were obtained and reviewed. A dose lowering technique was utilized adhering to the principles of ALARA. CT DOSE: 702.95 mGycm FINDINGS: No orbital lesions are visualized. There is no evidence of hydrocephalus. The mastoid air cells are symmetrically aerated. The middle ear cavities are well aerated. The ethmoi d sphenoid maxillary and frontal sinuses are essentially clear. The ostiomeatal units are patent bila terally. There is a small focus of mucosal thickening within the left infundibulum which does not res ult in significant narrowing. The frontal and sphenoidal recesses are patent there is a small left-si ded Yuniel cell IMPRESSION: 1. No evidence of acute sinusitis 2. No evidence of significant ostiomeatal unit narrowing ACT 112: Negative or not required by law. Electronically signed by: Cesar Moreno M.D. 11/19/2019 4:41 PM
[2019-11-19] MEDS ORDERED: PNEUMOCOCCAL ADMINISTRATION CHARGE ONE (16:57)
[2019-11-19] MEDS ORDERED: PNEUMOCOCCAL POLYSACCHARIDES 25 MCG/0.5 ML VIAL/SYR IM ONE (16:57)
[2019-11-19] MEDS ORDERED: PIPERACILLIN/TAZOBACTAM 4.5 GM in DEXTROSE 5% 100 ML IV ONE (17:00)
[2019-11-19] MEDS ORDERED: METOPROLOL TARTRATE 1 MG/ML VIAL IV PRN (17:16)
[2019-11-19] MEDS: WARFARIN SOD 10 MG TAB PO SCH (17:53)
[2019-11-19] MEDS: INSULIN ASPART 100 UNITS/ML 3 ML PEN SC SCH ×2 (17:53→21:59)
[2019-11-19] MEDS: DOXYCYCLINE HYCLATE 100 MG in DEXTROSE 5% 100 ML IV SCH (18:29)
[2019-11-19] MEDS ORDERED: IBUPROFEN 200 MG TAB PO STA (18:38)
[2019-11-19] MEDS ORDERED: IBUPROFEN 200 MG TAB PO PRN (18:38)
[2019-11-19] MEDS ORDERED: INSULIN GLARGINE SOLOSTAR 100 UNITS/ML 3 ML PEN SC STA (21:59)
[2019-11-19] MEDS: PIPERACILLIN/TAZOBACTAM 4.5 GM in DEXTROSE 5% 100 ML IV SCH (21:59)
[2019-11-19] MEDS: PRAVASTATIN SOD 20 MG TAB PO SCH (22:02)
[2019-11-20] MEDS: DOXYCYCLINE HYCLATE 100 MG in DEXTROSE 5% 100 ML IV SCH ×2 (05:22→17:26)
[2019-11-20] MEDS: PIPERACILLIN/TAZOBACTAM 4.5 GM in DEXTROSE 5% 100 ML IV SCH ×3 (05:23→21:14)
[2019-11-20] MEDS ORDERED: ALUMINUM/MAGNESIUM/SIMETH (MAALOX MAX) 30 ML UDC PO STA (06:05)
[2019-11-20 06:40] LABS: Estimated Average Glucose 252 mg/dl; Hemoglobin A1C 10.4 % (4.5-5.6)
[2019-11-20 06:42] LABS: INR 1.5 (0.9-1.1); Prothrombin Time 15.8 Seconds (9.0-12.0)
[2019-11-20 06:52] LABS: Hematocrit (blood only) 44.2 % (42-52); Mean Corpuscular Hemoglobin 32.4 pg (25-34); Mean Corpuscular Hgb Conc 33.9 g/dL (32-36); Mean Corpuscular Volume 95.5 fL (80-100); Mean Platelet Volume 12.3 fL (7.4-10.4); Platelet Count 105 K/uL (130-400); RDW Coefficient of Variation 13.6 % (11.5-14.5); RDW Standard Deviation 47.7 fL (36.4-46.3); Red Blood Count 4.63 M/uL (4.7-6.1); White Blood Count 9.92 K/uL (4.8-10.8)
[2019-11-20 06:57] LABS: Basophils # (auto) 0.01 K/uL (0-0.2); Basophils % (auto) 0.1 %; Eosinophils # (auto) 0.08 K/uL (0-0.5); Eosinophils % (auto) 0.8 %; Immature Granulocytes # (auto) 0.03 K/uL (0.00-0.02); Immature Granulocytes % (auto) 0.3 %; Lymphocytes # (auto) 0.95 K/uL (1.2-3.4); Lymphocytes % (auto) 9.6 %; Monocytes # (auto) 0.66 K/uL (0.11-0.59); Monocytes % (auto) 6.7 %; Neutrophils # (auto) 8.19 K/uL (1.4-6.5); Neutrophils % (auto) 82.5 %
[2019-11-20 06:59] LABS: Alanine Aminotransferase 49 U/L (12-78); Albumin Level 2.6 gm/dl (3.4-5.0); Aspartate Aminotransferase 31 U/L (15-37); BUN Creatinine Ratio 17.3 (10-20); Blood Urea Nitrogen 17 mg/dl (7-18); Calcium 8.9 mg/dl (8.5-10.1); Carbon Dioxide 24 mmol/L (21-32); Chloride 103 mmol/L (98-107); Creatinine Clr Calc Pharmacy 129.7 ml/min; Est GFR (African American) 97.8; Est GFR (Non-African American) 84.4; Glucose 158 mg/dl (70-99); Potassium 4.3 mmol/L (3.5-5.1); Sodium 133 mmol/L (136-145)
[2019-11-20 07:03] LABS: Albumin Globulin Ratio 0.6 (0.9-2); Alkaline Phosphatase 78 U/L (45-117); Bilirubin,Total 0.9 mg/dl (0.2-1); Globulin 4.4 gm/dl (2.5-4.0); Troponin I < 0.015 ng/ml (0-0.045)
--- NOTE | 2019-11-20 08:18 | XRay Report ---
XR chest 2V PA/lateral CLINICAL HISTORY: follow lung opacities FEVER, SHORTNESS OF BREATH COMPARISON STUDY: 11/19/2019 FINDINGS: The heart is the upper limits of normal in size. There is no failure. There is no lobar con solidation. There are improving right basilar opacities suggesting resolving atelectasis.[ IMPRESSION: Resolving right basilar atelectatic change. No evidence of lobar consolidation ACT 112: Negative or not required by law. Electronically signed by: Cesar Moreno M.D. 11/20/2019 8:17 AM
[2019-11-20] MEDS: INSULIN GLARGINE SOLOSTAR 100 UNITS/ML 3 ML PEN SQ SCH (08:23)
[2019-11-20] MEDS: AMLODIPINE BESYLATE 5 MG TAB PO SCH (08:24)
[2019-11-20] MEDS: METOPROLOL SUCC 25MG EXT REL TAB PO SCH (08:24)
[2019-11-20] MEDS: ESCITALOPRAM OXALATE 10 MG TAB PO SCH (08:24)
[2019-11-20] MEDS ORDERED: ESCITALOPRAM OXALATE 10 MG TAB PO SCH (09:00)
[2019-11-20] MEDS: INSULIN ASPART 100 UNITS/ML 3 ML PEN SC SCH ×4 (09:04→21:13)
[2019-11-20] MEDS: ACETAMINOPHEN 325 MG TAB PO PRN ×2 (11:52→16:24)
--- NOTE | 2019-11-20 14:34 | Hospitalist Progress Note ---
Date of Service November 20, 2019 Assessment & Plan (1) Sepsis: -This is a 54 year old male with type 2 diabetes mellitus and on coumadin -symptoms of headache, sore throat, and nausea, coughing x 1 week and patient reported fever 1 day prior to presentation to the ED on 11/19/2019 -admission WBC of 11,300 and elevated lactic acid of 2.3 with fever and tachycardia that patient meets sepsis criteria -No definitive source of infection identified -COVID-19 and influenza tests were negative negative -Will continue empiric antibiotics ceftriaxone and doxycycline for now -Await blood culture -We will monitor (2) Fever: -antibiotics and prn acetaminophen -Continues to have high fever likely secondary to viral illness -We will await blood cultures (3) HTN (hypertension): -patient is normotensive despite the sepsis -hold home dose lisinopril, monitor the creatinine -continue home dose amlodipine and metoprolol -Blood pressure remains in the upper side (4) Diabetes mellitus with hyperglycemia: Type 2 diabetes mellitus with shelter current use of insulin with hyperglycemia -admission serum glucose of 351 with elevated Beta-Hydroxybutyrate, but normal anion gap -check hemoglobin A1c -given IV fluids -sliding scale insulin as needed based on finger stick glucose, continue home dose Lantus 50 units qhs, diabetic diet. hold home dose jardiance for now (5) Obesities, morbid: Obesity with BMI of 39.5 in adult -patient is 6 foor 3 inches tall (75 inches tall) with actual weight of 143.4 kg (315 lbs), adjusted body weight would have to be used to calculate fluid resuscitation and that would be 108 kg -continue home dose statin (6) Tobacco use: -patient reports he takes snuff tobacco -he declines nicotine patch while in hospital (7) DVT prophylaxis: History of chronic deep vein thrombosis of distal vein of left lower ex tremities -admission INR mildly subtherapeutic of 1.8 -continue home dose warfarin of 15 mg every Wednesday and every Wednesday and 10 mg daily on other days of the week (/Wednesday/Wednesday//Wednesday) -goal INR is between 2 to 3, place on SCDs for now in addition Full Code Angeles Wilson [phone] Admission and Anticipated Discharge Date Admission Date: November 19, 2019 Subjective 11/20/2019 The patient was seen and examined in medical floor He has been complaining of feverish feeling with sore throat but denies any chest pain, palpitation, shortness of breath He does have abdominal discomfort and has had a loose bowel movement today Denies any other significant symptoms Review of Systems Review of Systems: All systems reviewed and are unremarkable except as noted below Ear, Nose, Mouth, Throat: + sore throat; no hoarseness Gastrointestinal: + abdominal pain (Discomfort with some pain in ), + bloating and + nausea; no vomiting Physical Exam Physical Exam: Lying in bed with distress and looks flushed Constitutional: well developed, well nourished, + acute distress, + ill appearing and + obese Eyes: PERRL, conjunctivae normal, anicteric sclerae ENMT: external ear and nose normal, oropharynx normal Neck: trachea midline, no thyromegaly Respiratory: normal respiratory effort; no respiratory distress Auscultation: lungs clear to auscultation bilaterally Cardiovascular: Rate/Rhythm: regular rate and regular rhythm Heart Sounds: no murmur Extremities: + edema Gastrointestinal (Abdomen): Inspection/Auscultation: + abdomen distended and normal bowel sounds Percussion/Palpation: abdomen soft; abdomen nontender Musculoskeletal: No acute arthritis in any joints Neurologic: moves all extremities; no focal motor deficits Psychiatric: A+Ox3, euthymic affect Lymphatic: no cervical or axillary lymphadenopathy Results & Data Results & Data ([facility]) Vital Signs (Past 12 Hours) Vital Signs Temp Pulse Pulse Resp BP Pulse Ox 11/20/19 11:36 38.3 C H 102 H 20 166/77 H 92 11/20/19 07:51 111 H 11/20/19 07:30 37.9 C H 100 H 20 144/76 H 92 11/20/19 03:00 36.7 C 99 H 18 168/81 H 95 Laboratory Results Short CBC 11/20/19 Range/Units 05:50 WBC 9.92 (4.8-10.8) K/uL Hgb 15.0 (14.0-18.0) g/dL Hct 44.2 (42-52) % Plt Count 105 L (130-400) K/uL BMP 11/20/19 05:50 Sodium 133 L Potassium 4.3 Chloride 103 Carbon Dioxide 24 BUN 17 Creatinine 1.00 Glucose 158 H Calcium 8.9 Cardiac Enzymes 11/20/19 11/20/19 Range/Units 05:50 12:08 Troponin I < 0.015 < 0.015 (0-0.045) ng/ml Liver Function 11/20/19 Range/Units 05:50 Total Bilirubin 0.9 (0.2-1) mg/dl AST 31 (15-37) U/L ALT 49 (12-78) U/L Alkaline Phosphatase 78 (45-117) U/L Albumin 2.6 L (3.4-5.0) gm/dl Medications Administered Current Inpatient Medications Acetaminophen (Acetaminophen 325 Mg Tab) 650 mg PO Q4H PRN PRN Reason: Pain or Fever Stop: 12/19/19 18:37 Last Admin: 11/20/19 11:52 Dose: 650 mg Documented by: Amlodipine Besylate (Amlodipine Besylate 5 Mg Tab) 5 mg PO [facility] Stop: 12/20/19 08:59 Last Admin: 11/20/19 08:24 Dose: 5 mg Documented by: Dextrose (Dextrose 50% 50 Ml Syringe) 25 - 50 ml IV UD PRN; Protocol PRN Reason: Hypoglycemia Protocol Stop: 12/19/19 12:45 Escitalopram Oxalate (Escitalopram Oxalate 10 Mg Tab) 10 mg PO [facility] Stop: 12/20/19 08:59 Last Admin: 11/20/19 08:24 Dose: 10 mg Documented by: Glucagon (Glucagon For Inj 1 Mg Vial) 1 mg SQ UD PRN; Protocol PRN Reason: Hypoglycemia Protocol Stop: 12/19/19 12:45 Glucose (Glucose 10 Tabs/Tube) 4 - 8 tabs PO UD PRN; Protocol PRN Reason: Hypoglycemia Protocol Stop: 12/19/19 12:45 Glucose (Glucose 40% Gel 15 Gm Tube) 15 - 30 gm PO UD PRN; Protocol PRN Reason: Hypoglycemia Protocol Stop: 12/19/19 12:45 Promethazine HCl 6.25 mg/ (Sodium Chloride) 50.25 mls @ 201 mls/hr IV Q6H PRN PRN Reason: Nausea And Vomiting Stop: 12/19/19 12:49 Doxycycline Hyclate 100 mg/ (Dextrose) 110 mls @ 50 mls/hr IV Q12H [facility] Stop: 11/21/19 17:59 Last Infusion: 11/20/19 08:23 Dose: Infused Documented by: Piperacillin Sod/Tazobactam (Sod 4.5 gm/ Dextrose) 120 mls @ 30 mls/hr IV Q8H [facility]; Protocol Stop: 11/21/19 16:59 Last Admin: 11/20/19 13:34 Dose: 30 mls/hr Documented by: Ibuprofen (Ibuprofen 200 Mg Tab) 200 mg PO Q6H PRN PRN Reason: Pain or Fever Stop: 12/19/19 18:37 Influenza Virus Vaccine Quadrival (Influenza Virus Quad Vaccine 0.5 Ml Syr) 0.5 ml IM .ONCE ONE Stop: 11/23/19 16:58 Insulin Aspart (Insulin Aspart 100 Units/Ml 3 Ml Pen) 0 units SC ACHS [facility] Stop: 12/19/19 16:59 Last Admin: 11/20/19 12:18 Dose: 2 units Documented by: Insulin Glargine (Insulin Glargine Solostar 100 Units/Ml 3 Ml Pen) 50 units SQ QAM [facility] Stop: 12/20/19 08:59 Last Admin: 11/20/19 08:23 Dose: 50 units Documented by: Metoprolol Succinate (Metoprolol Succ 25mg Ext Rel Tab) 25 mg PO QAM [facility] Stop: 12/20/19 08:59 Last Admin: 11/20/19 08:24 Dose: 25 mg Documented by: Metoprolol Tartrate (Metoprolol Tartrate 1 Mg/Ml Vial) 5 mg IV Q6 PRN PRN Reason: heart rate above 110 bpm Stop: 12/19/19 17:59 Miscellaneous (Carbohydrates For Hypoglycemia ) 15 - 30 gm PO UD PRN PRN Reason: Hypoglycemia Protocol Stop: 12/19/19 12:45 Miscellaneous Information (Piperacill/Tazobac Consult Active) 1 ea N/A UD PRN PRN Reason: Consult Stop: 12/19/19 12:59 Pravastatin Sodium (Pravastatin Sod 20 Mg Tab) 20 mg PO HS [facility] Stop: 12/19/19 20:59 Last Admin: 11/19/19 22:02 Dose: 20 mg Documented by: Warfarin Sodium (Warfarin Sod 10 Mg Tab) 10 mg PO [id number]@1600 [facility] Stop: 12/19/19 16:59 Last Admin: 11/19/19 17:53 Dose: 10 mg Documented by: Warfarin Sodium (Warfarin Sod 7.5 Mg Tab) 15 mg PO MoFr@1600 [facility] Stop: 12/20/19 15:59
[2019-11-20] MEDS ORDERED: WARFARIN SOD 7.5 MG TAB PO SCH (16:00)
--- NOTE | 2019-11-20 16:44 | Electrocardiogram Report ---
Test Reason : Blood Pressure : / mmHG Vent. Rate : 120 BPM Atrial Rate : 120 BPM P-R Int : 178 ms QRS Dur : 098 ms QT Int : 300 ms P-R-T Axes : 037 -10 039 degrees QTc Int : 424 ms Sinus tachycardia Poor R wave progression, consider anterior NH vs. lead placement vs. LVH Abnormal ECG When compared with ECG of 12-AUG-2018 13:38, Minimal criteria for Anterior infarct are now Present Confirmed by Moo Dutton ([id number]) on 11/20/2019 4:43:50 PM Referred By: REFERRED SELF Confirmed By:Mike Dutton
--- NOTE | 2019-11-20 16:56 | Electrocardiogram Report ---
Test Reason : Blood Pressure : / mmHG Vent. Rate : 106 BPM Atrial Rate : 106 BPM P-R Int : 184 ms QRS Dur : 100 ms QT Int : 342 ms P-R-T Axes : 032 -07 023 degrees QTc Int : 454 ms Sinus tachycardia Poor R wave progression, consider anterior OR vs. lead placement vs. LVH Abnormal ECG When compared with ECG of 19-NOV-2019 11:41, (unconfirmed) No significant change was found Confirmed by Moo Dutton ([id number]) on 11/20/2019 4:56:51 PM Referred By: REFERRED SELF Confirmed By:Mike Dutton
[2019-11-20] MEDS ORDERED: INSULIN HUMAN REGULAR PER UNIT 5 UNITS in SYRINGE 0 ML IV STA (19:42)
[2019-11-20] MEDS ORDERED: INSULIN HUMAN REGULAR PER UNIT 5 UNITS in SYRINGE 0 ML IV ONE (19:45)
[2019-11-20] MEDS: PRAVASTATIN SOD 20 MG TAB PO SCH (20:14)
[2019-11-21] MEDS: PIPERACILLIN/TAZOBACTAM 4.5 GM in DEXTROSE 5% 100 ML IV SCH ×2 (06:04→14:21)
[2019-11-21] MEDS: DOXYCYCLINE HYCLATE 100 MG in DEXTROSE 5% 100 ML IV SCH (06:06)
[2019-11-21 06:28] LABS: Basophils # (auto) 0.01 K/uL (0-0.2); Basophils % (auto) 0.1 %; Eosinophils % (auto) 4.4 %; Hemoglobin 14.9 g/dL (14.0-18.0); Immature Granulocytes # (auto) 0.01 K/uL (0.00-0.02); Immature Granulocytes % (auto) 0.1 %; Lymphocytes # (auto) 0.86 K/uL (1.2-3.4); Lymphocytes % (auto) 12.7 %; Mean Corpuscular Hemoglobin 32.3 pg (25-34); Mean Corpuscular Hgb Conc 33.9 g/dL (32-36); Mean Corpuscular Volume 95.4 fL (80-100); Mean Platelet Volume 11.3 fL (7.4-10.4); Monocytes # (auto) 1.21 K/uL (0.11-0.59); Monocytes % (auto) 17.8 %; Neutrophils # (auto) 4.39 K/uL (1.4-6.5); Neutrophils % (auto) 64.9 %; Platelet Count 111 K/uL (130-400); RDW Coefficient of Variation 13.6 % (11.5-14.5); RDW Standard Deviation 47.7 fL (36.4-46.3); Red Blood Count 4.61 M/uL (4.7-6.1); White Blood Count 6.78 K/uL (4.8-10.8)
[2019-11-21 06:54] LABS: BUN Creatinine Ratio 16.1 (10-20); Calcium 8.4 mg/dl (8.5-10.1); Creatinine Clr Calc Pharmacy 135.1 ml/min; Est GFR (African American) 102.7; Est GFR (Non-African American) 88.6; Potassium 4.1 mmol/L (3.5-5.1)
[2019-11-21] MEDS: METOPROLOL SUCC 25MG EXT REL TAB PO SCH (08:51)
[2019-11-21] MEDS: INSULIN GLARGINE SOLOSTAR 100 UNITS/ML 3 ML PEN SQ SCH (08:52)
[2019-11-21] MEDS: AMLODIPINE BESYLATE 5 MG TAB PO SCH (08:52)
[2019-11-21] MEDS: ESCITALOPRAM OXALATE 10 MG TAB PO SCH (08:52)
[2019-11-21] MEDS: INSULIN ASPART 100 UNITS/ML 3 ML PEN SC SCH ×4 (08:53→21:10)
--- NOTE | 2019-11-21 12:09 | Hospitalist Progress Note ---
Date of Service November 21, 2019 Assessment & Plan (1) Sepsis: -This is a 54 year old male with type 2 diabetes mellitus and on coumadin -symptoms of headache, sore throat, and nausea, coughing x 1 week and patient reported fever 1 day prior to presentation to the ED on 11/19/2019 -admission WBC of 11,300 and elevated lactic acid of 2.3 with fever and tachycardia that patient meets sepsis criteria -No definitive source of infection identified -COVID-19 and influenza tests were negative negative -Will continue empiric antibiotics ceftriaxone and doxycycline for now -Await blood cultures-have been negative -Has been feeling a lot better but complains today of cough and congestion -We will get chest x-ray to make sure there is no developing pneumonia -Likely will discharge this afternoon (2) Fever: -antibiotics and prn acetaminophen -Continues to have high fever likely secondary to viral illness -We will await blood cultures-negative -No more fever and/or chills (3) HTN (hypertension): -patient is normotensive despite the sepsis -hold home dose lisinopril, monitor the creatinine -continue home dose amlodipine and metoprolol -Blood pressure remains in the upper side (4) Diabetes mellitus with hyperglycemia: 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 hold home dose jardiance for now -We will continue current diabetic regimen on discharge and advised to have follow-up with her primary care physician (5) Obesities, morbid: Obesity with BMI of 39.5 in adult -patient is 6 foor 3 inches tall (75 inches tall) with actual weight of 143.4 kg (315 lbs), adjusted body weight would have to be used to calculate fluid resuscitation and that would be 108 kg -continue home dose statin (6) Tobacco use: -patient reports he takes snuff tobacco -he declines nicotine patch while in hospital (7) DVT prophylaxis: History of chronic deep vein thrombosis of distal vein of left lower extremities -admission INR mildly subtherapeutic of 1.8 -continue home dose warfarin of 15 mg every Wednesday and every Wednesday and 10 mg daily on other days of the week (/Wednesday/Wednesday//Wednesday) -goal INR is between 2 to 3, place on SCDs for now in addition -We will continue warfarin Full Code Katie [phone] Admission and Anticipated Discharge Date Admission Date: November 19, 2019 Subjective 11/20/2019 The patient was seen and examined in medical floor He has been complaining of feverish feeling with sore throat but denies any chest pain, palpitation, shortness of breath He does have abdominal discomfort and has had a loose bowel movement today Denies any other significant symptoms 11/21/2019 The patient was seen and examined in medical telemetry unit He has been feeling a lot better but complains to have cough and nasal congestion Denies any more fever and/or chills Review of Systems Review of Systems: All systems reviewed and are unremarkable except as noted below Ear, Nose, Mouth, Throat: + sore throat; no hoarseness Respiratory: + cough and + chest congestion; no dyspnea Gastrointestinal: + bloating and + nausea; no abdominal pain (Discomfort with some pain in ), no vomiting and no diarrhea/loose stools Physical Exam Physical Exam: Lying in bed with distress and looks flushed Constitutional: well developed, well nourished and + obese; no acute distress and not ill appearing Eyes: PERRL, conjunctivae normal, anicteric sclerae ENMT: external ear and nose normal, oropharynx normal Neck: trachea midline, no thyromegaly Respiratory: normal respiratory effort; no respiratory distress Auscultation: lungs clear to auscultation bilaterally and + crackles (Coarse crackles right base) Cardiovascular: Rate/Rhythm: regular rate and regular rhythm Heart Sounds: no murmur Extremities: + edema Gastrointestinal (Abdomen): Inspection/Auscultation: + abdomen distended and normal bowel sounds Percussion/Palpation: abdomen soft; abdomen nontender Neurologic: moves all extremities; no focal motor deficits Psychiatric: A+Ox3, euthymic affect Lymphatic: no cervical or axillary lymphadenopathy Results & Data Results & Data ([facility]) Vital Signs (Past 12 Hours) Vital Signs Temp Pulse Pulse Resp BP BP Pulse Ox 11/21/19 11:48 37.7 C H 93 H 18 150/82 H 94 11/21/19 08:00 37.2 C 63 18 144/81 H 96 11/21/19 07:27 100 H 11/21/19 03:41 36.9 C 86 18 137/86 94 11/21/19 01:45 80 Laboratory Results Short CBC 11/21/19 Range/Units 06:10 WBC 6.78 (4.8-10.8) K/uL Hgb 14.9 (14.0-18.0) g/dL Hct 44.0 (42-52) % Plt Count 111 L (130-400) K/uL BMP 11/21/19 06:10 Sodium 136 Potassium 4.1 Chloride 102 Carbon Dioxide 26 BUN 16 Creatinine 0.96 Glucose 205 H Calcium 8.4 L Cardiac Enzymes 11/20/19 Range/Units 12:08 Troponin I < 0.015 (0-0.045) ng/ml Medications Administered Current Inpatient Medications Acetaminophen (Acetaminophen 325 Mg Tab) 650 mg PO Q4H PRN PRN Reason: Pain or Fever Stop: 12/19/19 18:37 Last Admin: 11/20/19 16:24 Dose: 650 mg Documented by: Amlodipine Besylate (Amlodipine Besylate 5 Mg Tab) 5 mg PO [facility] Stop: 12/20/19 08:59 Last Admin: 11/21/19 08:52 Dose: 5 mg Documented by: Dextrose (Dextrose 50% 50 Ml Syringe) 25 - 50 ml IV UD PRN; Protocol PRN Reason: Hypoglycemia Protocol Stop: 12/19/19 12:45 Escitalopram Oxalate (Escitalopram Oxalate 10 Mg Tab) 10 mg PO [facility] Stop: 12/20/19 08:59 Last Admin: 11/21/19 08:52 Dose: 10 mg Documented by: Glucagon (Glucagon For Inj 1 Mg Vial) 1 mg SQ UD PRN; Protocol PRN Reason: Hypoglycemia Protocol Stop: 12/19/19 12:45 Glucose (Glucose 10 Tabs/Tube) 4 - 8 tabs PO UD PRN; Protocol PRN Reason: Hypoglycemia Protocol Stop: 12/19/19 12:45 Glucose (Glucose 40% Gel 15 Gm Tube) 15 - 30 gm PO UD PRN; Protocol PRN Reason: Hypoglycemia Protocol Stop: 12/19/19 12:45 Promethazine HCl 6.25 mg/ (Sodium Chloride) 50.25 mls @ 201 mls/hr IV Q6H PRN PRN Reason: Nausea And Vomiting Stop: 12/19/19 12:49 Doxycycline Hyclate 100 mg/ (Dextrose) 110 mls @ 50 mls/hr IV Q12H [facility] Stop: 11/21/19 17:59 Last Infusion: 11/21/19 09:04 Dose: Infused Documented by: Piperacillin Sod/Tazobactam (Sod 4.5 gm/ Dextrose) 120 mls @ 30 mls/hr IV Q8H [facility]; Protocol Stop: 11/21/19 16:59 Last Infusion: 11/21/19 10:07 Dose: Infused Documented by: Ibuprofen (Ibuprofen 200 Mg Tab) 200 mg PO Q6H PRN PRN Reason: Pain or Fever Stop: 12/19/19 18:37 Last Admin: 11/20/19 19:26 Dose: 200 mg Documented by: Influenza Virus Vaccine Quadrival (Influenza Virus Quad Vaccine 0.5 Ml Syr) 0.5 ml IM .ONCE ONE Stop: 11/23/19 16:58 Insulin Aspart (Insulin Aspart 100 Units/Ml 3 Ml Pen) 0 units SC ACHS [facility] Stop: 12/19/19 16:59 Last Admin: 11/21/19 08:53 Dose: 10 units Documented by: Insulin Glargine (Insulin Glargine Solostar 100 Units/Ml 3 Ml Pen) 50 units SQ QAM [facility] Stop: 12/20/19 08:59 Last Admin: 11/21/19 08:52 Dose: 50 units Documented by: Metoprolol Succinate (Metoprolol Succ 25mg Ext Rel Tab) 25 mg PO QAM [facility] Stop: 12/20/19 08:59 Last Admin: 11/21/19 08:51 Dose: 25 mg Documented by: Metoprolol Tartrate (Metoprolol Tartrate 1 Mg/Ml Vial) 5 mg IV Q6 PRN PRN Reason: heart rate above 110 bpm Stop: 12/19/19 17:59 Miscellaneous (Carbohydrates For Hypoglycemia ) 15 - 30 gm PO UD PRN PRN Reason: Hypoglycemia Protocol Stop: 12/19/19 12:45 Miscellaneous Information (Piperacill/Tazobac Consult Active) 1 ea N/A UD PRN PRN Reason: Consult Stop: 12/19/19 12:59 Pravastatin Sodium (Pravastatin Sod 20 Mg Tab) 20 mg PO HS [facility] Stop: 12/19/19 20:59 Last Admin: 11/20/19 20:14 Dose: 20 mg Documented by: Warfarin Sodium (Warfarin Sod 10 Mg Tab) 10 mg PO [id number]@1600 [facility] Stop: 12/19/19 16:59 Last Admin: 11/19/19 17:53 Dose: 10 mg Documented by: Warfarin Sodium (Warfarin Sod 7.5 Mg Tab) 15 mg PO [id number]@1600 [facility] Stop: 12/20/19 15:59 Last Admin: 11/20/19 16:18 Dose: 15 mg Documented by:
[2019-11-21] MEDS: ACETAMINOPHEN 325 MG TAB PO PRN (12:28)
--- NOTE | 2019-11-21 14:00 | XRay Report ---
XR chest 2V PA/lateral CLINICAL HISTORY: Pneumonia COMPARISON STUDY: 11/20/2019 FINDINGS: The heart is mildly enlarged. There are right lower lobe airspace opacities consistent with a pneumonia. Film subsequent to treatment are recommended in follow-up. There are no static of pleur al effusions.[ IMPRESSION: Right lower lobe airspace opacities indicative of a pneumonia. Films subsequent to treatm ent are recommended in follow-up. ACT 112: Negative or not required by law. Electronically signed by: Cesar Moreno M.D. 11/21/2019 1:58 PM
[2019-11-21] MEDS: AMOXICILLIN/CLAVULANATE 875 MG TAB PO SCH (16:31)
[2019-11-21] MEDS: WARFARIN SOD 10 MG TAB PO SCH (16:31)
[2019-11-21] MEDS: PRAVASTATIN SOD 20 MG TAB PO SCH (21:12)
[2019-11-22 06:35] LABS: Basophils # (auto) 0.02 K/uL (0-0.2); Basophils % (auto) 0.3 %; Eosinophils # (auto) 0.43 K/uL (0-0.5); Eosinophils % (auto) 7.1 %; Hemoglobin 14.3 g/dL (14.0-18.0); Immature Granulocytes # (auto) 0.01 K/uL (0.00-0.02); Immature Granulocytes % (auto) 0.2 %; Lymphocytes % (auto) 21.4 %; Mean Corpuscular Hemoglobin 32.1 pg (25-34); Mean Corpuscular Volume 94.2 fL (80-100); Mean Platelet Volume 11.4 fL (7.4-10.4); Monocytes # (auto) 0.86 K/uL (0.11-0.59); Monocytes % (auto) 14.1 %; Neutrophils # (auto) 3.46 K/uL (1.4-6.5); Neutrophils % (auto) 56.9 %; Platelet Count 124 K/uL (130-400); RDW Coefficient of Variation 13.4 % (11.5-14.5); RDW Standard Deviation 46.2 fL (36.4-46.3); Red Blood Count 4.46 M/uL (4.7-6.1); White Blood Count 6.08 K/uL (4.8-10.8)
[2019-11-22 07:15] LABS: BUN Creatinine Ratio 15.1 (10-20); Calcium 8.8 mg/dl (8.5-10.1); Creatinine Clr Calc Pharmacy 151.9 ml/min; Est GFR (African American) 113.7; Est GFR (Non-African American) 98.1
[2019-11-22] MEDS: METOPROLOL SUCC 25MG EXT REL TAB PO SCH (08:29)
[2019-11-22] MEDS: AMLODIPINE BESYLATE 5 MG TAB PO SCH (08:29)
[2019-11-22] MEDS: ESCITALOPRAM OXALATE 10 MG TAB PO SCH (08:29)
[2019-11-22] MEDS: INSULIN GLARGINE SOLOSTAR 100 UNITS/ML 3 ML PEN SQ SCH (08:29)
[2019-11-22] MEDS: AMOXICILLIN/CLAVULANATE 875 MG TAB PO SCH (08:29)
[2019-11-22] MEDS: INSULIN ASPART 100 UNITS/ML 3 ML PEN SC SCH ×2 (08:30→12:36)
--- NOTE | 2019-11-22 09:51 | Hospitalist Progress Note ---
Date of Service November 22, 2019 Assessment & Plan (1) Sepsis: Community-acquired pneumonia -This is a 54 year old male with type 2 diabetes mellitus and on coumadin -symptoms of headache, sore throat, and nausea, coughing x 1 week and patient reported fever 1 day prior to presentation to the ED on 11/19/2019 -admission WBC of 11,300 and elevated lactic acid of 2.3 with fever and tachycardia that patient meets sepsis criteria -No definitive source of infection identified initially -COVID-19 and influenza tests were negative negative -empiric antibiotics ceftriaxone and doxycycline for now -Await blood cultures-have been negative -Has been feeling a lot better but complained of cough and congestion -Repeat chest x-ray concerning for developing pneumonia -Clinically much improved today, likely will discharge this afternoon (2) Fever: -antibiotics and prn acetaminophen -Had fever likely d/t committee acquired pneumonia -We will await blood cultures-negative -No more fever and/or chills (3) HTN (hypertension): -patient is normotensive despite the sepsis -hold home dose lisinopril, monitor the creatinine -continue home dose amlodipine and metoprolol -Blood pressure remains in the upper side (4) Diabetes mellitus with hyperglycemia: 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 hold home dose jardiance for now -We will continue current diabetic regimen on discharge and advised to have follow-up with his primary care physician (5) Obesities, morbid: Obesity with BMI of 39.5 in adult -patient is 6 foor 3 inches tall (75 inches tall) with actual weight of 143.4 kg (315 lbs), adjusted body weight would have to be used to calculate fluid resuscitation and that would be 108 kg -continue home dose statin (6) Tobacco use: -patient reports he takes snuff tobacco -he declines nicotine patch while in hospital (7) DVT prophylaxis: History of chronic deep vein thrombosis of distal vein of left lower extremities -admission INR mildly subtherapeutic of 1.8 -continue home dose warfarin of 15 mg every Wednesday and every Wednesday and 10 mg daily on other days of the week (/Wednesday/Wednesday//Wednesday) -goal INR is between 2 to 3, place on SCDs for now in addition -We will continue warfarin Full Code Katie [phone] Admission and Anticipated Discharge Date Admission Date: November 19, 2019 Subjective Patient is sitting up in bed, in no acute distress, denies any fevers or chills currently. Says he has only occasional cough which is getting better. He is inquiring about going home. Review of Systems Review of Systems: All systems reviewed & are unremarkable except as noted in HPI & below Constitutional: no fever and no chills Respiratory: + cough (Occasional, improving); no dyspnea Cardiovascular: no chest pain and no palpitations Gastrointestinal: no abdominal pain, no nausea and no vomiting Genitourinary: no dysuria Physical Exam Physical Exam: Physical Exam: Elderly obese male, lying in bed in NAD Constitutional: well developed, well nourished and + obese; no acute distress and not ill appearing Eyes: PERRL, EOMI, conjunctivae normal, anicteric sclerae ENMT: external ear and nose normal, oropharynx normal Neck: trachea midline, no thyromegaly Respiratory: normal respiratory effort; no respiratory distress Auscultation: lungs clear to auscultation bilaterally, no wheezing, + rhonchi Cardiovascular: Rate/Rhythm: regular rate and regular rhythm Heart Sounds: no murmur Extremities: + mild b/l edema Gastrointestinal (Abdomen): Inspection/Auscultation: + abdomen distended and normal bowel sounds Percussion/Palpation: abdomen soft; abdomen nontender, obese Neurologic: moves all extremities; no focal motor deficits Psychiatric: A+Ox3, euthymic affect Results & Data Results & Data ([facility]) Vital Signs (Past 12 Hours) Vital Signs Temp Pulse Pulse Resp BP BP Pulse Ox 11/22/19 07:27 36.7 C 72 18 130/81 95 11/22/19 07:23 70 11/22/19 04:13 36.8 C 77 20 134/85 95 11/22/19 00:00 91 H 11/21/19 23:54 37.4 C 86 20 151/83 H 94 Laboratory Results 11/22/19 11/22/19 11/22/19 Range/Units 07:31 05:51 05:51 WBC 6.08 (4.8-10.8) K/uL RBC 4.46 L (4.7-6.1) M/uL Hgb 14.3 (14.0-18.0) g/dL Hct 42.0 (42-52) % MCV 94.2 (80-100) fL MCH 32.1 (25-34) pg MCHC 34.0 (32-36) g/dL RDW Std Deviation 46.2 (36.4-46.3) fL RDW Coeff of Cassandra 13.4 (11.5-14.5) % Plt Count 124 L (130-400) K/uL MPV 11.4 H (7.4-10.4) fL Immature Gran % (Auto) 0.2 % Neut % (Auto) 56.9 % Lymph % (Auto) 21.4 % [place] % (Auto) 14.1 % Eos % (Auto) 7.1 % Baso % (Auto) 0.3 % Neut # (Auto) 3.46 (1.4-6.5) K/uL Lymph # (Auto) 1.30 (1.2-3.4) K/uL [place] # (Auto) 0.86 H (0.11-0.59) K/uL Eos # (Auto) 0.43 (0-0.5) K/uL Baso # (Auto) 0.02 (0-0.2) K/uL Immature Gran # (Auto) 0.01 (0.00-0.02) K/uL Sodium 137 (136-145) mmol/L Potassium 4.0 (3.5-5.1) mmol/L Chloride 103 (98-107) mmol/L Carbon Dioxide 29 (21-32) mmol/L Anion Gap 5.0 (3-11) BUN 13 (7-18) mg/dl Creatinine 0.85 (0.6-1.4) mg/dl Est Cr Clr Drug Dosing 151.9 ml/min Est GFR ( Amer) 113.7 Est GFR (Non-Af Amer) 98.1 BUN/Creatinine Ratio 15.1 (10-20) Glucose 170 H (70-99) mg/dl POC Glucose 175 H (70-99) mg/dl Calcium 8.8 (8.5-10.1) mg/dl 11/22/19 11/21/19 11/21/19 Range/Units 00:05 20:17 16:35 WBC (4.8-10.8) K/uL RBC (4.7-6.1) M/uL Hgb (14.0-18.0) g/dL Hct (42-52) % MCV (80-100) fL MCH (25-34) pg MCHC (32-36) g/dL RDW Std Deviation (36.4-46.3) fL RDW Coeff of Cassandra (11.5-14.5) % Plt Count (130-400) K/uL MPV (7.4-10.4) fL Immature Gran % (Auto) % Neut % (Auto) % Lymph % (Auto) % [place] % (Auto) % Eos % (Auto) % Baso % (Auto) % Neut # (Auto) (1.4-6.5) K/uL Lymph # (Auto) (1.2-3.4) K/uL [place] # (Auto) (0.11-0.59) K/uL Eos # (Auto) (0-0.5) K/uL Baso # (Auto) (0-0.2) K/uL Immature Gran # (Auto) (0.00-0.02) K/uL Sodium (136-145) mmol/L Potassium (3.5-5.1) mmol/L Chloride (98-107) mmol/L Carbon Dioxide (21-32) mmol/L Anion Gap (3-11) BUN (7-18) mg/dl Creatinine (0.6-1.4) mg/dl Est Cr Clr Drug Dosing ml/min Est GFR ( Amer) Est GFR (Non-Af Amer) BUN/Creatinine Ratio (10-20) Glucose (70-99) mg/dl POC Glucose 199 H 254 H 240 H (70-99) mg/dl Calcium (8.5-10.1) mg/dl 11/21/19 11/21/19 Range/Units 11:29 11:26 WBC (4.8-10.8) K/uL RBC (4.7-6.1) M/uL Hgb (14.0-18.0) g/dL Hct (42-52) % MCV (80-100) fL MCH (25-34) pg MCHC (32-36) g/dL RDW Std Deviation (36.4-46.3) fL RDW Coeff of Cassandra (11.5-14.5) % Plt Count (130-400) K/uL MPV (7.4-10.4) fL Immature Gran % (Auto) % Neut % (Auto) % Lymph % (Auto) % [place] % (Auto) % Eos % (Auto) % Baso % (Auto) % Neut # (Auto) (1.4-6.5) K/uL Lymph # (Auto) (1.2-3.4) K/uL [place] # (Auto) (0.11-0.59) K/uL Eos # (Auto) (0-0.5) K/uL Baso # (Auto) (0-0.2) K/uL Immature Gran # (Auto) (0.00-0.02) K/uL Sodium (136-145) mmol/L Potassium (3.5-5.1) mmol/L Chloride (98-107) mmol/L Carbon Dioxide (21-32) mmol/L Anion Gap (3-11) BUN (7-18) mg/dl Creatinine (0.6-1.4) mg/dl Est Cr Clr Drug Dosing ml/min Est GFR ( Amer) Est GFR (Non-Af Amer) BUN/Creatinine Ratio (10-20) Glucose (70-99) mg/dl POC Glucose 362 H* 344 H* (70-99) mg/dl Calcium (8.5-10.1) mg/dl Medications Administered Current Inpatient Medications Acetaminophen (Acetaminophen 325 Mg Tab) 650 mg PO Q4H PRN PRN Reason: Pain or Fever Stop: 12/19/19 18:37 Last Admin: 11/21/19 12:28 Dose: 650 mg Documented by: Amlodipine Besylate (Amlodipine Besylate 5 Mg Tab) 5 mg PO QAM [facility] Stop: 12/20/19 08:59 Last Admin: 11/22/19 08:29 Dose: 5 mg Documented by: Amoxicillin/Clavulanate Potassium (Amoxicillin/Clavulanate 875 Mg Tab) 1 tab PO BIDM [facility] Stop: 11/28/19 16:59 Last Admin: 10/07/20 08:29 Dose: 1 tab Documented by: Dextrose (Dextrose 50% 50 Ml Syringe) 25 - 50 ml IV UD PRN; Protocol PRN Reason: Hypoglycemia Protocol Stop: 12/19/19 12:45 Escitalopram Oxalate (Escitalopram Oxalate 10 Mg Tab) 10 mg PO QAM [facility] Stop: 12/20/19 08:59 Last Admin: 11/22/19 08:29 Dose: 10 mg Documented by: Glucagon (Glucagon For Inj 1 Mg Vial) 1 mg SQ UD PRN; Protocol PRN Reason: Hypoglycemia Protocol Stop: 12/19/19 12:45 Glucose (Glucose 10 Tabs/Tube) 4 - 8 tabs PO UD PRN; Protocol PRN Reason: Hypoglycemia Protocol Stop: 12/19/19 12:45 Glucose (Glucose 40% Gel 15 Gm Tube) 15 - 30 gm PO UD PRN; Protocol PRN Reason: Hypoglycemia Protocol Stop: 12/19/19 12:45 Promethazine HCl 6.25 mg/ (Sodium Chloride) 50.25 mls @ 201 mls/hr IV Q6H PRN PRN Reason: Nausea And Vomiting Stop: 12/19/19 12:49 Ibuprofen (Ibuprofen 200 Mg Tab) 200 mg PO Q6H PRN PRN Reason: Pain or Fever Stop: 12/19/19 18:37 Last Admin: 11/20/19 19:26 Dose: 200 mg Documented by: Influenza Virus Vaccine Quadrival (Influenza Virus Quad Vaccine 0.5 Ml Syr) 0.5 ml IM .ONCE ONE Stop: 11/23/19 16:58 Insulin Aspart (Insulin Aspart 100 Units/Ml 3 Ml Pen) 0 units SC ACHS [facility] Stop: 12/19/19 16:59 Last Admin: 11/22/19 08:30 Dose: 10 units Documented by: Insulin Glargine (Insulin Glargine Solostar 100 Units/Ml 3 Ml Pen) 50 units SQ [facility] Stop: 12/20/19 08:59 Last Admin: 11/22/19 08:29 Dose: 50 units Documented by: Metoprolol Succinate (Metoprolol Succ 25mg Ext Rel Tab) 25 mg PO QAM [facility] Stop: 12/20/19 08:59 Last Admin: 11/22/19 08:29 Dose: 25 mg Documented by: Metoprolol Tartrate (Metoprolol Tartrate 1 Mg/Ml Vial) 5 mg IV Q6 PRN PRN Reason: heart rate above 110 bpm Stop: 12/19/19 17:59 Miscellaneous (Carbohydrates For Hypoglycemia ) 15 - 30 gm PO UD PRN PRN Reason: Hypoglycemia Protocol Stop: 12/19/19 12:45 Pravastatin Sodium (Pravastatin Sod 20 Mg Tab) 20 mg PO [facility] Stop: 12/19/19 20:59 Last Admin: 11/21/19 21:12 Dose: 20 mg Documented by: Warfarin Sodium (Warfarin Sod 10 Mg Tab) 10 mg PO [id number] [facility] Stop: 12/19/19 16:59 Last Admin: 11/21/19 16:31 Dose: 10 mg Documented by: Warfarin Sodium (Warfarin Sod 7.5 Mg Tab) 15 mg PO [id number] [facility] Stop: 12/20/19 15:59 Last Admin: 11/20/19 16:18 Dose: 15 mg Documented by:
--- NOTE | 2019-11-22 13:54 | Discharge Summary ---
Date of Service November 22, 2019 Admission HPI Per Admitting Provider -This is a 54 year old male with type 2 diabetes mellitus and on coumadin -symptoms of headache, sore throat, and nausea, coughing x 1 week and patient reported fever 1 day prior to presentation to the ED on 11/19/2019 -admission WBC of 11,300 and elevated lactic acid of 2.3 with fever and tachycardia that patient meets sepsis criteria -admission CXR: The heart is mildly enlarged. There are low lung volumes. There are right basilar airspace opacities, atelectasis versus pneumonia. There are no pleural effusions. There is no overt failure -COVID-19 and Influenza tests were performed and are negative -patient was empirically given ceftriaxone 2000 mg and azithromycin 500 mg in the ED and 2000 ml IV fluids, 2nd lactic acid level pending Other Review of systems are negative Family History of Mother with history of cancer and strong family history fo Diabetes Mellitus Type 2 and Hypertension Primary Care Provider: Giuliana Bobby PA-C Admission Exam Per Admitting Provider Constitutional: + morbidly obese Eyes: PERRL, conjunctivae normal, anicteric sclerae EOM intact bilaterally ENMT: external ear and nose normal, oropharynx normal Neck: trachea midline, no thyromegaly normal visual inspection Respiratory: normal respiratory effort no wheezing Cardiovascular: Rate/Rhythm: + tachycardic Gastrointestinal (Abdomen): normal bowel sounds, soft, nontender, no hepatosplenomegaly Musculoskeletal: Head/Neck/Chest: normocephalic and head atraumatic Neurologic: PERRL, EOMI, accommodation nl, no face palsy, no dysarthria CN's II-XI intact bilaterally Psychiatric: A+Ox3, euthymic affect Principal Diagnosis Sepsis d/t Community-acquired pneumonia Hyperglycemia Discharge Exam Physical Exam: Elderly obese male, lying in bed in NAD Constitutional: well developed, well nourished and + obese; no acute distress and not ill appearing Eyes: PERRL, EOMI, conjunctivae normal, anicteric sclerae ENMT: external ear and nose normal, oropharynx normal Neck: trachea midline, no thyromegaly Respiratory: normal respiratory effort; no respiratory distress Auscultation: lungs clear to auscultation bilaterally, no wheezing, + rhonchi Cardiovascular: Rate/Rhythm: regular rate and regular rhythm Heart Sounds: no murmur Extremities: + mild b/l edema Gastrointestinal (Abdomen): Inspection/Auscultation: + abdomen distended and normal bowel sounds Percussion/Palpation: abdomen soft; abdomen nontender, obese Neurologic: moves all extremities; no focal motor deficits Psychiatric: A+Ox3, euthymic affect Discharge Data Allergies Allergy/AdvReac Type Severity Reaction Status Date / Time No Known Allergies Allergy Verified 11/19/19 12:39 Consultations 11/19/19 12:40 ED Decision to Admit Stat 11/19/19 16:40 Consult Case Management - Discharge Planning Routine Ordered Studies 11/19/19 14:18 CT head/brain wo con Routine IMPRESSION: No acute intracranial findings CT sinus wo con Routine IMPRESSION: 1. No evidence of acute sinusitis 2. No evidence of significant ostiomeatal unit narrowing Diabetes Follow up Diabetes Follow-up Needed for HgbA1c >9% Hospital Course (1) Sepsis: Community-acquired pneumonia -This is a 54 year old male with type 2 diabetes mellitus and on coumadin -symptoms of headache, sore throat, and nausea, coughing x 1 week and patient reported fever 1 day prior to presentation to the ED on 11/19/2019 -admission WBC of 11,300 and elevated lactic acid of 2.3 with fever and tachycardia that patient meets sepsis criteria -No definitive source of infection identified initially -COVID-19 and influenza tests were negative negative -empiric antibiotics ceftriaxone and doxycycline, now switched to PO Augmentin and doxycycline -Await blood cultures-have been negative -Has been feeling a lot better but complained of cough and congestion -Repeat chest x-ray concerning for developing pneumonia -Clinically much improved today, likely will discharge this afternoon -Recommend to continue antibiotic treatment, Mucinex, incentive spirometry, and outpatient follow-up with PCP (2) Fever: -antibiotics and prn acetaminophen -Had fever likely d/t committee acquired pneumonia -We will await blood cultures-negative -No more fever and/or chills (3) HTN (hypertension): -patient is normotensive despite the sepsis -hold home dose lisinopril, monitor the creatinine -continue home dose amlodipine and metoprolol -Blood pressure remains in the upper side (4) Diabetes mellitus with hyperglycemia: Type 2 diabetes mellitus with [facility] current use of insulin with hyperglycemia -admission serum glucose of 351 with elevated Beta-Hydroxybutyrate, but normal anion gap -check hemoglobin [id number] at 10.4 -given IV fluids -sliding scale insulin as needed based on finger stick glucose, continue home dose Lantus 50 units qhs, diabetic diet. hold home dose jardiance for now -We will continue current diabetic regimen on discharge and advised to have follow-up with his primary care physician (5) Obesities, morbid: Obesity with BMI of 39.5 in adult -patient is 6 foor 3 inches tall (75 inches tall) with actual weight of 143.4 kg (315 lbs), adjusted body weight would have to be used to calculate fluid resuscitation and that would be 108 kg -continue home dose statin (6) Tobacco use: -patient reports he takes snuff tobacco -he declines nicotine patch while in hospital (7) DVT prophylaxis: History of chronic deep vein thrombosis of distal vein of left lower extremities -admission INR mildly subtherapeutic of 1.8 -continue home dose warfarin of 15 mg every Wednesday and every Wednesday and 10 mg daily on other days of the week (/Wednesday/Wednesday//Wednesday) -goal INR is between 2 to 3, place on SCDs for now in addition -We will continue warfarin Angeles Wilson [phone] Total Time Total Time Spent Total Time Spent (In Minutes): 40 Total Time Includes: Examination of the Patient, Discharge Planning and Medication Reconciliation Discharge Plan Discharge Items Patient Disposition: Home - Self-Care Reason For Visit: FEVER, HYPERGLYCEMIA WITH DIABETES MELLITUS TYPE 2 Discharge Diagnosis: Sepsis d/t Community-acquired pneumonia Hyperglycemia Condition on Discharge: Good Activity: Per Instructions section Non-emergency contact: Primary Care Provider Call non-emergency contact if: you have any medication questions and your sy mptoms worsen Follow-up/Referrals: Giuliana Bobby PA-C [Primary Care Provider] - (Date & Time 11/24/2019 11:10 AM Provider Verito Austin [facility] ) Diet: Carb Consistent or DM2 Addtl Attending Provider Instructions: Take antibiotic, Augmentin and doxycycline as prescribed for next 5 days. Follow-up with primary care doctor on November 23, the appointment was already scheduled for you. You can also take Mucinex for next 5 days. Use incentive spirometer, which you were given in the hospital. Pending Studies at Discharge: Yes Studies:: Blood culture, November 18, negative for 48 hours, final results pending Stand-Alone Forms: My [facility], Smoking Cessation Medications and DC Order Prescriptions: New amoxicillin-pot clavulanate [Augmentin] 875-125 mg Tablet 1 tab PO BIDM 5 Days Qty: 10 RF: 0 acetaminophen 325 mg Tablet 650 mg PO Q4H PRN (Reason: fever or pain) Qty: 10 RF: 0 guaifenesin [Mucinex] 600 mg Tablet Extended Release 12hr 600 mg PO Q12 5 Days Qty: 10 RF: 0 doxycycline hyclate 100 mg capsule 100 mg PO BID Qty: 10 RF: 0 Continued Lantus Solostar U-100 Insulin 100 unit/mL (3 mL) Insulin Pen 50 unit SUBCUT QAM RF: 0 pravastatin 20 mg tablet 20 mg PO HS RF: 0 warfarin 5 mg tablet See Rx Instructions .ROUTE .COMPLEX RF: 0 lisinopril 20 mg Tablet 20 mg PO QAM RF: 0 amlodipine 5 mg Tablet 5 mg PO QAM RF: 0 metoprolol succinate 25 mg Tablet Extended Release 24 Hr 25 mg PO QAM RF: 0 escitalopram oxalate [Lexapro] 10 mg Tablet 10 mg PO QAM RF: 0 metformin 1,000 mg Tablet Extended Release 24hr 1,000 mg PO BID RF: 0 Jardiance 25 mg Tablet 25 mg PO QAM RF: 0 liraglutide (weight loss) 3 mg/0.5 mL (18 mg/3 mL) Pen Injector 1.8 mg SUBCUT HS RF: 0 repaglinide 2 mg Tablet 2 mg PO AC RF: 0 Discharge Orders: Discharge Order (Routine); Ordered 11/22/19 Ordered By: Robert Forman/Other Patient Handouts: Managing Type 2 Diabetes, Diabetes: Meal Planning Admission Data Admit Date/Time: 11/19/19 13:03 Attending Provider: Robert De Jesus Admit Provider: Jc Levy Primary Care Provider: Giuliana Bobby Other Providers: Jc Levy ; Gokul Aguilar
[2019-11-22] MEDS ORDERED: guaiFENesin 600 MG TABCR PO SCH (21:00)
[2019-11-23] MEDS ORDERED: INFLUENZA ADMINISTRATION CHARGE ONE (16:57)
[2019-11-23] MEDS ORDERED: INFLUENZA VIRUS QUAD VACCINE 0.5 ML SYR IM ONE (16:57)
== END 2019-11-22 15:40 | disposition home or self-care (01) | DRG 871 ==
LOC: ED 10:42 → 2W 13:03 → SUATTDRO 13:03 → 2W 15:39 → 2N 11-20 21:42
DX: E11.40 Type 2 diabetes mellitus with diabetic neuropathy, unspecified; Z68.39 Body mass index [BMI] 39.0-39.9, adult; I11.0 Hypertensive heart disease with heart failure; F17.220 Nicotine dependence, chewing tobacco, uncomplicated; Z83.3 Family history of diabetes mellitus; Z79.01 Long term (current) use of anticoagulants; E66.01 Morbid (severe) obesity due to excess calories; Z79.899 Other long term (current) drug therapy; E78.5 Hyperlipidemia, unspecified; E11.65 Type 2 diabetes mellitus with hyperglycemia; Z86.718 Personal history of other venous thrombosis and embolism; Z79.4 Long term (current) use of insulin; J18.9 Pneumonia, unspecified organism; A41.9 Sepsis, unspecified organism; Z82.49 Family history of ischemic heart disease and other diseases of the circulatory system; I50.32 Chronic diastolic (congestive) heart failure; Z20.828 Contact with and (suspected) exposure to other viral communicable diseases